=== PATIENT | female | born 1930 | race Caucasian/White ===

== ENCOUNTER → 2016-12-19 | Outpatient (CLI) | payer MEDICARE ==
--- NOTE | 2016-12-21 11:19 | CARD ---
APPROVED REPORT EXAM: Two-dimensional and M-mode echocardiogram with Doppler and color Doppler. Other Information Quality : GoodHR: 81bpm INDICATION Mitral regurgitation RISK FACTORS Hypertension 2D DIMENSIONS Left Atrium(2D)3.7 (1.6-4.0cm)IVSd0.9 (0.7-1.1cm) Aortic Root(2D)3.1 (2.0-3.7cm)LVDd4.2 (3.9-5.9cm) LVOT Diameter2.1 (1.8-2.4cm)PWd0.9 (0.7-1.1cm) LVDs2.8 (2.5-4.0cm)FS (%) 33.8 % SV49.5 mlLVEF(%)63.1 (>50%) Aortic Valve AoV Peak Sathish.188.1cm/sAoV VTI35.2cm AO Peak GR.14.2mmHgLVOT Peak Sathish.104.5cm/s AO Mean GR.7mmHgAVA (VMAX)1.97cm2 Mitral Valve MV E Vmlgioyf740.1cm/sMV DECEL GWIO601tt MV A Enfmldam17.5cm/sE/A Ratio1.6 MV A Wlldtiyj852xx Pulmonary Valve PV Peak Kfeyzsuk53.3cm/s Tricuspid Valve TR P. Xqjfpftk753ih/sTR Peak Gr.37mmHg Pulmonary Vein S1 Anvtpdem54.5cm/sD2 Jtewamfe546.6cm/s PVa druqjroy17qxkk LEFT VENTRICLE The left ventricle is normal size. There is normal left ventricular wall thickness. The left ventricu lar systolic function is normal. The Ejection Fraction is 60-65%. There is normal LV segmental wall m otion. Transmitral Doppler flow pattern is Grade IV-fixed restrictive diastolic dysfunction. Mitral v alve deceleration time is 143. RIGHT VENTRICLE The right ventricle is normal size. There is normal right ventricular wall thickness. The right ventr icular systolic function is normal. ATRIA The left atrium is severely dilated. The right atrium is mildly dilated. The interatrial septum is in tact with no evidence for an atrial septal defect or patent foramen ovale as noted on 2-D or Doppler imaging. AORTIC VALVE The aortic valve is mildly sclerotic. The aortic valve is trileaflet. Doppler and Color Flow revealed mild aortic regurgitation. There is no significant aortic valvular stenosis. MITRAL VALVE Mitral annular calcification is moderate. The mitral valve leaflets are thickened. There is mild mitr al valve prolapse of the posterior leaflet present. There is a flail posterior mitral valve leaflet s een well projected into the left atrium in multiple views. There is no mitral valve stenosis. Doppler and Color Flow revealed severe mitral regurgitation. TRICUSPID VALVE Doppler and Color Flow revealed moderate tricuspid regurgitation. The pulmonary artery systolic press ure is estimated at 42 mmHg. There is mild-moderate pulmonary hypertension. PULMONIC VALVE Doppler and Color Flow revealed trace pulmonic valvular regurgitation. There is no pulmonic valvular stenosis. GREAT VESSELS The aortic root is normal in size. The ascending aorta is normal in size. The pulmonary artery is nor mal. The IVC is normal in size and collapses >50% with inspiration. PERICARDIAL EFFUSION There is no evidence of significant pericardial effusion. Critical Notification Critical Value: No <Conclusion> The left ventricular systolic function is normal. The Ejection Fraction is 60-65%. There is normal LV segmental wall motion. The left atrium is severely dilated. Mld aortic regurgitation. Severe mitral regurgitation. Moderate tricuspid regurgitation. The pulmonary artery systolic pressure is estimated at 42 mmHg. There is mild-moderate pulmonary hypertension. There is no evidence of significant pericardial effusion.
== END | disposition home or self-care (01) ==
LOC: ECHO 13:54
PROVIDERS: ATTEND Internal Medicine Cardiovascular Disease
DX: I34.0 Nonrheumatic mitral (valve) insufficiency (principal); I34.1 Nonrheumatic mitral (valve) prolapse; I27.2 Other secondary pulmonary hypertension; I07.1 Rheumatic tricuspid insufficiency; I35.1 Nonrheumatic aortic (valve) insufficiency
CPT/HCPCS: 93306

== ENCOUNTER → 2018-07-04 | Outpatient (CLI) | payer BC, MEDICARE ==
[~2018-07-04] MED LIST: REGADENOSON 0.4 MG/5 ML DISP.SYRIN. IV ONE
--- NOTE | 2018-07-04 12:16 | CARD ---
MR#: [id number] Date of Study: 07/04/2018 Ordering Physician: DOUG ANDERSON, Referring Physician: DOUG ANDERSON Tech: Martha Lopez RDCS APPROVED REPORT EXAM: Two-dimensional and M-mode echocardiogram with Doppler and color Doppler. Other Information Quality : GoodHR: 65bpm Rhythm : NSR INDICATION Mitral Valve Disease 2D DIMENSIONS Left Atrium(2D)5.2 (1.6-4.0cm)IVSd1.1 (0.7-1.1cm) Aortic Root(2D)3.3 (2.0-3.7cm)LVDd5.3 (3.9-5.9cm) LVOT Diameter1.8 (1.8-2.4cm)PWd0.7 (0.7-1.1cm) LVDs2.4 (2.5-4.0cm)FS (%) 53.6 % SV112.3 ml M-Mode DIMENSIONS Left Atrium(MM)5.38 (2.5-4.0cm)Aortic Root3.26 (2.2-3.7cm) Aortic Valve AoV Peak Sathish.169.3cm/sAoV VTI34.4cm AO Peak GR.11.5mmHgLVOT Peak Sathish.83.6cm/s AO Mean GR.5mmHgAVA (VMAX)1.21cm2 RIVAS (VTI)1.88fl0DF P 1/2 Afws566vr Mitral Valve MV E Hhkqkxve726.4cm/sMV E Peak Gr.116mmHg MV DECEL [id number] A Rcfwuywl48.9cm/s MV E Mean Gr.2mmHgE/A Ratio2.8 MV A Jsjipbvt101qz Pulmonary Valve PV Peak Hvfsdygy766.2cm/s Tricuspid Valve TR P. Aapituce374sc/sTR Peak Gr.62mmHg LEFT VENTRICLE The Left Ventricle is borderline dilated. There is normal left ventricular wall thickness. The left v entricular systolic function is normal and the ejection fraction is within normal range. LV ejection fraction is 55-60%. There is normal LV segmental wall motion. Transmitral Doppler flow pattern is abn ormal. Transmitral Doppler flow pattern is Grade IV-fixed restrictive diastolic dysfunction. RIGHT VENTRICLE The right ventricle is normal size. There is normal right ventricular wall thickness. The right ventr icular systolic function is normal. ATRIA The left atrium is moderately dilated. The right atrium is mildly dilated. Interatrial septum is inta ct without evidence of ASD or PFO, noted on 2-D or Doppler imaging. AORTIC VALVE The aortic valve is moderately thickened. The aortic valve is trileaflet. Doppler and Color Flow reve aled trace to mild aortic regurgitation. There is mild valvular aortic stenosis. MITRAL VALVE Mitral annular calcification is moderate. There is a prolapsed posterior mitral valve leaflet with po ssible flail posterior leaflet. There is no mitral valve stenosis. The mitral regurgitant jet is ante riorly directed. Doppler and Color-flow revealed severe mitral regurgitation. TRICUSPID VALVE The tricuspid valve leaflets are thickened , but open well. Doppler and Color Flow revealed moderate to severe tricuspid regurgitation. The PA pressure was estimated at 64 mmHg. There is no tricuspid va lve prolapse or vegetation. There is no tricuspid valve stenosis. PULMONIC VALVE The pulmonic valve is not well visualized. Doppler and Color Flow revealed no pulmonic valvular regur gitation. There is no pulmonic valvular stenosis. GREAT VESSELS The aortic root is normal in size. PERICARDIAL EFFUSION There is no evidence of significant pericardial effusion. Critical Notification Critical Value: No <Conclusion> The Left Ventricle is borderline dilated. The left ventricular systolic function is normal and the ejection fraction is within normal range. LV ejection fraction is 55-60%. The left atrium is moderately dilated. The right atrium is mildly dilated. Interatrial septum is intact without evidence of ASD or PFO, noted on 2-D or Doppler imaging. There is mild valvular aortic stenosis. Doppler and Color Flow revealed trace to mild aortic regurgitation. The mitral regurgitant jet is anteriorly directed. Doppler and Color-flow revealed severe mitral regurgitation. Doppler and Color Flow revealed moderate to severe tricuspid regurgitation. The PA pressure was estimated at 64 mmHg. Signed by : Martin Truong MD Electronically Approved : 07/04/2018 12:15:14
--- NOTE | 2018-07-04 14:39 | RAD ---
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 Consent: The procedure was explained to the patient in lay terms. Informed consent was witnessed. Jesús eout was entered into [employer]. History and Stress Test performed by LEOLA Marie Pharm. Details Pharmacologic stress testing was performed using 0.4mg per 5ml of regadenoson given intravenously ove r 7-10 seconds. Stress Symptoms No chest pain or symptoms. POST EXERCISE Reason for Termination: Infusion complete Max HR: 90 bpm Max Blood Pressure: 153/66mmHg Chest Pain: No. Arrhythmia: No. ST Change: No. INTERPRETATION Stress EKG Conclusion: The resting EKG shows a sinus rhythm and nonspecific ST-T wave changes. The stress EKG shows no significant changes from baseline. No EKG evidence of stress induced ischemia. Imaging Protocol IMAGE PROTOCOL: Rest Tc-99m/stress Tc-99m 1 day Rest: Stress: Viability: Radiopharm.Tc99m EjbcabquqXz86x Sestamibi Dose12.6mCi 33mCi Duration 13min. 13min. Img Date 07/04/2018 07/04/2018 Inj-Img Oxlu13nvf. 60min. Rest Admin Site:IV - Left AntecubitalAdministrator:LEOLA Marie Stress Admin Site: IV - Left AntecubitalAdministrator: LEOLA Marie STRESS DATA End Diast. Vol.138.0mlLVEDV index BSA98.0ml End Syst. Vol.41.0mlLVESV index BSA29.0ml Myocardial Wxwi362.0gEject. Fvbustum26.0% Stress Scores Regional WT0.00Summed WT4.00 Regional WM0.00Summed WM0.00 LV Perfusion The stress scans show no significant defects. The rest scans show no significant defects. Nuclear imaging shows no reversible ischemia or infarct. Wall Motion LV systolic function is normal with an EF of 70%. LV Perf. Quant 17 Seg. SSS0.00 17 Seg. SRS0.00 17 Seg. SDS0.00 Stress Defect Extent (% LAD)0.00Rest Defect Extent (% LAD)0.00Rev. Defect Extent (% LAD)0.00 Stress Defect Extent (% LCX) 0.00Rest Defect Extent (% LCX)0.00Rev. Defect Extent (% LCX)0.00 Stress Defect Extent (% RCA)0.00Rest Defect Extent (% RCA)0.00Rev. Defect Extent (% RCA)0.00 Stress Defect Extent (% VALENTINE)0.00Rest Defect Extent (% VALENTINE)0.00Rev. Defect Extent (% VALENTINE)0.00 Conclusion 1. No EKG evidence of stress induced ischemia. 2. Nuclear images show no reversible ischemia or infarct. 3. Normal LV systolic function with an ejection fraction of 70%. 4. Low risk Lexiscan nuclear stress test. Signed by : Martin Truong MD Electronically Approved : 07/04/2018 14:38:35
== END | disposition home or self-care (01) ==
LOC: NM 08:23
PROVIDERS: ATTEND Internal Medicine Cardiovascular Disease
DX: I08.1 Rheumatic disorders of both mitral and tricuspid valves (principal); I25.10 Atherosclerotic heart disease of native coronary artery without angina pectoris
CPT/HCPCS: 78452; 93017; 93306; 96374; 96375; 96376; A9500; J2785

== ENCOUNTER 2018-07-21 06:36 | Observation (INO) | payer BC, MEDICARE ==
[2018-07-21] VITALS (7 sets, daily range): BP systolic 119–145; BP diastolic 50–82
[~2018-07-21] VITALS: Ht 157.5 cm; Wt 41.7 kg
[2018-07-21] MEDS ORDERED: ceFAZolin SODIUM 1 GM in IV DEXTROSE 5% 50 ML IV ONE ×2 (07:00→14:00)
[2018-07-21] MEDS ORDERED: BACITRACIN 50,000 UNIT in IV NORMAL SALINE 250ML 250 ML IRR ONE (07:00)
[2018-07-21] MEDS ORDERED: GABA-585 PO (07:04)
[2018-07-21] MEDS ORDERED: CHOL10003 PO (07:04)
[2018-07-21] MEDS ORDERED: EZET10TA18 PO (07:04)
[2018-07-21] MEDS ORDERED: ASPI-630 PO (07:04)
[2018-07-21] MEDS ORDERED: CALC1TAB75 PO (07:04)
[2018-07-21] MEDS ORDERED: LISI-130 PO (07:04)
[2018-07-21] MEDS ORDERED: MULT1TAB52 PO (07:04)
[2018-07-21 07:20] LABS: HEMATOCRIT 41.1 % (36.0-47.0); HEMOGLOBIN 13.7 g/dL (12.0-15.5); RED BLOOD COUNT 4.25 x10^6/uL (3.50-5.40); RED CELL DISTRIBUTION WIDTH 14.4 % (11.5-14.5); WHITE BLOOD COUNT 4.2 x10^3/uL (4.0-11.0)
[2018-07-21 07:34] LABS: PROTHROMBIN TIME PATIENT 12.9 SEC (11.7-14.0)
[2018-07-21 07:36] LABS: CREATININE 1.5 mg/dL (0.6-1.0); GFR 32.9; POTASSIUM 3.5 mmol/L (3.5-5.1)
[2018-07-21] MEDS ORDERED: MIDAZOLAM HCL/PF 2 MG/2 ML VIAL. ONE (07:45)
[2018-07-21] MEDS ORDERED: fentaNYL PF VIAL 100 MCG/2 ML VIAL ONE (07:45)
[2018-07-21] MEDS ORDERED: LIDOCAINE 2%/EPI 1:100,000 20 ML VIAL. ONE (07:46)
[2018-07-21] MEDS ORDERED: LIDOCAINE 2%/EPI 1:100,000 20 ML VIAL. IJ ONE (08:15)
[2018-07-21] MEDS ORDERED: fentaNYL PF VIAL 100 MCG/2 ML VIAL IV ONE (08:15)
[2018-07-21] MEDS ORDERED: MIDAZOLAM HCL/PF 2 MG/2 ML VIAL. IV ONE (08:15)
[2018-07-21] MEDS ORDERED: IOHEXOL 300 MG/ML 100ML VIAL. ONE (08:27)
--- NOTE | 2018-07-21 09:37 | PDOC ---
MODERATE SEDATION ASSESSMENT RISKS/ALTERNATIVES Risks/Alternatives Risks and alternatives of this type of sedation and procedure discussed with: RISK/ALTERNATIVES: Patient H & P ON CHART H & P H & P on chart and reviewed for co-morbid conditions and appropriate labs. H&P ON CHART: Yes STATUS PREG STATUS ASSESSED: N/A MEDS/ALLERGIES REVIEWED Meds/Allergies Reviewed Medications and Allergies including time and route of recently administered narcotics and sedatives. MEDS/ALLERGIES REVIEWED: Yes ASA RATING ASA RATING: III AIRWAY ASSESSMENT Airway Assessment Airway patency, oral function limitations, presence of caps, crowns, dentures, partials, and ability to extend neck assessed. AIRWAY ASSESSMENT: Yes MALLAMPATI SCORE MALLAMPATI SCORE: II PRE-SEDATION ASSESSMENT PRE-SEDATION ASSESSMENT: Yes DOUG ANDERSON MD Jul 21, 2018 09:37
--- NOTE | 2018-07-21 09:43 | CARD ---
MR#: [id number] Date of Study: 07/21/2018 Ordering Physician: DOUG MCKENZIE, Referring Physician: DOUG MCKENZIE, Tech: APPROVED REPORT PROCEDURES Successful implantation of Biotronik dual-chamber permanent pacemaker Moderate sedation: 50 min INDICATIONS Sick sinus syndrome, tachycardia-bradycardia syndrome and significant pauses PROCEDURE After explaining the risks, benefits, and alternative options, informed consent was obtained from the patient. The patient was brought to the cardiac catheterization lab and the left chest and shoulder were prepp ed and draped in a sterile manner. 30 mL of 2% lidocaine was infiltrated into the skin and subcutaneous tissues for local anesthesia. An incision was made over the left infraclavicular fossa and using blunt dissection and cautery a pocke t was created. Venous access was obtained in the left subclavian artery after obtaining venogram and 8 and 6 Cymro sheaths inserted. A Biotronik bipolar active fixation right ventricular lead model Solia, serial #[id number] was position ed in the right ventricle apex under fluoroscopy guidance. Following this, a Biotronik bipolar active fixation right atrial lead model Solia, serial #[id number] was positioned in the right atrial appendag e under fluoroscopy guidance. The leads were secured into place and attached to a Biotronik dual-jignesh nate permanent pacemaker generator model Eluna 8 DR-T ProMRI, serial #[id number]. This was placed in the pocket that was subsequently closed in 3 layers. Hemostasis was secured. The right ventricular lead showed a sensing amplitude of 9.5 mV, impedance of 720 ohms and a threshol d of 1.4 V. The right atrial lead showed a sensing amplitude of 2.1 mV, impedance of 457 ohms and a t hreshold of 1.8 V. Patient tolerated the procedure well. There were no immediate complications. CONCLUSION Successful implantation of Biotronik dual-chamber permanent pacemaker for sick sinus syndrome and sig nificant pauses Signed by : Doug Mckenzie, Electronically Approved : 07/21/2018 09:43:37
[2018-07-21] MEDS ORDERED: NO ANTICOAGULANT THERAPY. MC PRN (09:45)
--- NOTE | 2018-07-21 10:22 | RAD ---
Portable chest, 07/21/2018: HISTORY: Post pacemaker insertion No previous chest radiographs are available at this time for comparison purposes. The patient is rotated to the left. There has been a previous median sternotomy. A left-sided transvenous pacing device is in place with one lead extending into the right ventricle while the tip of the other lead is projected over the superior aspect of the right atrium. The heart is enlarged. Prominent pulmonary markings bilaterally are likely due to scarring. No pulmonary consolidation is seen. There is no evidence of pleural fluid or pneumothorax. The bony structures are demineralized. There are also several old healed rib fractures on the right. There is a mild thoracolumbar scoliosis with associated multilevel degenerative change. IMPRESSION: 1. Cardiomegaly and aortic atherosclerosis. 2. Mildly prominent pulmonary markings suggesting fibrosis. A component of low-grade interstitial edema cannot be excluded. Electronically signed by: Shashank Magallanes MD (07/21/2018 10:19 AM) [facility]
[2018-07-21] MEDS: ACETAMINOPHEN 325 MG TABLET. PO PRN ×3 (12:59→22:08)
[2018-07-21] MEDS ORDERED: HYDROcodone/APAP 5/325MG 1 TAB TABLET PO PRN ×2 (13:45)
[2018-07-21] MEDS ORDERED: EZETIMIBE 10 MG TABLET. PO SCH (18:00)
[2018-07-21] MEDS ORDERED: CALCIUM CARB/VIT D3 500/200 TABLET. PO SCH (18:00)
[2018-07-21] MEDS ORDERED: CHOLECALCIFEROL (VITAMIN D3) 1,000 UNIT TABLET PO SCH (18:00)
[2018-07-21] MEDS ORDERED: GABAPENTIN 100 MG CAPSULE. PO SCH (21:00)
[2018-07-22 03:37] VITALS: BP 140/75
[2018-07-22 07:00] VITALS: BP 134/81
[2018-07-22] MEDS ORDERED: ASPIRIN CHEWABLE 81 MG TABLET. PO SCH (08:00)
[2018-07-22] MEDS ORDERED: LISINOPRIL 20 MG TABLET PO SCH (09:00)
[2018-07-22] MEDS ORDERED: MULTIVITAMIN with MINERAL TABLET. PO SCH (09:00)
--- NOTE | 2018-07-22 09:48 | PDOC3 ---
ELROY VEGA TOPOGRAPHICAL DRAFTER 07/22/18 0948: Discharge Summary Visit Information Date of Admission: Jul 21, 2018 Date of Discharge: Jul 22, 2018 Admitting Diagnosis: symptomatic SSS Final Diagnosis post PPM, PAFIB Brief Hospital Course Allergies Allergies Coded Allergies Type Severity Reaction Last Updated Verified Sulfa (Sulfonamide Antibiotics) Allergy Mild HIVES 07/04/18 Yes Vital Signs Vital Signs Date Time Temp Pulse Resp B/P (MAP) Pulse Ox O2 Delivery O2 Flow Rate FiO2 07/22/18 08:19 75 140/75 07/22/18 08:00 Room Air 07/22/18 07:00 98.0 20 93 98.0 07/21/18 09:30 2.0 Lab Results Laboratory Tests Test 07/21/18 07:00 White Blood Count 4.2 x10^3/uL (4.0-11.0) Red Blood Count 4.25 x10^6/uL (3.50-5.40) Hemoglobin 13.7 g/dL (12.0-15.5) Hematocrit 41.1 % (36.0-47.0) Mean Corpuscular Volume 97 fL (79-100) Mean Corpuscular Hemoglobin 32 pg (25-35) Mean Corpuscular Hemoglobin Concent 33 g/dL (31-37) Red Cell Distribution Width 14.4 % (11.5-14.5) Platelet Count 123 x10^3/uL (140-400) Prothrombin Time 12.9 SEC (11.7-14.0) Prothromb Time International Ratio 1.0 (0.8-1.1) Activated Partial Thromboplast Time 30 SEC (24-38) Sodium Level 143 mmol/L (136-145) Potassium Level 3.5 mmol/L (3.5-5.1) Chloride Level 103 mmol/L (98-107) Carbon Dioxide Level 31 mmol/L (21-32) Anion Gap 9 (6-14) Blood Urea Nitrogen 27 mg/dL (7-20) Creatinine 1.5 mg/dL (0.6-1.0) Estimated GFR (Cockcroft-Gault) 32.9 Glucose Level 103 mg/dL (70-99) Calcium Level 10.0 mg/dL (8.5-10.1) Brief Hospital Course Ms. Munoz is an 88 yo female admitted for planned pacemaker placement. She has been noted with paroxysmal AFIB as an outpt but was also noted with tachybrady syndrome with significant pauses prompting PPM. Successful biotronik dual chamber PPM placed with no complications. Repeat interrogation revealed normal functioning device. Overnight her surgical pain is controlled. Left chest surgical incision is intact with minute serosanguineous drain otherwise well approximated with steristrips, mild bruising, no erythema or swelling. Neurovascular status to LUE intact with sling in place. Will have OT/ PT evaluate and make suggestion for optimize mobility given her age and LUE restriction. She is AOx3 with intermittent pacing. She is to start low dose eliquis for stroke prevention otherwise she will continue her usual home meds/ secondary prevention measures.In regards to her CAD it is stable, with her MR she remains asymptomatic and this is being treated medically. Follow up in office in 2 weeks for wound check. Discharge Information Condition at Discharge: Stable Follow Up: Weeks (2) Disposition/Orders: D/C to Home Scheduled Aspirin (Aspirin) 81 Mg Tab.chew, 1 TAB PO DAILY, #90 Ref 3 (Reported) Entered as Reported by: GEORGE CALVERT on 07/21/18703 Last Action: Continued on 07/21/181334 by Ceci Wilks Calcium Carbonate/Vitamin D3 (Calcium 600 + Vit D 200 Tablet) 1 Each Tablet, 1 EACH PO QEVNG, (Reported) Entered as Reported by: GEORGE CALVERT on 07/21/18703 Last Action: Converted on 07/21/181334 by Ceci Wilks Cholecalciferol (Vitamin D3) (Vitamin D3) 1,000 Unit Tablet, 1 TAB PO QEVNG, # 90 Ref 3 (Reported) Entered as Reported by: GEORGE CALVERT on 07/21/18703 Last Action: Continued on 07/21/181334 by Ceci Wilks Ezetimibe (Zetia) 10 Mg Tablet, 10 MG PO QEVNG, (Reported) Entered as Reported by: GEORGE CALVERT on 07/21/18703 Last Action: Continued on 07/21/181334 by Ceci Wilks Gabapentin (Gabapentin) 100 Mg Capsule, 200 MG PO HS, (Reported) Entered as Reported by: GEORGE CALVERT on 07/21/18703 Last Action: Continued on 07/21/181334 by Ceci Wilks Lisinopril (Lisinopril) 40 Mg Tablet, 40 MG PO DAILY for FOR HYPERTENSION, #30 Ref 0 (Reported) Entered as Reported by: GEORGE CALVERT on 07/21/18703 Last Action: Continued on 07/21/181334 by Ceci Wilks Multivitamin (Multivitamins) 1 Each Tablet, 1 TAB PO DAILY, #30 Ref 2 (Reported) Entered as Reported by: GEORGE CALVERT on 07/21/18703 Last Action: Converted on 07/21/181334 by Ceci Wilks Patient Instructions Patient Instructions Must know & what to expect after device implant: 1. Your surgical dressing should be removed prior to discharge from the hospital, but allow the steri- strips to fall off naturally. 2. Activity restrictions: DO NOT raise arm above shoulder level, lift anything heavier than a gallon of milk, and no push or pull motions such as vacuuming/lawn mowing, no swinging motions (golf), etc for 4 weeks. 3. It is OK to use a cell phone or other electronic devices just be sure you do not store it in a breast pocket on the side where the device was placed. 4. Device will be interrogated prior to your discharge from the hospital and then every 3 months for defibrillators and every 6 months for pacemakers. You may be asked to have your device checked remotely from home as well, but this will depend on your particular physicians preference. 5. You may remove the arm immobilizer the day after device placement. Wear the arm immobilizer/splint at night (during sleep times) for 2 week to prevent unintended arm movement that can cause lead dislodgement. 6. Do not drive for one week as the task of driving may lead to unintended arm motion that may cause lead dislodgement. The seatbelt will also rub against the incision site & cause irritation. 7. It is our recommendation that you utilize Tylenol at home for pain control. You need to call our office if you are having uncontrollable pain at the incision site. 8. Keep your incision clean and dry. It is OK to shower. DO NOT submerge in bath, pool, or hot tub, until cleared by your doctor, as this could lead to increase risk of infection.. It is OK to use regular soap just do not scrub the incision site. Water spray from shower should not directly hit the incision. Be sure to blot dry not rub. 9. Inspect your incision daily. If you notice any increased redness, swelling , or drainage, or if you start running a fever, call the office immediately. The number is [phone]. 10. For women, if you need to protect against irritation from the bra straps, you can place a piece of gauze over the incision site for cushion. Please be sure to tape it loosely to allow air to the site & remove the gauze when you remove the bra. 11. Be sure to carry your device identification information card in your wallet/purse at all times. 12. It is OK to go through security at the airport with your device, but be sure to let the TSA know prior to proceeding as the security settings change depending on varying factors. Please do whatever is requested by security at that time. 13. Some of the newer devices may be MRI compatible but, currently, the use of these devices is not widespread, so you likely will not be able to have an MRI. Please clarify this with your physician. If at any time, you feel lightheaded or dizzy/faint, stop what you are doing & lie down immediately. If you are driving, get to the side of the road quickly, turn your car off & call 911 on your cell phone. DO NOT continue to drive as this may cause an accident that seriously injures yourself &/or others. Call the office at [phone] for any questions or concerns. DOUG ANDERSON MD 07/22/18 1534: Discharge Summary Brief Hospital Course Brief Hospital Course Patient seen and examined. Agree with CORPORATE CONSULTANT's assessment and plan. Patient underwent successful permanent pacemaker implantation for sick sinus syndrome with significant pauses. Chest x-ray without any pneumothorax and incision looked good. Device interrogation showed normal function. We will prescribe eliquis to be started tomorrow for stroke prophylaxis secondary to her recent diagnosis of paroxysmal atrial fibrillation. ELROY VEGA APRN Jul 22, 2018 09:48 DOUG ANDERSON MD Jul 22, 2018 15:34
--- NOTE | 2018-07-22 09:56 | RAD ---
AP and Lateral Views of the Chest 07/22/2018 9:30 AM Indication: POST OP PACEMAKER DAY 1 Comparison: Chest radiograph, yesterday Findings: Dual-lead pacemaking device from a left subclavian approach is unchanged in configuration. No pneumothorax is identified. The lungs are hyperinflated with diffuse interstitial coarsening. The appearance is unchanged. Multiple chronic right-sided rib deformities are stable. Heart size is top normal. No acute osseous changes are seen. IMPRESSION: 1.Stable radiographic appearance of the chest without pneumothorax or other complication following pacemaker placement. 2. Similar findings of chronic lung disease Electronically signed by: Best Jeter MD (07/22/2018 9:53 AM) [facility]
[2018-07-22 11:00] VITALS: BP 131/67
== END 2018-07-22 14:38 | disposition home or self-care (01) ==
LOC: CCL 06:36 → 2 NORTH 07:00
PROVIDERS: ADMIT Internal Medicine Cardiovascular Disease; ATTEND Internal Medicine Cardiovascular Disease
DX: I49.5 Sick sinus syndrome (principal); I25.10 Atherosclerotic heart disease of native coronary artery without angina pectoris; I48.0 Paroxysmal atrial fibrillation
CPT/HCPCS: 33208; 36415; 71045; 71046; 80048; 85027; 85610; 85730; 96365; 96366; 96375; 97161; 97166; C1785; C1898; G0378; G0379; J0690; J2250; J3010; J3490; J7050; 99152; 99153; J7030

== ENCOUNTER → 2018-09-11 | Outpatient (CLI) | payer BC, MEDICARE ==
[~2018-09-11] MED LIST changes: +ASPI-630 PO; +CALC1TAB75 PO; +CHOL10003 PO; +EZET10TA18 PO; +GABA-585 PO; +LISI-130 PO; +MULT1TAB52 PO; -REGADENOSON 0.4 MG/5 ML DISP.SYRIN. IV ONE
[2018-09-11 11:36] LABS: CALCIUM 9.6 mg/dL (8.5-10.1); CREATININE 1.8 mg/dL (0.6-1.0); GFR 26.7; POTASSIUM 4.4 mmol/L (3.5-5.1)
== END | disposition home or self-care (01) ==
LOC: LAB 10:42
PROVIDERS: ATTEND Internal Medicine Cardiovascular Disease
DX: I50.33 Acute on chronic diastolic (congestive) heart failure (principal)
CPT/HCPCS: 36415; 80048

== ENCOUNTER → 2018-09-25 | Outpatient (CLI) | payer BC, MEDICARE ==
--- NOTE | 2018-09-26 12:34 | RAD ---
MR#: [id number] Date of Study: 09/25/2018 Ordering Physician: DOUG ANDERSON, Referring Physician: DOUG ANDERSON, Tech: Allie Carvajal RDMS, RVT, RTR APPROVED REPORT Patient Location : OUT-PATIENT Indications Lower Extremity Edema : Bilateral Findings Grayscale images of the bilateral lower 70 greater saphenous and lesser saphenous veins do not reveal any obvious evidence of thrombus. The right great saphenous vein measures 4.8 mm in the left great saphenous vein measures 3.6 mm. Ther e is no evidence of reflux in the bilateral greater and lesser saphenous veins. Critical Notification Critical Value: No <Conclusion> Negative for reflux in the bilateral greater and lesser saphenous veins Signed by : Ramiro Aguirre, Electronically Approved : 09/26/2018 12:32:35
== END | disposition home or self-care (01) ==
LOC: US 12:54
PROVIDERS: ATTEND Internal Medicine Cardiovascular Disease
DX: R60.0 Localized edema (principal); I11.0 Hypertensive heart disease with heart failure; I50.33 Acute on chronic diastolic (congestive) heart failure; E78.5 Hyperlipidemia, unspecified; M81.0 Age-related osteoporosis without current pathological fracture
CPT/HCPCS: 93970

== ENCOUNTER → 2019-02-05 | Outpatient (CLI) | payer BC, MEDICARE ==
--- NOTE | 2019-02-05 14:20 | KCIC ---
Examination: CT HEAD WO CONTRAST History: Unsteady gait, weakness Comparison/Correlation: None Findings: Axial images of the head were obtained without contrast. Atrophy is present. No intracranial hemorrhage, midline shift, or mass effect. Visualized paranasal sinuses are unremarkable. Globes and optic nerves are unremarkable. Impression: No suspicious process. PQRS Compliance Statement: One or more of the following individualized dose reduction techniques were utilized for this examination: 1. Automated exposure control 2. Adjustment of the mA and/or kV according to patient size 3. Use of iterative reconstruction technique Electronically signed by: Serafin Parikh MD (02/05/2019 2:17 PM) [facility]
== END | disposition home or self-care (01) ==
LOC: KCIC CT 12:08
PROVIDERS: ATTEND Psychiatry & Neurology Neurology with Special Qualifications in Child Neurology
DX: G31.89 Other specified degenerative diseases of nervous system (principal); R26.9 Unspecified abnormalities of gait and mobility
CPT/HCPCS: 70450

== ENCOUNTER 2019-05-25 15:23 | Inpatient (IN) | payer BC, MEDICARE ==
[~2019-05-25] VITALS: Ht 154.9 cm; Wt 39.5 kg
[~2019-05-25 15:23] MED LIST changes: +AMIO200T4 PO; +BISA10SU4 PR; +CYCL10TA2 PO; -EZET10TA18 PO; +EZET10TA20 PO; +HYDR-2761 PO; +LISI10TA2 PO; +Pantoprazole PO; +WARF2.5T71 PO
[2019-05-25] MEDS ORDERED: ACETAMINOPHEN 500 MG TABLET PO ONE (16:00)
[2019-05-25] MEDS ORDERED: fentaNYL PF VIAL 100 MCG/2 ML VIAL IV ONE ×2 (16:15→19:45)
[2019-05-25 16:21] LABS: BASO % 1 % (0-3); EOS % 1 % (0-3); HEMATOCRIT 27.8 % (36.0-47.0); HEMOGLOBIN 8.9 g/dL (12.0-15.5); LYMPH # 0.4 x10^3/uL (1.0-4.8); LYMPH % 10 % (24-48); MEAN CORPUSCULAR HEMOGLOBIN 28 pg (25-35); MEAN CORPUSCULAR HGB CONC 32 g/dL (31-37); MEAN CORPUSCULAR VOLUME 87 fL (79-100); MONO # 0.4 x10^3/uL (0.0-1.1); MONO % 9 % (0-9); NEUT # 3.4 x10^3/uL (1.8-7.7); NEUT % 79 % (31-73); PLATELET COUNT 187 x10^3/uL (140-400); RED BLOOD COUNT 3.18 x10^6/uL (3.50-5.40); RED CELL DISTRIBUTION WIDTH 19.1 % (11.5-14.5); WHITE BLOOD COUNT 4.3 x10^3/uL (4.0-11.0)
[2019-05-25 16:31] LABS: PROTHROMBIN TIME PATIENT 53.2 SEC (11.7-14.0)
[2019-05-25 16:34] LABS: CALCIUM 8.5 mg/dL (8.5-10.1); CREATININE 1.7 mg/dL (0.6-1.0); GFR 28.4; POTASSIUM 4.3 mmol/L (3.5-5.1)
[2019-05-25 16:37] LABS: BILIRUBIN,URINE NEGATIVE (NEG); CLARITY,URINE CLEAR; COLOR,URINE YELLOW; NITRITE,URINE NEGATIVE (NEG); PH,URINE 6.5; PROTEIN,URINE 30 mg/dL (NEG-TRACE); UROBILINOGEN,URINE 0.2 mg/dL (0.2 mg/dL)
[2019-05-25 16:38] LABS: ALBUMIN 3.3 g/dL (3.4-5.0); TOTAL BILIRUBIN 0.8 mg/dL (0.2-1.0); TOTAL PROTEIN 6.5 g/dL (6.4-8.2)
[2019-05-25 16:45] LABS: BACTERIA,URINE 0 /HPF (0-FEW); RBC,URINE TNTC /HPF (0-2); WBC,URINE 0 /HPF (0-4)
--- NOTE | 2019-05-25 17:43 | RAD ---
Exam: CT thoracic and lumbar spine without contrast INDICATION: Increasing pain post fall TECHNIQUE: Sequential axial images through the thoracic and lumbar spine obtained without IV contrast. Sagittal and coronal reformatted images were reconstructed from the axial data and reviewed. Comparisons: Radiographs 05/19/2019, CT 04/03/2019 FINDINGS: Thoracic spine: Compression deformity of the T12 vertebral body with greater than 50 percent height loss and retropulsion into the spinal canal measuring approximately 6 mm. Dextroconvex curvature of the lumbar spine is noted. No other fracture through the thoracic spine is identified. There is mild to moderate spinal canal stenosis at T12 secondary to retropulsion. Otherwise, no significant neural foraminal or spinal canal stenosis within the thoracic spine. Small bilateral pleural effusions with adjacent airspace disease, likely atelectasis. Heart is enlarged with mitral annular calcifications and cardiac pacer leads noted. Lumbar spine: Mild levoconvex curvature of the lumbar spine. Vertebral body heights are well-maintained. Grade 1 retrolisthesis of L1 on L2. No fracture through the lumbar spine there is a subacute appearing fracture through the left sacral wing likely involving the left sacroiliac joint. 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 IMPRESSION: 1. Compression deformity of the T12 vertebral body with greater than 50 percent height loss and retropulsion into the spinal canal measuring approximately 6 mm. This fracture is new when compared to the CT on 04/03/2019. 2. Subacute appearing vertically oriented fracture through the left sacral rock with likely involvement of the sacroiliac joint. Exposure: One or more of the following in the visualized dose reduction techniques were utilized for this examination: 1. Automated exposure control 2. Adjustment of the MA and/or KV according to patient size 3. Use of iterative of reconstructive technique Electronically signed by: Bonilla Lovelace MD (05/25/2019 5:40 PM) [facility]
--- NOTE | 2019-05-25 17:48 | PHYS DOC ---
Past Medical History Past Medical History: High Cholesterol, Hypertension Past Surgical History: Pacemaker Additional Past Surgical Histo: VALVE CLIP Alcohol Use: None Drug Use: None Adult General Chief Complaint Chief Complaint: ABNORMAL LABS [facility] Patient is a 89 year old female who presents with an elevated INR. The patient was sent here by her primary care office. Her reading at her primary care was an INR of 8. She is also complaining of severe back pain. The patient did recently have a hip replacement done and was at [facility]. Her son states that she was doing very well at [facility] but since she was discharged to home she has not been getting the same amount of exercise. She also has no appetite. She did have a fall recently but her son states there was no injury. She denies bleeding gums or any bleeding happening that is abnormal. Review of Systems Review of Systems Constitutional: Denies fever or chills [] Respiratory: Denies cough or shortness of breath [] Cardiovascular: No additional information not addressed in HPI [] GI: Denies abdominal pain, nausea, vomiting, bloody stools or diarrhea [] : Denies dysuria or hematuria [] Musculoskeletal: See history of present illness Integument: Denies rash or skin lesions [] Neurologic: Denies headache, focal weakness or sensory changes [] Endocrine: Denies polyuria or polydipsia [] All other systems were reviewed and found to be within normal limits, except as documented in this note. Current Medications Current Medications Current Medications Medications (Trade) Dose Ordered Sig/[facility] Start Time Stop Time Status Last Admin Dose Admin Acetaminophen (Tylenol) 1,000 mg 1X ONCE 05/25/19 16:00 05/25/19 16:01 DC 05/25/19 16:23 1,000 MG Fentanyl Citrate (Fentanyl 2ml Vial) 25 mcg 1X ONCE 05/25/19 16:15 05/25/19 16:16 DC 05/25/19 16:23 25 MCG Allergies Allergies Allergies Coded Allergies Type Severity Reaction Last Updated Verified Sulfa (Sulfonamide Antibiotics) Allergy Intermediate HIVES 04/01/19 Yes Physical Exam Physical Exam Constitutional: Well developed, well nourished, no acute distress, non-toxic appearance. [] Cardiovascular:Heart rate regular rhythm, no murmur [] Lungs & Thorax: Bilateral breath sounds clear to auscultation [] Abdomen: Bowel sounds normal, soft, no tenderness, no masses, no pulsatile masses. [] Skin: Warm, dry, no erythema, no rash. [] Back: tenderness to low back, no CVA tenderness. [] Extremities: No tenderness, no cyanosis, no clubbing, ROM intact, no edema. [] Neurologic: Alert and oriented X 3, normal motor function, normal sensory function, no focal deficits noted. [] Psychologic: Affect normal, judgement normal, mood normal. [] Current Patient Data Vital Signs Vital Signs Date Time Temp Pulse Resp B/P (MAP) Pulse Ox O2 Delivery O2 Flow Rate FiO2 05/25/19 15:45 98.2 70 18 162/69 (100) 96 Room Air 98.2 Lab Values Laboratory Tests Test 05/25/19 16:10 05/25/19 16:30 White Blood Count 4.3 x10^3/uL (4.0-11.0) Red Blood Count 3.18 x10^6/uL (3.50-5.40) L Hemoglobin 8.9 g/dL (12.0-15.5) L Hematocrit 27.8 % (36.0-47.0) L Mean Corpuscular Volume 87 fL (79-100) Mean Corpuscular Hemoglobin 28 pg (25-35) Mean Corpuscular Hemoglobin Concent 32 g/dL (31-37) Red Cell Distribution Width 19.1 % (11.5-14.5) H Platelet Count 187 x10^3/uL (140-400) Neutrophils (%) (Auto) 79 % (31-73) H Lymphocytes (%) (Auto) 10 % (24-48) L Monocytes (%) (Auto) 9 % (0-9) Eosinophils (%) (Auto) 1 % (0-3) Basophils (%) (Auto) 1 % (0-3) Neutrophils # (Auto) 3.4 x10^3/uL (1.8-7.7) Lymphocytes # (Auto) 0.4 x10^3/uL (1.0-4.8) L Monocytes # (Auto) 0.4 x10^3/uL (0.0-1.1) Eosinophils # (Auto) 0.0 x10^3/uL (0.0-0.7) Basophils # (Auto) 0.0 x10^3/uL (0.0-0.2) Prothrombin Time 53.2 SEC (11.7-14.0) H Prothrombin Time INR 5.9 (0.8-1.1) *H Activated Partial Thromboplast Time 55 SEC (24-38) H Sodium Level 143 mmol/L (136-145) Potassium Level 4.3 mmol/L (3.5-5.1) Chloride Level 106 mmol/L (98-107) Carbon Dioxide Level 28 mmol/L (21-32) Anion Gap 9 (6-14) Blood Urea Nitrogen 28 mg/dL (7-20) H Creatinine 1.7 mg/dL (0.6-1.0) H Estimated GFR (Cockcroft-Gault) 28.4 BUN/Creatinine Ratio 16 (6-20) Glucose Level 99 mg/dL (70-99) Calcium Level 8.5 mg/dL (8.5-10.1) Total Bilirubin 0.8 mg/dL (0.2-1.0) Aspartate Amino Transferase (AST) 45 U/L (15-37) H Alanine Aminotransferase (ALT) 32 U/L (14-59) Alkaline Phosphatase 205 U/L (46-116) H Total Protein 6.5 g/dL (6.4-8.2) Albumin 3.3 g/dL (3.4-5.0) L Albumin/Globulin Ratio 1.0 (1.0-1.7) Urine Collection Type U cath Urine Color Yellow Urine Clarity Clear Urine pH 6.5 Urine Specific [place] 1.020 Urine Protein 30 mg/dL (NEG-TRACE) Urine Glucose (UA) Negative mg/dL (NEG) Urine Ketones (Stick) Negative mg/dL (NEG) Urine Blood Large (NEG) Urine Nitrite Negative (NEG) Urine Bilirubin Negative (NEG) Urine Urobilinogen Dipstick 0.2 mg/dL (0.2 mg/dL) Urine Leukocyte Esterase Negative (NEG) Urine RBC Tntc /HPF (0-2) Urine WBC 0 /HPF (0-4) Urine Bacteria 0 /HPF (0-FEW) Laboratory Tests 05/25/19 16:10 Laboratory Tests 05/25/19 16:10 EKG EKG [] Radiology/Procedures Radiology/Procedures [][facility] [address] [place] [address] IMAGING REPORT Signed PATIENT: ADDISON GARCIA ACCOUNT: [id number] : 1930 LOCATION: ER AGE: 89 SEX: F EXAM STATUS: REG ER ORD. PHYSICIAN: SYDNEY MONSIVAIS APRN REASON: increasing pain post fall PROCEDURE: CT LUMBAR SPINE WO CONTRAST Exam: CT thoracic and lumbar spine without contrast INDICATION: Increasing pain post fall TECHNIQUE: Sequential axial images through the thoracic and lumbar spine obtained without IV contrast. Sagittal and coronal reformatted images were reconstructed from the axial data and reviewed. Comparisons: Radiographs 05/19/2019, CT 04/03/2019 FINDINGS: Thoracic spine: Compression deformity of the T12 vertebral body with greater than 50 percent height loss and retropulsion into the spinal canal measuring approximately 6 mm. Dextroconvex curvature of the lumbar spine is noted. No other fracture through the thoracic spine is identified. There is mild to moderate spinal canal stenosis at T12 secondary to retropulsion. Otherwise, no significant neural foraminal or spinal canal stenosis within the thoracic spine. Small bilateral pleural effusions with adjacent airspace disease, likely atelectasis. Heart is enlarged with mitral annular calcifications and cardiac pacer leads noted. Lumbar spine: Mild levoconvex curvature of the lumbar spine. Vertebral body heights are well-maintained. Grade 1 retrolisthesis of L1 on L2. No fracture through the lumbar spine there is a subacute appearing fracture through the left sacral wing likely involving the left sacroiliac joint. 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 IMPRESSION: 1. Compression deformity of the T12 vertebral body with greater than 50 percent height loss and retropulsion into the spinal canal measuring approximately 6 mm. This fracture is new when compared to the CT on 04/03/2019. 2. Subacute appearing vertically oriented fracture through the left sacral rock with likely involvement of the sacroiliac joint. Exposure: One or more of the following in the visualized dose reduction techniques were utilized for this examination: 1. Automated exposure control 2. Adjustment of the MA and/or KV according to patient size 3. Use of iterative of reconstructive technique Electronically signed by: Bonilla Hugo MD (05/25/2019 5:40 PM) [facility] DICTATED and SIGNED BY: BONILLA HUGO MD DATE: 05/25/191739 Course & Med Decision Making Course & Med Decision Making Pertinent Labs and Imaging studies reviewed. (See chart for details) []The patient is being admitted to Dr. Damon's service. She does have a T12 compression fracture as well as a fracture that appears to be involving her sacroiliac joint. Her INR now is 5.9. She was given fentanyl in the emergency department for her pain. Dragon Disclaimer Dragon Disclaimer This electronic medical record was generated, in whole or in part, using a voice recognition dictation system. Departure Departure Impression: Primary Impression: Elevated INR Additional Impressions: T12 compression fracture Sacral fracture Disposition: ADMITTED INPATIENT Admitting Physician: WARREN Condition: GOOD Referrals: SOURAV CASTREJON MD (PCP) Problem Qualifiers SYDNEY MONSIVAIS APRN May 25, 2019 17:48
[2019-05-25] MEDS ORDERED: BISACODYL 10 MG SUPP.RECT. PR PRN (19:30)
[2019-05-25] MEDS ORDERED: PHYTONADIONE 10 MG/ML ORAL SOLUTION. PO ONE (20:15)
--- NOTE | 2019-05-25 20:18 | PDOC1 ---
History and Physical Date of Admission Date of Admission DATE: 05/25/19 TIME: 20:11 Identification/Chief Complaint Chief Complaint back pain, weakness Source Source: Chart review, Patient History of Present Illness History of Present Illness Ms. Munoz was sent her by her primary care for admit, was in Dr. Cruz office, and had INR that was too high to be detected. recent hip fracture, operated on by Dr. Ramírez, then was at [facility] for 30 days, sent home 10 days ago, and has not done well at home, barely eating 3 bites at meals, worsening weakness and lethargy. She complains of back pain, and CT was done by the ER, and new T12 compression fx was found. her son gave me a detailed summary of events of the past 6 weeks, when she looked well and then when she declined after leaving [facility] and wanted to know why, asked me many primary care questions about vitamin K, osteoporosis treatment, chronic anemia, renal disease, then after I discussed those for about 20 + minutes, he complained that "no one will answer any of my questions" Past Medical History Cardiovascular: HTN, Other GI: No pertinent hx Heme/Onc: No pertinent hx Psych: No pertinent hx Rheumatologic: Other Infectious disease: No pertinent hx Past Surgical History Past Surgical History: Other Family History Family History: No Significant Social History Smoke: No ALCOHOL: none Drugs: None Current Medications Current Medications Current Medications Acetaminophen (Tylenol) 1,000 mg 1X ONCE PO Last administered on 05/25/19at 16:23; Start 05/25/19 at 16:00; Stop 05/25/19 at 16:01; Status DC Fentanyl Citrate (Fentanyl 2ml Vial) 25 mcg 1X ONCE IV Last administered on 05/25/19at 16:23; Start 05/25/19 at 16:15; Stop 05/25/19 at 16:16; Status DC Amiodarone HCl (Cordarone) 200 mg DAILY PO ; Start 05/26/19 at 09:00 Aspirin (Children'S Aspirin) 81 mg DAILY PO ; Start 05/26/19 at 09:00 Bisacodyl (Dulcolax Supp) 10 mg PRN DAILY PRN [place] CONSTIPATION; Start 05/25/19 at 19:30 Cyclobenzaprine HCl (Flexeril) 5 mg PRN Q12HR PRN PO MUSCLE SPASMS; Start 05/25/19 at 19:30 EZETIMIBE (Zetia) 10 mg QEVNG PO ; Start 05/26/19 at 18:00 Gabapentin (Neurontin) 100 mg HS PO ; Start 05/25/19 at 21:00 Acetaminophen/ Hydrocodone Bitart (Lortab 5/325) 1 tab PRN Q4HRS PRN PO MODERATE PAIN; Start 05/25/19 at 19:30 Lisinopril (Prinivil) 10 mg DAILY PO ; Start 05/26/19 at 09:00 Pantoprazole Sodium (Protonix) 40 mg DAILYAC PO ; Start 05/26/19 at 07:30 Fentanyl Citrate (Fentanyl 2ml Vial) 25 mcg 1X ONCE IV Last administered on 05/25/19at 19:46; Start 05/25/19 at 19:45; Stop 05/25/19 at 19:46; Status DC Phytonadione (Mephyton Oral Soln) 5 mg 1X ONCE PO ; Start 05/25/19 at 20:15; Stop 05/25/19 at 20:16 Active Scripts Active [Pantoprazole] 40 MG Tablet.dr 40 Mg PO DAILYAC 30 Days Bisacodyl 10 Mg Supp.rect 10 Mg [place] PRN DAILY PRN 14 Days Hydrocodone-Apap 5-325 (Hydrocodone Bit/Acetaminophen) 1 Tab Tablet 1 Tab PO PRN Q4HRS PRN 14 Days Cyclobenzaprine Hcl 10 Mg Tablet 5 Mg PO PRN Q12HR PRN 7 Days Reported Warfarin Sodium 2.5 Mg Tablet 2.5 Mg PO CONT PRN Amiodarone Hcl 200 Mg Tablet 1 Tab PO DAILY Aspirin 81 Mg Tab.chew 1 Tab PO DAILY Lisinopril 10 Mg Tablet 1 Tab PO DAILY Zetia (Ezetimibe) 10 Mg Tablet 10 Mg PO QEVNG Multivitamins (Multivitamin) 1 Each Tablet 1 Tab PO DAILY Calcium 600 + Vit D 200 Tablet (Calcium Carbonate/Vitamin D3) 1 Each Tablet 1 Each PO QEVNG Gabapentin (Gabapentin) 100 Mg Capsule 100 Mg PO HS Allergies Allergies: Coded Allergies: Sulfa (Sulfonamide Antibiotics) (Verified Allergy, Intermediate, HIVES, 04/01/19) ROS Review of System weight loss General: YES: Chills, Fatigue, Malaise, Appetite; No: Night Sweats, Other PSYCHOLOGICAL ROS: No: Anxiety, Behavioral Disorder, Concentration difficultie, Decreased libido, Depression, Disorientation, Hallucinations, Hostility, Irritablity, Memory difficulties, Mood Swings, Obsessive thoughts, Other Eyes: No Blurry vision, No Decreased vision, No Double vision, No Dry eyes, No Excessive tearing, No Eye Pain, No Itchy Eyes, No Loss of vision, No Photophobia, No Scotomata, No Uses contacts, No Uses glasses, No Other HEENT: No: Heacaches, Visual Changes, Hearing change, Nasal congestion, Nasal discharge, Oral lesions, Sinus pain, Sore Throat, Epistaxis, Sneezing, Snoring, Tinnitus, Vertigo, Vocal changes, Other Respiratory: No: Cough, Hemoptysis, Orthopnea, Pleuritic Pain, Shortness of breath, SOB with excertion, Sputum Changes, Stridor, Tachypnea, Wheezing, Other Cardiovascular: No Chest Pain, No Palpitations, No Orthopnea, No Paroxysmal Noc . Dyspnea, No Edema, No Lt Headedness, No Other Gastrointestinal: Yes Nausea; No Vomiting, No Abdominal Pain, No Diarrhea, No Constipation, No Melena, No Hematochezia, No Other Genitourinary: No Dysuria, No Frequency, No Incontinence, No Hematuria, No Retention, No Discharge, No Urgency, No Pain, No Flank Pain, No Other, No , No , No , No , No , No , No Musculoskeletal: Yes Gait Disturbance, Yes Joint Pain, Yes Joint Swelling, Yes Pain In: (back) Neurological: Yes Gait Disturbance; No Behavorial Changes, No Bowel/Bladder ControlChng, No Confusion, No Dizziness, No Headaches, No Impaired Coord/balance, No Memory Loss, No Numbness/Tingling, No Seizures, No Speech Problems, No Tremors, No Visual Changes, No Weakness, No Other Skin: Yes Dry Skin Physical Exam General: Alert, Cooperative, No acute distress, moderate distress HEENT: Atraumatic, PERRLA Abdomen: Normal bowel sounds, Soft Extremities: No cyanosis, No edema, Other (frail, weak) Skin: No breakdown, No significant lesion Neuro: Normal speech, Normal tone, Sensation intact Vitals Vitals Vital Signs Date Time Temp Pulse Resp B/P (MAP) Pulse Ox O2 Delivery O2 Flow Rate FiO2 05/25/19 15:45 98.2 70 18 162/69 (100) 96 Room Air 98.2 Labs Labs Laboratory Tests Test 05/25/19 16:10 05/25/19 16:30 White Blood Count 4.3 x10^3/uL (4.0-11.0) Red Blood Count 3.18 x10^6/uL (3.50-5.40) Hemoglobin 8.9 g/dL (12.0-15.5) Hematocrit 27.8 % (36.0-47.0) Mean Corpuscular Volume 87 fL (79-100) Mean Corpuscular Hemoglobin 28 pg (25-35) Mean Corpuscular Hemoglobin Concent 32 g/dL (31-37) Red Cell Distribution Width 19.1 % (11.5-14.5) Platelet Count 187 x10^3/uL (140-400) Neutrophils (%) (Auto) 79 % (31-73) Lymphocytes (%) (Auto) 10 % (24-48) Monocytes (%) (Auto) 9 % (0-9) Eosinophils (%) (Auto) 1 % (0-3) Basophils (%) (Auto) 1 % (0-3) Neutrophils # (Auto) 3.4 x10^3/uL (1.8-7.7) Lymphocytes # (Auto) 0.4 x10^3/uL (1.0-4.8) Monocytes # (Auto) 0.4 x10^3/uL (0.0-1.1) Eosinophils # (Auto) 0.0 x10^3/uL (0.0-0.7) Basophils # (Auto) 0.0 x10^3/uL (0.0-0.2) Prothrombin Time 53.2 SEC (11.7-14.0) Prothromb Time International Ratio 5.9 (0.8-1.1) Activated Partial Thromboplast Time 55 SEC (24-38) Sodium Level 143 mmol/L (136-145) Potassium Level 4.3 mmol/L (3.5-5.1) Chloride Level 106 mmol/L (98-107) Carbon Dioxide Level 28 mmol/L (21-32) Anion Gap 9 (6-14) Blood Urea Nitrogen 28 mg/dL (7-20) Creatinine 1.7 mg/dL (0.6-1.0) Estimated GFR (Cockcroft-Gault) 28.4 BUN/Creatinine Ratio 16 (6-20) Glucose Level 99 mg/dL (70-99) Calcium Level 8.5 mg/dL (8.5-10.1) Total Bilirubin 0.8 mg/dL (0.2-1.0) Aspartate Amino Transf (AST/SGOT) 45 U/L (15-37) Alanine Aminotransferase (ALT/SGPT) 32 U/L (14-59) Alkaline Phosphatase 205 U/L (46-116) Total Protein 6.5 g/dL (6.4-8.2) Albumin 3.3 g/dL (3.4-5.0) Albumin/Globulin Ratio 1.0 (1.0-1.7) Urine Collection Type U cath Urine Color Yellow Urine Clarity Clear Urine pH 6.5 Urine Specific [place] 1.020 Urine Protein 30 mg/dL (NEG-TRACE) Urine Glucose (UA) Negative mg/dL (NEG) Urine Ketones (Stick) Negative mg/dL (NEG) Urine Blood Large (NEG) Urine Nitrite Negative (NEG) Urine Bilirubin Negative (NEG) Urine Urobilinogen Dipstick 0.2 mg/dL (0.2 mg/dL) Urine Leukocyte Esterase Negative (NEG) Urine RBC Tntc /HPF (0-2) Urine WBC 0 /HPF (0-4) Urine Bacteria 0 /HPF (0-FEW) Laboratory Tests Test 05/25/19 16:10 05/25/19 16:30 White Blood Count 4.3 x10^3/uL (4.0-11.0) Red Blood Count 3.18 x10^6/uL (3.50-5.40) Hemoglobin 8.9 g/dL (12.0-15.5) Hematocrit 27.8 % (36.0-47.0) Mean Corpuscular Volume 87 fL (79-100) Mean Corpuscular Hemoglobin 28 pg (25-35) Mean Corpuscular Hemoglobin Concent 32 g/dL (31-37) Red Cell Distribution Width 19.1 % (11.5-14.5) Platelet Count 187 x10^3/uL (140-400) Neutrophils (%) (Auto) 79 % (31-73) Lymphocytes (%) (Auto) 10 % (24-48) Monocytes (%) (Auto) 9 % (0-9) Eosinophils (%) (Auto) 1 % (0-3) Basophils (%) (Auto) 1 % (0-3) Neutrophils # (Auto) 3.4 x10^3/uL (1.8-7.7) Lymphocytes # (Auto) 0.4 x10^3/uL (1.0-4.8) Monocytes # (Auto) 0.4 x10^3/uL (0.0-1.1) Eosinophils # (Auto) 0.0 x10^3/uL (0.0-0.7) Basophils # (Auto) 0.0 x10^3/uL (0.0-0.2) Prothrombin Time 53.2 SEC (11.7-14.0) Prothromb Time International Ratio 5.9 (0.8-1.1) Activated Partial Thromboplast Time 55 SEC (24-38) Sodium Level 143 mmol/L (136-145) Potassium Level 4.3 mmol/L (3.5-5.1) Chloride Level 106 mmol/L (98-107) Carbon Dioxide Level 28 mmol/L (21-32) Anion Gap 9 (6-14) Blood Urea Nitrogen 28 mg/dL (7-20) Creatinine 1.7 mg/dL (0.6-1.0) Estimated GFR (Cockcroft-Gault) 28.4 BUN/Creatinine Ratio 16 (6-20) Glucose Level 99 mg/dL (70-99) Calcium Level 8.5 mg/dL (8.5-10.1) Total Bilirubin 0.8 mg/dL (0.2-1.0) Aspartate Amino Transf (AST/SGOT) 45 U/L (15-37) Alanine Aminotransferase (ALT/SGPT) 32 U/L (14-59) Alkaline Phosphatase 205 U/L (46-116) Total Protein 6.5 g/dL (6.4-8.2) Albumin 3.3 g/dL (3.4-5.0) Albumin/Globulin Ratio 1.0 (1.0-1.7) Urine Collection Type U cath Urine Color Yellow Urine Clarity Clear Urine pH 6.5 Urine Specific [place] 1.020 Urine Protein 30 mg/dL (NEG-TRACE) Urine Glucose (UA) Negative mg/dL (NEG) Urine Ketones (Stick) Negative mg/dL (NEG) Urine Blood Large (NEG) Urine Nitrite Negative (NEG) Urine Bilirubin Negative (NEG) Urine Urobilinogen Dipstick 0.2 mg/dL (0.2 mg/dL) Urine Leukocyte Esterase Negative (NEG) Urine RBC Tntc /HPF (0-2) Urine WBC 0 /HPF (0-4) Urine Bacteria 0 /HPF (0-FEW) VTE Prophylaxis Ordered VTE Prophylaxis Devices: Yes VTE Pharmacological Prophylaxi: Yes Assessment/Plan Assessment/Plan supratherapeutic INR, will give PO vit K, as she has T12 compression fracture and may benefit from vertebroplasty weakness and debility, Pt and OT, consult physiatry, recent mitral valve repair, she requested Dr. Mckenzie be consulted Teresa Ramírez, recent surg for fractured hip CKD4 anemia of CKD NANDO APONTE MD May 25, 2019 20:18
[2019-05-25] MEDS: GABAPENTIN 100 MG CAPSULE. PO SCH (21:00)
[2019-05-25 21:37] LABS: FECAL OB PT POSITIVE (NEG)
[2019-05-25 21:40] VITALS: BP 153/55
[2019-05-25] MEDS ORDERED: TIZA2CAP PO (23:19)
[2019-05-25 23:25] VITALS: BP 137/77
[2019-05-25] MEDS ORDERED: tiZANidine 4 MG TABLET. PO ONE (23:55)
[2019-05-26 03:26] VITALS: BP 117/47
[2019-05-26 07:00] VITALS: BP 133/59
[2019-05-26 08:17] LABS: BASO % 1 % (0-3); EOS # 0.1 x10^3/uL (0.0-0.7); EOS % 3 % (0-3); HEMATOCRIT 24.9 % (36.0-47.0); HEMOGLOBIN 7.8 g/dL (12.0-15.5); LYMPH # 0.5 x10^3/uL (1.0-4.8); LYMPH % 14 % (24-48); MEAN CORPUSCULAR HEMOGLOBIN 28 pg (25-35); MEAN CORPUSCULAR HGB CONC 31 g/dL (31-37); MEAN CORPUSCULAR VOLUME 87 fL (79-100); MONO # 0.3 x10^3/uL (0.0-1.1); MONO % 8 % (0-9); NEUT # 2.5 x10^3/uL (1.8-7.7); NEUT % 74 % (31-73); PLATELET COUNT 174 x10^3/uL (140-400); RED BLOOD COUNT 2.85 x10^6/uL (3.50-5.40); RED CELL DISTRIBUTION WIDTH 19.3 % (11.5-14.5); WHITE BLOOD COUNT 3.5 x10^3/uL (4.0-11.0)
[2019-05-26 08:22] LABS: PROTHROMBIN TIME PATIENT 43.3 SEC (11.7-14.0)
[2019-05-26 08:38] LABS: ALBUMIN 2.9 g/dL (3.4-5.0); CREATININE 1.3 mg/dL (0.6-1.0); GFR 38.7; TOTAL BILIRUBIN 0.8 mg/dL (0.2-1.0); TOTAL PROTEIN 5.9 g/dL (6.4-8.2)
[2019-05-26] MEDS: CHOLECALCIFEROL (VITAMIN D3) 5,000 UNIT CAPSULE PO SCH (08:43)
[2019-05-26] MEDS: ASPIRIN CHEWABLE 81 MG TABLET. PO SCH (08:43)
[2019-05-26] MEDS: AMIODARONE HCL 200 MG TABLET. PO SCH (08:43)
[2019-05-26] MEDS: LISINOPRIL 10 MG TABLET PO SCH (08:44)
[2019-05-26] MEDS: PANTOPRAZOLE 40 MG TABLET.DR. PO SCH (08:44)
[2019-05-26] MEDS: HYDROcodone/APAP 5/325MG 1 TAB TABLET PO PRN ×2 (08:45→20:55)
--- NOTE | 2019-05-26 09:26 | PDOC2 ---
ELROY VEGA LINING CUTTER 05/26/19 0926: CARDIAC CONSULT DATE OF CONSULT Date of Consult DATE: 05/26/19 TIME: 08:55 REASON FOR CONSULT Reason for Consult: Mitral valve repair REFERRING PHYSICIAN Referring Physician: Nelson SOURCE Source: Chart review, Patient HISTORY OF PRESENT ILLNESS HISTORY OF PRESENT ILLNESS This is a pleasant 89 yo female admitted for complains of back pain. She fell sometimes this month not associated with dizziness or passing out and it did not hurt at first but after a few days she has been having midback pain that moves to her lower back intermittently. Her INR was also noted high at 8 and currently at 4.5. No obvious bleed. No cardiac symptoms. She has been complaint with her medications. PAST MEDICAL HISTORY Cardiovascular: AFIB, CAD, HTN, Hyperlipidemia, Valve insufficiency, Other (SSS) CENTRAL NERVOUS SYSTEM: Periperal neuropathy Musculoskeletal: Osteoarthritis Endocrine: Osteoporosis PAST SURGICAL HISTORY Past Surgical History: Pacemaker (Biotronik), Arthroscopy (left ORIF 04/02/2019), CABG (x5), Other (Mitral clip 10/2018) FAMILY HISTORY Family History: Heart Disease (father) SOCIAL HISTORY Smoke: No ALCOHOL: none Drugs: None Lives: with Family CURRENT MEDICATIONS CURRENT MEDICATIONS Current Medications Medications (Trade) Dose Ordered Sig/Jacob Route PRN Reason Start Time Stop Time Status Last Admin Dose Admin Acetaminophen (Tylenol) 1,000 mg 1X ONCE PO 05/25/19 16:00 05/25/19 16:01 DC 05/25/19 16:23 Fentanyl Citrate (Fentanyl 2ml Vial) 25 mcg 1X ONCE IV 05/25/19 16:15 05/25/19 16:16 DC 05/25/19 16:23 Amiodarone HCl (Cordarone) 200 mg DAILY PO 05/26/19 09:00 05/26/19 08:45 Aspirin (Children'S Aspirin) 81 mg DAILY PO 05/26/19 09:00 05/26/19 08:45 Acetaminophen/ Hydrocodone Bitart (Lortab 5/325) 1 tab PRN Q4HRS PRN PO MODERATE PAIN 05/25/19 19:30 05/26/19 08:45 Lisinopril (Prinivil) 10 mg DAILY PO 05/26/19 09:00 05/26/19 08:45 Pantoprazole Sodium (Protonix) 40 mg DAILYAC PO 05/26/19 07:30 8/13/19 08:45 Fentanyl Citrate (Fentanyl 2ml Vial) 25 mcg 1X ONCE IV 05/25/19 19:45 05/25/19 19:46 DC 05/25/19 19:46 Phytonadione (Mephyton Oral Soln) 5 mg 1X ONCE PO 05/25/19 20:15 05/25/19 20:16 DC 05/25/19 21:04 Vitamin D (Vitamin D3) 5,000 unit DAILY PO 05/26/19 09:00 05/26/19 08:45 Tizanidine HCl (Zanaflex) 2 mg 1X ONCE PO 05/25/19 23:55 05/25/19 23:57 DC 05/26/19 02:29 ALLERGIES ALLERGIES: Coded Allergies: Sulfa (Sulfonamide Antibiotics) (Verified Allergy, Intermediate, HIVES, 04/01/19) ROS Review of System 14 point ROS evaluated with pertinent positives noted per HPI PHYSICAL EXAM General: Alert, Oriented X3, Cooperative, No acute distress HEENT: Atraumatic, Mucous membr. moist/pink Lungs: Clear to auscultation, Normal air movement Heart: Regular rate (SR with occasional V and atrial pacing), Other (5/6 ho losystolic apical murmur) Abdomen: Soft, No tenderness Extremities: No cyanosis, Other (trace LE edema) Skin: No breakdown, No significant lesion Neuro: Normal speech, Sensation intact Psych/Mental Status: Mental status NL, Mood NL MUSCULOSKELETAL: Osteoarthritic changes both hands VITALS/I&O VITALS/I&O: Vital Signs Date Time Temp Pulse Resp B/P (MAP) Pulse Ox O2 Delivery O2 Flow Rate FiO2 05/26/19 08:45 Room Air 05/26/19 08:45 69 133/59 05/26/19 07:00 97.9 16 96 97.9 I & O 05/25/19 05/25/19 05/26/19 14:59 22:59 06:59 Output Total 300 ml Balance -300 ml LABS Lab: Laboratory Tests Test 05/25/19 16:10 05/25/19 16:30 05/25/19 21:10 05/26/19 07:30 White Blood Count 4.3 x10^3/uL (4.0-11.0) 3.5 x10^3/uL (4.0-11.0) L Red Blood Count 3.18 x10^6/uL (3.50-5.40) L 2.85 x10^6/uL (3.50-5.40) L Hemoglobin 8.9 g/dL (12.0-15.5) L 7.8 g/dL (12.0-15.5) L Hematocrit 27.8 % (36.0-47.0) L 24.9 % (36.0-47.0) L Mean Corpuscular Volume 87 fL (79-100) 87 fL (79-100) Mean Corpuscular Hemoglobin 28 pg (25-35) 28 pg (25-35) Mean Corpuscular Hemoglobin Concent 32 g/dL (31-37) 31 g/dL (31-37) Red Cell Distribution Width 19.1 % (11.5-14.5) H 19.3 % (11.5-14.5) H Platelet Count 187 x10^3/uL (140-400) 174 x10^3/uL (140-400) Neutrophils (%) (Auto) 79 % (31-73) H 74 % (31-73) H Lymphocytes (%) (Auto) 10 % (24-48) L 14 % (24-48) L Monocytes (%) (Auto) 9 % (0-9) 8 % (0-9) Eosinophils (%) (Auto) 1 % (0-3) 3 % (0-3) Basophils (%) (Auto) 1 % (0-3) 1 % (0-3) Neutrophils # (Auto) 3.4 x10^3/uL (1.8-7.7) 2.5 x10^3/uL (1.8-7.7) Lymphocytes # (Auto) 0.4 x10^3/uL (1.0-4.8) L 0.5 x10^3/uL (1.0-4.8) L Monocytes # (Auto) 0.4 x10^3/uL (0.0-1.1) 0.3 x10^3/uL (0.0-1.1) Eosinophils # (Auto) 0.0 x10^3/uL (0.0-0.7) 0.1 x10^3/uL (0.0-0.7) Basophils # (Auto) 0.0 x10^3/uL (0.0-0.2) 0.0 x10^3/uL (0.0-0.2) Prothrombin Time 53.2 SEC (11.7-14.0) H Prothrombin Time INR 5.9 (0.8-1.1) *H Activated Partial Thromboplast Time 55 SEC (24-38) H Sodium Level 143 mmol/L (136-145) Potassium Level 4.3 mmol/L (3.5-5.1) Chloride Level 106 mmol/L (98-107) Carbon Dioxide Level 28 mmol/L (21-32) Anion Gap 9 (6-14) Blood Urea Nitrogen 28 mg/dL (7-20) H Creatinine 1.7 mg/dL (0.6-1.0) H Estimated GFR (Cockcroft-Gault) 28.4 BUN/Creatinine Ratio 16 (6-20) Glucose Level 99 mg/dL (70-99) Calcium Level 8.5 mg/dL (8.5-10.1) Total Bilirubin 0.8 mg/dL (0.2-1.0) Aspartate Amino Transferase (AST) 45 U/L (15-37) H Alanine Aminotransferase (ALT) 32 U/L (14-59) Alkaline Phosphatase 205 U/L (46-116) H Total Protein 6.5 g/dL (6.4-8.2) Albumin 3.3 g/dL (3.4-5.0) L Albumin/Globulin Ratio 1.0 (1.0-1.7) Urine Collection Type U cath Urine Color Yellow Urine Clarity Clear Urine pH 6.5 Urine Specific [place] 1.020 Urine Protein 30 mg/dL (NEG-TRACE) Urine Glucose (UA) Negative mg/dL (NEG) Urine Ketones (Stick) Negative mg/dL (NEG) Urine Blood Large (NEG) Urine Nitrite Negative (NEG) Urine Bilirubin Negative (NEG) Urine Urobilinogen Dipstick 0.2 mg/dL (0.2 mg/dL) Urine Leukocyte Esterase Negative (NEG) Urine RBC Tntc /HPF (0-2) Urine WBC 0 /HPF (0-4) Urine Bacteria 0 /HPF (0-FEW) Stool Occult Blood Positive (NEG) Test 05/26/19 07:38 Prothrombin Time 43.3 SEC (11.7-14.0) H Prothrombin Time INR 4.5 (0.8-1.1) *H Sodium Level 144 mmol/L (136-145) Potassium Level 4.0 mmol/L (3.5-5.1) Chloride Level 109 mmol/L (98-107) H Carbon Dioxide Level 28 mmol/L (21-32) Anion Gap 7 (6-14) Blood Urea Nitrogen 22 mg/dL (7-20) H Creatinine 1.3 mg/dL (0.6-1.0) H Estimated GFR (Cockcroft-Gault) 38.7 BUN/Creatinine Ratio 17 (6-20) Glucose Level 91 mg/dL (70-99) Calcium Level 8.0 mg/dL (8.5-10.1) L Total Bilirubin 0.8 mg/dL (0.2-1.0) Aspartate Amino Transferase (AST) 42 U/L (15-37) H Alanine Aminotransferase (ALT) 28 U/L (14-59) Alkaline Phosphatase 183 U/L (46-116) H Total Protein 5.9 g/dL (6.4-8.2) L Albumin 2.9 g/dL (3.4-5.0) L Albumin/Globulin Ratio 1.0 (1.0-1.7) Laboratory Tests 05/25/19 16:10 05/26/19 07:30 Laboratory Tests 05/25/19 16:10 05/26/19 07:38 ECHOCARDIOGRAM ECHOCARDIOGRAM <Conclusion> The Left Ventricle is borderline dilated. The left ventricular systolic function is normal and the ejection fraction is within normal range. LV ejection fraction is 55-60%. The left atrium is moderately dilated. The right atrium is mildly dilated. Interatrial septum is intact without evidence of ASD or PFO, noted on 2-D or Doppler imaging. There is mild valvular aortic stenosis. Doppler and Color Flow revealed trace to mild aortic regurgitation. The mitral regurgitant jet is anteriorly directed. Doppler and Color-flow revealed severe mitral regurgitation. Doppler and Color Flow revealed moderate to severe tricuspid regurgitation. The PA pressure was estimated at 64 mmHg. DATE: 07/04/18 1215 ASSESSMENT/PLAN ASSESSMENT/PLAN 1. Back pain with T12 fracture with subacute sacral fracture per CT 2. Mechanical fall: unclear when this month 3. Warfarin induced coagulopathy: INR initially at 5.9 and trending down. 4. Normocytic anemia: Hgb at 7.8. No obvious bleed 5. CAD: past CABG, clinically stable 6. PAFIB 7. 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 PPM: biotronik with hx of SSS. NOrmal function, 0 AFIB burden with intermittent atrial-V pacing. no significant arrhythmias. 9. HTN: controlled 10. HLP Recommendations 1. TTE with reeval [facility] 2. Consult rehab 3. Hold Warfarin. With hx of multiple falls, high risk for injury, and anemia, would consider stopping coumadin 4. Continue with ASA and amiodarone DOUG ANDERSON MD 05/27/19 0711: CARDIAC CONSULT ASSESSMENT/PLAN ASSESSMENT/PLAN Patient seen and examined 05/26/19. Agree with MARKER DELIVERY's assessment and plan. Fall appears to be mechanical. Orthopedics team following for T12 and sacral fracture s/p recent mitral valve clip procedure for mitral regurgitation with prominent holosystolic murmur at apex Repeat 2-D echocardiogram to assess LV function and evaluate MR Device check showed normal function CAD status clinically stable Continue amiodarone for rhythm maintenance. Patient is probably a poor candidate for long-term anticoagulation. Thank you for your consultation. ELROY VEGA APRN May 26, 2019 09:26 DOUG ANDERSON MD May 27, 2019 07:11
--- NOTE | 2019-05-26 09:31 | PDOC ---
PROGRESS NOTES History of Present Illness History of Present Illness VTE Prophylaxis Ordered VTE Prophylaxis Devices: Yes VTE Pharmacological Prophylaxi: Yes Assessment/Plan Assessment/Plan supratherapeutic INR, will give PO vit K, as she has T12 compression fracture and may benefit from vertebroplasty weakness and debility, Pt and OT, consult physiatry, recent mitral valve repair, she requested Dr. Mckenzie consulted Teresa Ramírez, recent surg for fractured hip CKD4 Small bilateral pleural effusions with mild underlying bilateral lower lobe atelectasis.. Bilateral pulmonary scarring. anemia of CKD heme pos stool x [address] Compression deformity of the T12 vertebral body with greater than 50 percent height loss and retropulsion into the spinal canal measuring approximately 6 mm. This fracture is new when compared to the CT on 04/03/2019. Subacute appearing vertically oriented fracture through the left sacral rock with likely involvement of the sacroiliac joint. T12 appears relatively acute. There is a high grade of compression with a nearly vertebrae plana configuration. The Left sacral fracture appears sub acute to chronic with associated sclerosis. INR supratheraputic. plan treat lesions based on severity of pain when inr normalizes. consider bone scan (patient has pacer) of the pelvis to assess possibility of occult right sacral fracture vit k 5 mg sq x 1 05/26 gi consult 38 min pt exam, chart review, > 50% of time spent with exam, chart review, pt care coordination Vitals Vitals Vital Signs Date Time Temp Pulse Resp B/P (MAP) Pulse Ox O2 Delivery O2 Flow Rate FiO2 05/26/19 08:45 Room Air 05/26/19 08:45 69 133/59 05/26/19 07:00 97.9 16 96 97.9 Physical Exam General: Alert, Oriented X3, Cooperative, No acute distress Heart: Regular rate (SR with occasional V and atrial pacing), Other (5/6 holosystolic apical murmur) Lungs: Clear Abdomen: Normal bowel sounds, Soft, No tenderness Extremities: No clubbing, No cyanosis, No edema, Other (trace LE edema) Skin: No breakdown, No significant lesion Labs LABS Exam: CT thoracic and lumbar spine without contrast INDICATION: Increasing pain post fall TECHNIQUE: Sequential axial images through the thoracic and lumbar spine obtained without IV contrast. Sagittal and coronal reformatted images were reconstructed from the axial data and reviewed. Comparisons: Radiographs 05/19/2019, CT 04/03/2019 FINDINGS: Thoracic spine: Compression deformity of the T12 vertebral body with greater than 50 percent height loss and retropulsion into the spinal canal measuring approximately 6 mm. Dextroconvex curvature of the lumbar spine is noted. No other fracture through the thoracic spine is identified. There is mild to moderate spinal canal stenosis at T12 secondary to retropulsion. Otherwise, no significant neural foraminal or spinal canal stenosis within the thoracic spine. Small bilateral pleural effusions with adjacent airspace disease, likely atelectasis. Heart is enlarged with mitral annular calcifications and cardiac pacer leads noted. Lumbar spine: Mild levoconvex curvature of the lumbar spine. Vertebral body heights are well-maintained. Grade 1 retrolisthesis of L1 on L2. No fracture through the lumbar spine there is a subacute appearing fracture through the left sacral wing likely involving the left sacroiliac joint. 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 IMPRESSION: 1. Compression deformity of the T12 vertebral body with greater than 50 percent height loss and retropulsion into the spinal canal measuring approximately 6 mm. This fracture is new when compared to the CT on 04/03/2019. 2. Subacute appearing vertically oriented fracture through the left sacral rock with likely involvement of the sacroiliac joint. Exposure: One or more of the following in the visualized dose reduction techniques were utilized for this examination: 1. Automated exposure control 2. Adjustment of the MA and/or KV according to patient size 3. Use of iterative of reconstructive technique Electronically signed by: Bonilla Hugo MD (05/25/2019 5:40 PM) [facility] DICTATED and SIGNED BY: BONILLA HUGO MD DATE: 05/25/19 1744 Laboratory Tests Test 05/25/19 16:10 05/25/19 16:30 05/25/19 21:10 05/26/19 07:30 White Blood Count 4.3 x10^3/uL (4.0-11.0) 3.5 x10^3/uL (4.0-11.0) Red Blood Count 3.18 x10^6/uL (3.50-5.40) 2.85 x10^6/uL (3.50-5.40) Hemoglobin 8.9 g/dL (12.0-15.5) 7.8 g/dL (12.0-15.5) Hematocrit 27.8 % (36.0-47.0) 24.9 % (36.0-47.0) Mean Corpuscular Volume 87 fL (79-100) 87 fL (79-100) Mean Corpuscular Hemoglobin 28 pg (25-35) 28 pg (25-35) Mean Corpuscular Hemoglobin Concent 32 g/dL (31-37) 31 g/dL (31-37) Red Cell Distribution Width 19.1 % (11.5-14.5) 19.3 % (11.5-14.5) Platelet Count 187 x10^3/uL (140-400) 174 x10^3/uL (140-400) Neutrophils (%) (Auto) 79 % (31-73) 74 % (31-73) Lymphocytes (%) (Auto) 10 % (24-48) 14 % (24-48) Monocytes (%) (Auto) 9 % (0-9) 8 % (0-9) Eosinophils (%) (Auto) 1 % (0-3) 3 % (0-3) Basophils (%) (Auto) 1 % (0-3) 1 % (0-3) Neutrophils # (Auto) 3.4 x10^3/uL (1.8-7.7) 2.5 x10^3/uL (1.8-7.7) Lymphocytes # (Auto) 0.4 x10^3/uL (1.0-4.8) 0.5 x10^3/uL (1.0-4.8) Monocytes # (Auto) 0.4 x10^3/uL (0.0-1.1) 0.3 x10^3/uL (0.0-1.1) Eosinophils # (Auto) 0.0 x10^3/uL (0.0-0.7) 0.1 x10^3/uL (0.0-0.7) Basophils # (Auto) 0.0 x10^3/uL (0.0-0.2) 0.0 x10^3/uL (0.0-0.2) Prothrombin Time 53.2 SEC (11.7-14.0) Prothromb Time International Ratio 5.9 (0.8-1.1) Activated Partial Thromboplast Time 55 SEC (24-38) Sodium Level 143 mmol/L (136-145) Potassium Level 4.3 mmol/L (3.5-5.1) Chloride Level 106 mmol/L (98-107) Carbon Dioxide Level 28 mmol/L (21-32) Anion Gap 9 (6-14) Blood Urea Nitrogen 28 mg/dL (7-20) Creatinine 1.7 mg/dL (0.6-1.0) Estimated GFR (Cockcroft-Gault) 28.4 BUN/Creatinine Ratio 16 (6-20) Glucose Level 99 mg/dL (70-99) Calcium Level 8.5 mg/dL (8.5-10.1) Total Bilirubin 0.8 mg/dL (0.2-1.0) Aspartate Amino Transf (AST/SGOT) 45 U/L (15-37) Alanine Aminotransferase (ALT/SGPT) 32 U/L (14-59) Alkaline Phosphatase 205 U/L (46-116) Total Protein 6.5 g/dL (6.4-8.2) Albumin 3.3 g/dL (3.4-5.0) Albumin/Globulin Ratio 1.0 (1.0-1.7) Urine Collection Type U cath Urine Color Yellow Urine Clarity Clear Urine pH 6.5 Urine Specific [place] 1.020 Urine Protein 30 mg/dL (NEG-TRACE) Urine Glucose (UA) Negative mg/dL (NEG) Urine Ketones (Stick) Negative mg/dL (NEG) Urine Blood Large (NEG) Urine Nitrite Negative (NEG) Urine Bilirubin Negative (NEG) Urine Urobilinogen Dipstick 0.2 mg/dL (0.2 mg/dL) Urine Leukocyte Esterase Negative (NEG) Urine RBC Tntc /HPF (0-2) Urine WBC 0 /HPF (0-4) Urine Bacteria 0 /HPF (0-FEW) Stool Occult Blood Positive (NEG) Test 05/26/19 07:38 Prothrombin Time 43.3 SEC (11.7-14.0) Prothromb Time International Ratio 4.5 (0.8-1.1) Sodium Level 144 mmol/L (136-145) Potassium Level 4.0 mmol/L (3.5-5.1) Chloride Level 109 mmol/L (98-107) Carbon Dioxide Level 28 mmol/L (21-32) Anion Gap 7 (6-14) Blood Urea Nitrogen 22 mg/dL (7-20) Creatinine 1.3 mg/dL (0.6-1.0) Estimated GFR (Cockcroft-Gault) 38.7 BUN/Creatinine Ratio 17 (6-20) Glucose Level 91 mg/dL (70-99) Calcium Level 8.0 mg/dL (8.5-10.1) Total Bilirubin 0.8 mg/dL (0.2-1.0) Aspartate Amino Transf (AST/SGOT) 42 U/L (15-37) Alanine Aminotransferase (ALT/SGPT) 28 U/L (14-59) Alkaline Phosphatase 183 U/L (46-116) Total Protein 5.9 g/dL (6.4-8.2) Albumin 2.9 g/dL (3.4-5.0) Albumin/Globulin Ratio 1.0 (1.0-1.7) Assessment and Plan Assessmemt and Plan Problems Medical Problems: (1) Elevated INR Status: Acute (2) Sacral fracture Status: Acute (3) T12 compression fracture Status: Acute Comment Review of Relevant I have reviewed the following items jaziel (where applicable) has been applied. Labs Laboratory Tests Test 05/25/19 16:10 05/25/19 16:30 05/25/19 21:10 05/26/19 07:30 White Blood Count 4.3 x10^3/uL (4.0-11.0) 3.5 x10^3/uL (4.0-11.0) Red Blood Count 3.18 x10^6/uL (3.50-5.40) 2.85 x10^6/uL (3.50-5.40) Hemoglobin 8.9 g/dL (12.0-15.5) 7.8 g/dL (12.0-15.5) Hematocrit 27.8 % (36.0-47.0) 24.9 % (36.0-47.0) Mean Corpuscular Volume 87 fL (79-100) 87 fL (79-100) Mean Corpuscular Hemoglobin 28 pg (25-35) 28 pg (25-35) Mean Corpuscular Hemoglobin Concent 32 g/dL (31-37) 31 g/dL (31-37) Red Cell Distribution Width 19.1 % (11.5-14.5) 19.3 % (11.5-14.5) Platelet Count 187 x10^3/uL (140-400) 174 x10^3/uL (140-400) Neutrophils (%) (Auto) 79 % (31-73) 74 % (31-73) Lymphocytes (%) (Auto) 10 % (24-48) 14 % (24-48) Monocytes (%) (Auto) 9 % (0-9) 8 % (0-9) Eosinophils (%) (Auto) 1 % (0-3) 3 % (0-3) Basophils (%) (Auto) 1 % (0-3) 1 % (0-3) Neutrophils # (Auto) 3.4 x10^3/uL (1.8-7.7) 2.5 x10^3/uL (1.8-7.7) Lymphocytes # (Auto) 0.4 x10^3/uL (1.0-4.8) 0.5 x10^3/uL (1.0-4.8) Monocytes # (Auto) 0.4 x10^3/uL (0.0-1.1) 0.3 x10^3/uL (0.0-1.1) Eosinophils # (Auto) 0.0 x10^3/uL (0.0-0.7) 0.1 x10^3/uL (0.0-0.7) Basophils # (Auto) 0.0 x10^3/uL (0.0-0.2) 0.0 x10^3/uL (0.0-0.2) Prothrombin Time 53.2 SEC (11.7-14.0) Prothromb Time International Ratio 5.9 (0.8-1.1) Activated Partial Thromboplast Time 55 SEC (24-38) Sodium Level 143 mmol/L (136-145) Potassium Level 4.3 mmol/L (3.5-5.1) Chloride Level 106 mmol/L (98-107) Carbon Dioxide Level 28 mmol/L (21-32) Anion Gap 9 (6-14) Blood Urea Nitrogen 28 mg/dL (7-20) Creatinine 1.7 mg/dL (0.6-1.0) Estimated GFR (Cockcroft-Gault) 28.4 BUN/Creatinine Ratio 16 (6-20) Glucose Level 99 mg/dL (70-99) Calcium Level 8.5 mg/dL (8.5-10.1) Total Bilirubin 0.8 mg/dL (0.2-1.0) Aspartate Amino Transf (AST/SGOT) 45 U/L (15-37) Alanine Aminotransferase (ALT/SGPT) 32 U/L (14-59) Alkaline Phosphatase 205 U/L (46-116) Total Protein 6.5 g/dL (6.4-8.2) Albumin 3.3 g/dL (3.4-5.0) Albumin/Globulin Ratio 1.0 (1.0-1.7) Urine Collection Type U cath Urine Color Yellow Urine Clarity Clear Urine pH 6.5 Urine Specific [place] 1.020 Urine Protein 30 mg/dL (NEG-TRACE) Urine Glucose (UA) Negative mg/dL (NEG) Urine Ketones (Stick) Negative mg/dL (NEG) Urine Blood Large (NEG) Urine Nitrite Negative (NEG) Urine Bilirubin Negative (NEG) Urine Urobilinogen Dipstick 0.2 mg/dL (0.2 mg/dL) Urine Leukocyte Esterase Negative (NEG) Urine RBC Tntc /HPF (0-2) Urine WBC 0 /HPF (0-4) Urine Bacteria 0 /HPF (0-FEW) Stool Occult Blood Positive (NEG) Test 05/26/19 07:38 Prothrombin Time 43.3 SEC (11.7-14.0) Prothromb Time International Ratio 4.5 (0.8-1.1) Sodium Level 144 mmol/L (136-145) Potassium Level 4.0 mmol/L (3.5-5.1) Chloride Level 109 mmol/L (98-107) Carbon Dioxide Level 28 mmol/L (21-32) Anion Gap 7 (6-14) Blood Urea Nitrogen 22 mg/dL (7-20) Creatinine 1.3 mg/dL (0.6-1.0) Estimated GFR (Cockcroft-Gault) 38.7 BUN/Creatinine Ratio 17 (6-20) Glucose Level 91 mg/dL (70-99) Calcium Level 8.0 mg/dL (8.5-10.1) Total Bilirubin 0.8 mg/dL (0.2-1.0) Aspartate Amino Transf (AST/SGOT) 42 U/L (15-37) Alanine Aminotransferase (ALT/SGPT) 28 U/L (14-59) Alkaline Phosphatase 183 U/L (46-116) Total Protein 5.9 g/dL (6.4-8.2) Albumin 2.9 g/dL (3.4-5.0) Albumin/Globulin Ratio 1.0 (1.0-1.7) Laboratory Tests Test 05/25/19 16:10 05/25/19 16:30 05/25/19 21:10 05/26/19 07:30 White Blood Count 4.3 x10^3/uL (4.0-11.0) 3.5 x10^3/uL (4.0-11.0) Red Blood Count 3.18 x10^6/uL (3.50-5.40) 2.85 x10^6/uL (3.50-5.40) Hemoglobin 8.9 g/dL (12.0-15.5) 7.8 g/dL (12.0-15.5) Hematocrit 27.8 % (36.0-47.0) 24.9 % (36.0-47.0) Mean Corpuscular Volume 87 fL (79-100) 87 fL (79-100) Mean Corpuscular Hemoglobin 28 pg (25-35) 28 pg (25-35) Mean Corpuscular Hemoglobin Concent 32 g/dL (31-37) 31 g/dL (31-37) Red Cell Distribution Width 19.1 % (11.5-14.5) 19.3 % (11.5-14.5) Platelet Count 187 x10^3/uL (140-400) 174 x10^3/uL (140-400) Neutrophils (%) (Auto) 79 % (31-73) 74 % (31-73) Lymphocytes (%) (Auto) 10 % (24-48) 14 % (24-48) Monocytes (%) (Auto) 9 % (0-9) 8 % (0-9) Eosinophils (%) (Auto) 1 % (0-3) 3 % (0-3) Basophils (%) (Auto) 1 % (0-3) 1 % (0-3) Neutrophils # (Auto) 3.4 x10^3/uL (1.8-7.7) 2.5 x10^3/uL (1.8-7.7) Lymphocytes # (Auto) 0.4 x10^3/uL (1.0-4.8) 0.5 x10^3/uL (1.0-4.8) Monocytes # (Auto) 0.4 x10^3/uL (0.0-1.1) 0.3 x10^3/uL (0.0-1.1) Eosinophils # (Auto) 0.0 x10^3/uL (0.0-0.7) 0.1 x10^3/uL (0.0-0.7) Basophils # (Auto) 0.0 x10^3/uL (0.0-0.2) 0.0 x10^3/uL (0.0-0.2) Prothrombin Time 53.2 SEC (11.7-14.0) Prothromb Time International Ratio 5.9 (0.8-1.1) Activated Partial Thromboplast Time 55 SEC (24-38) Sodium Level 143 mmol/L (136-145) Potassium Level 4.3 mmol/L (3.5-5.1) Chloride Level 106 mmol/L (98-107) Carbon Dioxide Level 28 mmol/L (21-32) Anion Gap 9 (6-14) Blood Urea Nitrogen 28 mg/dL (7-20) Creatinine 1.7 mg/dL (0.6-1.0) Estimated GFR (Cockcroft-Gault) 28.4 BUN/Creatinine Ratio 16 (6-20) Glucose Level 99 mg/dL (70-99) Calcium Level 8.5 mg/dL (8.5-10.1) Total Bilirubin 0.8 mg/dL (0.2-1.0) Aspartate Amino Transf (AST/SGOT) 45 U/L (15-37) Alanine Aminotransferase (ALT/SGPT) 32 U/L (14-59) Alkaline Phosphatase 205 U/L (46-116) Total Protein 6.5 g/dL (6.4-8.2) Albumin 3.3 g/dL (3.4-5.0) Albumin/Globulin Ratio 1.0 (1.0-1.7) Urine Collection Type U cath Urine Color Yellow Urine Clarity Clear Urine pH 6.5 Urine Specific [place] 1.020 Urine Protein 30 mg/dL (NEG-TRACE) Urine Glucose (UA) Negative mg/dL (NEG) Urine Ketones (Stick) Negative mg/dL (NEG) Urine Blood Large (NEG) Urine Nitrite Negative (NEG) Urine Bilirubin Negative (NEG) Urine Urobilinogen Dipstick 0.2 mg/dL (0.2 mg/dL) Urine Leukocyte Esterase Negative (NEG) Urine RBC Tntc /HPF (0-2) Urine WBC 0 /HPF (0-4) Urine Bacteria 0 /HPF (0-FEW) Stool Occult Blood Positive (NEG) Test 05/26/19 07:38 Prothrombin Time 43.3 SEC (11.7-14.0) Prothromb Time International Ratio 4.5 (0.8-1.1) Sodium Level 144 mmol/L (136-145) Potassium Level 4.0 mmol/L (3.5-5.1) Chloride Level 109 mmol/L (98-107) Carbon Dioxide Level 28 mmol/L (21-32) Anion Gap 7 (6-14) Blood Urea Nitrogen 22 mg/dL (7-20) Creatinine 1.3 mg/dL (0.6-1.0) Estimated GFR (Cockcroft-Gault) 38.7 BUN/Creatinine Ratio 17 (6-20) Glucose Level 91 mg/dL (70-99) Calcium Level 8.0 mg/dL (8.5-10.1) Total Bilirubin 0.8 mg/dL (0.2-1.0) Aspartate Amino Transf (AST/SGOT) 42 U/L (15-37) Alanine Aminotransferase (ALT/SGPT) 28 U/L (14-59) Alkaline Phosphatase 183 U/L (46-116) Total Protein 5.9 g/dL (6.4-8.2) Albumin 2.9 g/dL (3.4-5.0) Albumin/Globulin Ratio 1.0 (1.0-1.7) Medications Current Medications Acetaminophen (Tylenol) 1,000 mg 1X ONCE PO Last administered on 05/25/19at 16:23; Start 05/25/19 at 16:00; Stop 05/25/19 at 16:01; Status DC Fentanyl Citrate (Fentanyl 2ml Vial) 25 mcg 1X ONCE IV Last administered on 05/25/19 16:23; Start 05/25/19 at 16:15; Stop 05/25/19 at 16:16; Status DC Amiodarone HCl (Cordarone) 200 mg DAILY PO Last administered on 05/26/19 08:45; Start 05/26/19 at 09:00 Aspirin (Children'S Aspirin) 81 mg DAILY PO Last administered on 05/26/19 08:45; Start 05/26/19 at 09:00 Bisacodyl (Dulcolax Supp) 10 mg PRN DAILY PRN MT CONSTIPATION; Start 05/25/19 at 19:30 Cyclobenzaprine HCl (Flexeril) 5 mg PRN Q12HR PRN PO MUSCLE SPASMS; Start 05/25/19 at 19:30 EZETIMIBE (Zetia) 10 mg QEVNG PO ; Start 05/26/19 at 18:00 Gabapentin (Neurontin) 100 mg HS PO ; Start 05/25/19 at 21:00 Acetaminophen/ Hydrocodone Bitart (Lortab 5/325) 1 tab PRN Q4HRS PRN PO MODERATE PAIN Last administered on 05/26/19at 08:45; Start 05/25/19 at 19:30 Lisinopril (Prinivil) 10 mg DAILY PO Last administered on 05/26/19 08:45; Start 05/26/19 at 09:00 Pantoprazole Sodium (Protonix) 40 mg DAILYAC PO Last administered on 05/26/19 08:45; Start 05/26/19 at 07:30 Fentanyl Citrate (Fentanyl 2ml Vial) 25 mcg 1X ONCE IV Last administered on 05/25/19at 19:46; Start 05/25/19 at 19:45; Stop 05/25/19 at 19:46; Status DC Phytonadione (Mephyton Oral Soln) 5 mg 1X ONCE PO Last administered on 9at 21:04; Start 05/25/19 at 20:15; Stop 05/25/19 at 20:16; Status DC Vitamin D (Vitamin D3) 5,000 unit DAILY PO Last administered on 8/13/19at 08:45; Start 05/26/19 at 09:00 Tizanidine HCl (Zanaflex) 2 mg HS PO ; Start 05/26/19 at 21:00 Tizanidine HCl (Zanaflex) 2 mg 1X ONCE PO Last administered on 05/26/19at 02:29; Start 05/25/19 at 23:55; Stop 05/25/19 at 23:57; Status DC Active Scripts Active [Pantoprazole] 40 MG Tablet.dr 40 Mg PO DAILYAC 30 Days Bisacodyl 10 Mg Supp.rect 10 Mg MT PRN DAILY PRN 14 Days Hydrocodone-Apap 5-325 (Hydrocodone Bit/Acetaminophen) 1 Tab Tablet 1 Tab PO PRN Q4HRS PRN 14 Days Cyclobenzaprine Hcl 10 Mg Tablet 5 Mg PO PRN Q12HR PRN 7 Days Reported Tizanidine Hcl 2 Mg Capsule 2 Mg PO HS Warfarin Sodium 2.5 Mg Tablet 2.5 Mg PO CONT PRN Amiodarone Hcl 200 Mg Tablet 1 Tab PO DAILY Aspirin 81 Mg Tab.chew 1 Tab PO DAILY Lisinopril 10 Mg Tablet 1 Tab PO DAILY Zetia (Ezetimibe) 10 Mg Tablet 10 Mg PO QEVNG Multivitamins (Multivitamin) 1 Each Tablet 1 Tab PO DAILY Calcium 600 + Vit D 200 Tablet (Calcium Carbonate/Vitamin D3) 1 Each Tablet 1 Each PO QEVNG Gabapentin (Gabapentin) 100 Mg Capsule 100 Mg PO HS Vitals/I & O Vital Sign - Last 24 Hours 05/25/19 05/25/19 05/25/19 05/25/19 15:45 19:00 20:00 21:40 Temp 98.2 97.7 98.2 97.7 Pulse 70 75 72 69 Resp 18 18 18 16 B/P (MAP) 162/69 (100) 164/102 (122) 131/60 (83) 153/55 (87) Pulse Ox 96 97 96 95 O2 Delivery Room Air Room Air Room Air Room Air 05/25/19 05/25/19 05/26/19 05/26/19 22:00 23:25 02:30 03:26 Temp 98.3 97.7 98.3 97.7 Pulse 67 63 Resp 16 16 B/P (MAP) 137/77 (97) 117/47 (70) Pulse Ox 96 96 96 O2 Delivery Room Air Room Air Room Air 05/26/19 05/26/19 05/26/19 05/26/19 07:00 08:45 08:45 08:45 Temp 97.9 97.9 Pulse 69 69 69 Resp 16 B/P (MAP) 133/59 (83) 133/59 133/59 Pulse Ox 96 O2 Delivery Room Air Room Air Intake and Output 05/25/19 05/25/19 05/26/19 14:59 22:59 06:59 Output Total 300 ml Balance -300 ml Nutrition Consultation Dietary Evaluation: Recommendations by RD: Increase Calorie Intake, Protein supplementation Comments: REC regular diet with chocolate ensure tid Expected Outcomes/Goals: to meet > 75% est nutr needs Malnutrition Findings: Muscle Mass (Severe): Severe Depletion Body Fat Depletion (Non Severe: Mod to Severe Weight Status: Underweight CANDI KISER MD May 26, 2019 09:31
--- NOTE | 2019-05-26 10:10 | PDOC ---
Provider Note Provider Note IR NOTE Consulted for eval of T12 compression fracture and left sacral alar fracture. T12 appears relatively acute. There is a high grade of compression with a nearly vertebrae plana configuration. The Left sacral fracture appears sub acute to chronic with associated sclerosis. INR supratheraputic. Will follow and treat lesions based on severity of pain when this normalizes. In meantime, would consider bone scan (patient has pacer) of the pelvis to assess possibility of occult right sacral fracture which could be treated at same time. BRENDAN HEREDIA MD May 26, 2019 10:10
[2019-05-26 11:00] VITALS: BP 134/54
--- NOTE | 2019-05-26 13:16 | CONS ---
DATE OF CONSULTATION: 05/26/2019 ATTENDING PHYSICIAN: Dr. Damon. The patient was seen at the request of Dr. Damon for rehabilitation evaluation. HISTORY OF PRESENT ILLNESS: This is an 89-year-old female, retired, patient with known hypertension. The patient was admitted on 05/25/2019 after being seen by Dr. Johnson in the office, noted with INR being elevated. The patient apparently had left hip surgery done by Dr. Ramírez in early April or late March and she was at [facility] per assisted care unit and was discharged to home about 10 days ago. She apparently had a fall at home, but she is not doing well, taking care of herself. Since the fall, she is having increasing pain in her lower back. The patient had a CT scan of thoracic and lumbar spine done in the Emergency Room, which revealed a T12 vertebral body compression fracture, which is apparently new and also left sacral ala fracture. She complains of more pain over the left sacroiliac joint area. The patient was also noted with anemia, acute renal insufficiency. The patient apparently has been on anticoagulant medication for the last 1 year. She blames it on some discoloration of her feet and legs. The patient is known ALLERGIC TO SULFA. She lives with her son and had 1-2 steps to manage to enter the house from the front and from the garage without any railing, but there is railing to go to the basement. The patient admits severe pain while trying to move from side to side. She is comfortable lying supine. PHYSICAL EXAMINATION: Today revealed an elderly female. She is alert, oriented to time, place, person and circumstance and follows commands appropriately, moves all 4 extremities voluntarily where she had 4+/5 grade muscle strength and deep tendon reflexes are 1 to 2+ and symmetrical with absent ankle jerks and she had equal perception of touch and pinprick sensation bilaterally. The patient had painful and limited movements of lumbar spine and tenderness to palpation over left sacroiliac joint area. Her skin is intact other than some discoloration from chronic venous insufficiency of her feet and distal parts of her legs. The patient requires some help with rolling from side to side. ASSESSMENT: An elderly female with recent fall, status post left hip surgery, also had another fall and T12 vertebral body compression fracture and also left sacral ala fracture. She is having more pain and discomfort from sacral ala rather than T12 vertebral body compression fracture. The patient with known hypertension, recent mitral valve repair, on anticoagulation and T12 vertebral body compression fracture and left sacral ala fracture, peripheral neuropathy, acute renal insufficiency, anemia. RECOMMENDATIONS: Agree with the plans per IR to ask them to consider left sacroplasty of T12 vertebral body compression fracture. She is not symptomatic and there is some retroversion of the fracture fragments. With her mitral valve, I am not sure she can have MRI scan as she also had a pacemaker placement. Agree with the plans per physical therapy and occupational therapy to get her up as tolerated. Dr. Damon, I appreciate asking me to participate in the care of this interesting patient. I will be glad to see her for followup on as needed basis. MARIELENA RODRIGUEZ MD DR: JUAN/raphael JOB#: [id number] / [id number]
[2019-05-26] MEDS: LIDOCAINE (700MG/PATCH) PATCH. TD SCH (13:59)
--- NOTE | 2019-05-26 14:05 | CARD ---
MR#: [id number] Date of Study: 05/26/2019 Ordering Physician: ELROY VEGA, Referring Physician: NANDO APONTE Tech: Jessica Hines RDCS APPROVED REPORT EXAM: Two-dimensional and M-mode echocardiogram with Doppler and color Doppler. Other Information Quality : Good INDICATION Cardiac Disease: CAD Mitral Valve Disease History of Mitral Valve Clip 10/2018 Surgery/Intervention Pacemaker: Date: 07/2018 CABG: Date: 2010 2D DIMENSIONS Left Atrium(2D)5.2 (1.6-4.0cm)IVSd1.1 (0.7-1.1cm) Aortic Root(2D)2.9 (2.0-3.7cm)LVDd4.9 (3.9-5.9cm) LVOT Diameter2.0 (1.8-2.4cm)PWd1.1 (0.7-1.1cm) LVDs3.0 (2.5-4.0cm)FS (%) 38.8 % SV76.9 mlLVEF(%)60.0 (>50%) Aortic Valve AoV Peak Sathish.214.5cm/sAoV VTI38.8cm AO Peak GR.18.4mmHgLVOT VTI 22.47cm AO Mean GR.8mmHgAVA (VTI)1.90cm2 AI P 1/2 [id number] Mitral Valve MV E Figumtxw562.8cm/sMV E Peak Gr.23mmHg MV DECEL [id number] A Iwkupcfd287.5cm/s MV E Mean Gr.9mmHgE/A Ratio1.1 TDI Lateral E' P. V4.18cm/sMedial E' P. V5.92cm/s E/Lateral E'38.9E/Medial E'27.5 Tricuspid Valve TR P. Vczfvaqt472af/sRAP [id number] TR Peak Gr.01cxBfBFDT29aiNp Pulmonary Vein S1 Mqcdtmrh66.3cm/sS2 Aqaediif42.61cm/s D2 Vqlxicrm77.6cm/s LEFT VENTRICLE The left ventricle is normal size. There is normal left ventricular wall thickness. The left ventricu lar systolic function is normal and the ejection fraction is within normal range. The Ejection Fracti on is 55-60%. Apical motion consistent with pacemaker activation. Otherwise wnl RIGHT VENTRICLE The right ventricle is mildly to moderately dilated. The right ventricular systolic function is rossana l. There is a pacemaker lead in the right ventricle. ATRIA The left atrium is severely dilated. The right atrium size is normal. A pacemaker is seen in the righ t atrium consistent with history. The interatrial septum is intact with no evidence for an atrial sep nhung defect or patent foramen ovale as noted on 2-D or Doppler imaging. AORTIC VALVE The aortic valve is calcified and displays decreased opening but Doppler interrogation peak and mean valvues are within normal limits. Doppler and Color Flow revealed trace to mild aortic regurgitation. There is no significant aortic valvular stenosis. MITRAL VALVE There is a mitral valve clip noted. There is no evidence of mitral valve prolapse. Calculated mitral valve area is 1.2 cm2 with maximum pressure gradient of 23 mmHg and mean pressure gradient of 9 mmHg. Doppler and Color-flow revealed mild eccentric mitral regurgitation. TRICUSPID VALVE The tricuspid valve is normal in structure and function. Doppler and Color Flow revealed moderate tri cuspid regurgitation. There is moderate-severe pulmonary hypertension. The PA pressure was estimated at 66 mmHg. There is no tricuspid valve stenosis. PULMONIC VALVE The pulmonic valve is not well visualized. Doppler and Color Flow revealed no pulmonic valvular regur gitation. There is no pulmonic valvular stenosis. GREAT VESSELS The aortic root is normal in size. The ascending aorta is not well seen. The IVC is normal in size an d collapses >50% with inspiration. PERICARDIAL EFFUSION There is no evidence of significant pericardial effusion. Critical Notification Critical Value: No <Conclusion> The left ventricular systolic function is normal and the ejection fraction is within normal range. Th e Ejection Fraction is 55-60%. Apical motion consistent with pacemaker activation. Otherwise wnl The right ventricle is mildly to moderately dilated. There is a pacemaker lead in the right ventricle. There is a mitral valve clip noted. Calculated mitral valve area is 1.2 cm2 with maximum pressure gradient of 23 mmHg and mean pressure g radient of 9 mmHg. Doppler and Color Flow revealed moderate tricuspid regurgitation. There is moderate-severe pulmonary hypertension. The PA pressure was estimated at 66 mmHg. Signed by : Ramiro Aguirre, Electronically Approved : 05/26/2019 14:05:32
[2019-05-26 15:00] VITALS: BP 123/60
[2019-05-26] MEDS ORDERED: PHYTONADIONE 10 MG/ML AMPUL. SQ ONE (16:00)
--- NOTE | 2019-05-26 16:16 | NUR ---
SW following pt for dc planning. Chart reviewed and discussed with RN. Pt lives at home and has home health through [facility]. PT/OT pending. SW will await for PT/OT recommendation to assess skilled needs. Will continue to follow.
--- NOTE | 2019-05-26 17:12 | PDOC2 ---
GI CONSULT Reason For Consult: Possible GI bleed HPI: HPI: 89 y/o female admitted last night w/ Coumadin coagulopathy. Recent falls and left hip surgery, found w/ new compression fracture. GI consulted this evening due to concern for bleeding. Anemic since March (hip surgery), Hgb around baseline, no obvious bleeding including hematemesis, hematochezia, and melena. Hemoccult was positive, is iron deficient. No reflux/heartburn, dysphagia ("I eat slowly and take small bites"), n/v, abd pain, diarrhea, or constipation. Decreased appetite w/ some weight loss. Just not hungry. No previous EGD or colonoscopy. No GB, liver, pancreas, or PUD history. Not sure what pain pills she takes. Frustrated because she's been sitting here waiting (says for three days). Wants back in bed to get relief from right lower back pain. PMH: PMH: A Fib, CAD, HTN, HLD, valve insufficiency, SSS, peripheral neuropathy, OA, osteoporosis pacemaker, left hip ORIF, CABG (x5), mitral clip FH: Family History: No pertinent hx Social History: Smoke: No ALCOHOL: none Drugs: None ROS: GEN: Denies fevers, chills, sweats HEENT: Denies blurred vision, sore throat CV: Denies chest pain RESP: Denies shortness of air, cough GI: Per HPI : Denies hematuria, dysuria ENDO: +weight loss NEURO: Denies confusion, dizziness MSK: +back pain SKIN: Denies jaundice, pruritus Vitals: Vitals: Vital Signs Date Time Temp Pulse Resp B/P (MAP) Pulse Ox O2 Delivery O2 Flow Rate FiO2 05/26/19 15:00 98.0 71 16 123/60 (81) 94 Room Air 98.0 Labs: Labs: Laboratory Tests Test 05/25/19 21:10 05/26/19 07:30 05/26/19 07:38 Stool Occult Blood Positive (NEG) White Blood Count 3.5 x10^3/uL (4.0-11.0) Red Blood Count 2.85 x10^6/uL (3.50-5.40) Hemoglobin 7.8 g/dL (12.0-15.5) Hematocrit 24.9 % (36.0-47.0) Mean Corpuscular Volume 87 fL (79-100) Mean Corpuscular Hemoglobin 28 pg (25-35) Mean Corpuscular Hemoglobin Concent 31 g/dL (31-37) Red Cell Distribution Width 19.3 % (11.5-14.5) Platelet Count 174 x10^3/uL (140-400) Neutrophils (%) (Auto) 74 % (31-73) Lymphocytes (%) (Auto) 14 % (24-48) Monocytes (%) (Auto) 8 % (0-9) Eosinophils (%) (Auto) 3 % (0-3) Basophils (%) (Auto) 1 % (0-3) Neutrophils # (Auto) 2.5 x10^3/uL (1.8-7.7) Lymphocytes # (Auto) 0.5 x10^3/uL (1.0-4.8) Monocytes # (Auto) 0.3 x10^3/uL (0.0-1.1) Eosinophils # (Auto) 0.1 x10^3/uL (0.0-0.7) Basophils # (Auto) 0.0 x10^3/uL (0.0-0.2) Prothrombin Time 43.3 SEC (11.7-14.0) Prothromb Time International Ratio 4.5 (0.8-1.1) Sodium Level 144 mmol/L (136-145) Potassium Level 4.0 mmol/L (3.5-5.1) Chloride Level 109 mmol/L (98-107) Carbon Dioxide Level 28 mmol/L (21-32) Anion Gap 7 (6-14) Blood Urea Nitrogen 22 mg/dL (7-20) Creatinine 1.3 mg/dL (0.6-1.0) Estimated GFR (Cockcroft-Gault) 38.7 BUN/Creatinine Ratio 17 (6-20) Glucose Level 91 mg/dL (70-99) Calcium Level 8.0 mg/dL (8.5-10.1) Iron Level 24 ug/dL (50-170) Total Iron Binding Capacity 365 ug/dL (250-450) Iron Saturation 7 % (15-34) Total Bilirubin 0.8 mg/dL (0.2-1.0) Aspartate Amino Transf (AST/SGOT) 42 U/L (15-37) Alanine Aminotransferase (ALT/SGPT) 28 U/L (14-59) Alkaline Phosphatase 183 U/L (46-116) Total Protein 5.9 g/dL (6.4-8.2) Albumin 2.9 g/dL (3.4-5.0) Albumin/Globulin Ratio 1.0 (1.0-1.7) Vitamin B12 Level 1395 pg/mL (247-911) Allergies: Coded Allergies: Sulfa (Sulfonamide Antibiotics) (Verified Allergy, Intermediate, HIVES, 04/01/19) Medications: Current Medications Medications (Trade) Dose Ordered Sig/Jacob Route PRN Reason Start Time Stop Time Status Last Admin Dose Admin Amiodarone HCl (Cordarone) 200 mg DAILY PO 05/26/19 09:00 05/26/19 08:45 Aspirin (Children'S Aspirin) 81 mg DAILY PO 05/26/19 09:00 05/26/19 08:45 Acetaminophen/ Hydrocodone Bitart (Lortab 5/325) 1 tab PRN Q4HRS PRN PO MODERATE PAIN 05/25/19 19:30 05/26/19 08:45 Lisinopril (Prinivil) 10 mg DAILY PO 05/26/19 09:00 05/26/19 08:45 Pantoprazole Sodium (Protonix) 40 mg DAILYAC PO 05/26/19 07:30 05/26/19 08:45 Fentanyl Citrate (Fentanyl 2ml Vial) 25 mcg 1X ONCE IV 05/25/19 19:45 05/25/19 19:46 DC 05/25/19 19:46 Phytonadione (Mephyton Oral Soln) 5 mg 1X ONCE PO 05/25/19 20:15 05/25/19 20:16 DC 05/25/19 21:04 Vitamin D (Vitamin D3) 5,000 unit DAILY PO 05/26/19 09:00 05/26/19 08:45 Tizanidine HCl (Zanaflex) 2 mg 1X ONCE PO 05/25/19 23:55 05/25/19 23:57 DC 05/26/19 02:29 Lidocaine (Lidoderm) 1 patch DAILY TD 05/26/19 10:00 05/26/19 13:59 Imaging: Imaging: MRI IMPRESSION: 1. Compression deformity of the T12 vertebral body with greater than 50 percent height loss and retropulsion into the spinal canal measuring approximately 6 mm. This fracture is new when compared to the CT on 04/03/2019. 2. Subacute appearing vertically oriented fracture through the left sacral rock with likely involvement of the sacroiliac joint. PE: GEN: NAD, thin HEENT: Atraumatic, PERRL LUNGS: CTAB HEART: RRR +murm ABD: NABS, S/ND/NT EXTREMITY: No edema SKIN: No rashes, no jaundice NEURO/PSYCH: A & O �3 A/P: A/P: Coumadin coagulopathy Back pain, compression fracture, recent falls and recent hip surgery - IR following ELLA, hemoccult positive CRC screen - none Decreased appetite, weight loss -- INR still 4.5 w/o obvious bleeding, received vit K x 2 - per Dr. Ramires. Agree w/ PPI, note was also started on iron. She would consider 'scopes down the road when back issues better. DORIE HAN May 26, 2019 17:12
[2019-05-26] MEDS: EZETIMIBE 10 MG TABLET. PO SCH (18:41)
[2019-05-26 19:34] VITALS: BP 161/62
[2019-05-26] MEDS: IRON POLYSACCHARIDE COMPLEX 150 MG CAPSULE PO SCH (20:55)
[2019-05-26] MEDS: GABAPENTIN 100 MG CAPSULE. PO SCH (20:55)
[2019-05-26] MEDS: tiZANidine 4 MG TABLET. PO SCH (20:55)
[2019-05-26] MEDS: PATCH REMOVAL. MC SCH (20:58)
[2019-05-26 23:00] VITALS: BP 84/42
[2019-05-27 03:33] VITALS: BP 128/64
[2019-05-27 07:34] VITALS: BP 155/72
[2019-05-27 09:13] LABS: BASO % 1 % (0-3); EOS # 0.1 x10^3/uL (0.0-0.7); EOS % 2 % (0-3); HEMATOCRIT 28.3 % (36.0-47.0); HEMOGLOBIN 8.9 g/dL (12.0-15.5); LYMPH # 0.4 x10^3/uL (1.0-4.8); LYMPH % 9 % (24-48); MEAN CORPUSCULAR HEMOGLOBIN 27 pg (25-35); MEAN CORPUSCULAR HGB CONC 31 g/dL (31-37); MEAN CORPUSCULAR VOLUME 87 fL (79-100); MONO # 0.3 x10^3/uL (0.0-1.1); MONO % 8 % (0-9); NEUT # 3.1 x10^3/uL (1.8-7.7); NEUT % 80 % (31-73); PLATELET COUNT 153 x10^3/uL (140-400); RED BLOOD COUNT 3.24 x10^6/uL (3.50-5.40); WHITE BLOOD COUNT 3.8 x10^3/uL (4.0-11.0)
--- NOTE | 2019-05-27 09:16 | PDOC ---
PROGRESS NOTES Subjective Subjective She admits continued back pain. Objective Objective Vital Signs Date Time Temp Pulse Resp B/P (MAP) Pulse Ox O2 Delivery O2 Flow Rate FiO2 05/27/19 07:34 98.3 67 18 155/72 (99) 95 Room Air 98.3 Intake and Output 05/27/19 06:59 Intake Total 720 ml Balance 720 ml Intake Oral 720 ml # Voids 11 Physical Exam Physical Exam She is supine in bed and comfortable but continues with pain with rolling and in getting up and less pain with abdominal binder on.She still having more discomfort at left sacroiliac joint area and not much tenderness at T12 vertebra level. Assessment Assessment Problems Medical Problems: (1) Elevated INR Status: Acute (2) Sacral fracture Status: Acute (3) T12 compression fracture Status: Acute Plan Plan of Care I am not sure she needs T12 kyphoplasty.Await results of bone scan as thinks left sacral ala fracture might be old.To get her up as tolerated. Comment Review of Relevant I have reviewed the following items jaziel (where applicable) has been applied. Labs Laboratory Tests Test 05/25/19 16:10 05/25/19 16:30 05/25/19 21:10 05/26/19 07:30 White Blood Count 4.3 x10^3/uL (4.0-11.0) 3.5 x10^3/uL (4.0-11.0) Red Blood Count 3.18 x10^6/uL (3.50-5.40) 2.85 x10^6/uL (3.50-5.40) Hemoglobin 8.9 g/dL (12.0-15.5) 7.8 g/dL (12.0-15.5) Hematocrit 27.8 % (36.0-47.0) 24.9 % (36.0-47.0) Mean Corpuscular Volume 87 fL (79-100) 87 fL (79-100) Mean Corpuscular Hemoglobin 28 pg (25-35) 28 pg (25-35) Mean Corpuscular Hemoglobin Concent 32 g/dL (31-37) 31 g/dL (31-37) Red Cell Distribution Width 19.1 % (11.5-14.5) 19.3 % (11.5-14.5) Platelet Count 187 x10^3/uL (140-400) 174 x10^3/uL (140-400) Neutrophils (%) (Auto) 79 % (31-73) 74 % (31-73) Lymphocytes (%) (Auto) 10 % (24-48) 14 % (24-48) Monocytes (%) (Auto) 9 % (0-9) 8 % (0-9) Eosinophils (%) (Auto) 1 % (0-3) 3 % (0-3) Basophils (%) (Auto) 1 % (0-3) 1 % (0-3) Neutrophils # (Auto) 3.4 x10^3/uL (1.8-7.7) 2.5 x10^3/uL (1.8-7.7) Lymphocytes # (Auto) 0.4 x10^3/uL (1.0-4.8) 0.5 x10^3/uL (1.0-4.8) Monocytes # (Auto) 0.4 x10^3/uL (0.0-1.1) 0.3 x10^3/uL (0.0-1.1) Eosinophils # (Auto) 0.0 x10^3/uL (0.0-0.7) 0.1 x10^3/uL (0.0-0.7) Basophils # (Auto) 0.0 x10^3/uL (0.0-0.2) 0.0 x10^3/uL (0.0-0.2) Prothrombin Time 53.2 SEC (11.7-14.0) Prothromb Time International Ratio 5.9 (0.8-1.1) Activated Partial Thromboplast Time 55 SEC (24-38) Sodium Level 143 mmol/L (136-145) Potassium Level 4.3 mmol/L (3.5-5.1) Chloride Level 106 mmol/L (98-107) Carbon Dioxide Level 28 mmol/L (21-32) Anion Gap 9 (6-14) Blood Urea Nitrogen 28 mg/dL (7-20) Creatinine 1.7 mg/dL (0.6-1.0) Estimated GFR (Cockcroft-Gault) 28.4 BUN/Creatinine Ratio 16 (6-20) Glucose Level 99 mg/dL (70-99) Calcium Level 8.5 mg/dL (8.5-10.1) Total Bilirubin 0.8 mg/dL (0.2-1.0) Aspartate Amino Transf (AST/SGOT) 45 U/L (15-37) Alanine Aminotransferase (ALT/SGPT) 32 U/L (14-59) Alkaline Phosphatase 205 U/L (46-116) Total Protein 6.5 g/dL (6.4-8.2) Albumin 3.3 g/dL (3.4-5.0) Albumin/Globulin Ratio 1.0 (1.0-1.7) Urine Collection Type U cath Urine Color Yellow Urine Clarity Clear Urine pH 6.5 Urine Specific [place] 1.020 Urine Protein 30 mg/dL (NEG-TRACE) Urine Glucose (UA) Negative mg/dL (NEG) Urine Ketones (Stick) Negative mg/dL (NEG) Urine Blood Large (NEG) Urine Nitrite Negative (NEG) Urine Bilirubin Negative (NEG) Urine Urobilinogen Dipstick 0.2 mg/dL (0.2 mg/dL) Urine Leukocyte Esterase Negative (NEG) Urine RBC Tntc /HPF (0-2) Urine WBC 0 /HPF (0-4) Urine Bacteria 0 /HPF (0-FEW) Stool Occult Blood Positive (NEG) Test 05/26/19 07:38 Prothrombin Time 43.3 SEC (11.7-14.0) Prothromb Time International Ratio 4.5 (0.8-1.1) Sodium Level 144 mmol/L (136-145) Potassium Level 4.0 mmol/L (3.5-5.1) Chloride Level 109 mmol/L (98-107) Carbon Dioxide Level 28 mmol/L (21-32) Anion Gap 7 (6-14) Blood Urea Nitrogen 22 mg/dL (7-20) Creatinine 1.3 mg/dL (0.6-1.0) Estimated GFR (Cockcroft-Gault) 38.7 BUN/Creatinine Ratio 17 (6-20) Glucose Level 91 mg/dL (70-99) Calcium Level 8.0 mg/dL (8.5-10.1) Iron Level 24 ug/dL (50-170) Total Iron Binding Capacity 365 ug/dL (250-450) Iron Saturation 7 % (15-34) Total Bilirubin 0.8 mg/dL (0.2-1.0) Aspartate Amino Transf (AST/SGOT) 42 U/L (15-37) Alanine Aminotransferase (ALT/SGPT) 28 U/L (14-59) Alkaline Phosphatase 183 U/L (46-116) Total Protein 5.9 g/dL (6.4-8.2) Albumin 2.9 g/dL (3.4-5.0) Albumin/Globulin Ratio 1.0 (1.0-1.7) Vitamin B12 Level 1395 pg/mL (247-911) Medications Current Medications Acetaminophen (Tylenol) 1,000 mg 1X ONCE PO Last administered on 05/25/19 16:23; Start 05/25/19 at 16:00; Stop 05/25/19 at 16:01; Status DC Fentanyl Citrate (Fentanyl 2ml Vial) 25 mcg 1X ONCE IV Last administered on 05/25/19 16:23; Start 05/25/19 at 16:15; Stop 05/25/19 at 16:16; Status DC Amiodarone HCl (Cordarone) 200 mg DAILY PO Last administered on 05/26/19 08:45; Start 05/26/19 at 09:00 Aspirin (Children'S Aspirin) 81 mg DAILY PO Last administered on 05/26/19 08:45; Start 05/26/19 at 09:00 Bisacodyl (Dulcolax Supp) 10 mg PRN DAILY PRN [place] CONSTIPATION; Start 05/25/19 at 19:30 Cyclobenzaprine HCl (Flexeril) 5 mg PRN Q12HR PRN PO MUSCLE SPASMS; Start 05/25/19 at 19:30 EZETIMIBE (Zetia) 10 mg QEVNG PO Last administered on 05/26/19 18:41; Start 05/26/19 at 18:00 Gabapentin (Neurontin) 100 mg HS PO Last administered on 05/26/19 20:56; Start 05/25/19 at 21:00 Acetaminophen/ Hydrocodone Bitart (Lortab 5/325) 1 tab PRN Q4HRS PRN PO MODERATE PAIN Last administered on 05/26/19 20:56; Start 05/25/19 at 19:30 Lisinopril (Prinivil) 10 mg DAILY PO Last administered on 05/26/19 08:45; Start 05/26/19 at 09:00 Pantoprazole Sodium (Protonix) 40 mg DAILYAC PO Last administered on 05/26/19 08:45; Start 05/26/19 at 07:30 Fentanyl Citrate (Fentanyl 2ml Vial) 25 mcg 1X ONCE IV Last administered on 19:46; Start 05/25/19 at 19:45; Stop 05/25/19 at 19:46; Status DC Phytonadione (Mephyton Oral Soln) 5 mg 1X ONCE PO Last administered on 05/25/19 21:04; Start 05/25/19 at 20:15; Stop 05/25/19 at 20:16; Status DC Vitamin D (Vitamin D3) 5,000 unit DAILY PO Last administered on 05/26/19 08:45; Start 05/26/19 at 09:00 Tizanidine HCl (Zanaflex) 2 mg HS PO Last administered on 05/26/19 20:56; Start 05/26/19 at 21:00 Tizanidine HCl (Zanaflex) 2 mg 1X ONCE PO Last administered on 05/26/19 02:29 ; Start 05/25/19 at 23:55; Stop 05/25/19 at 23:57; Status DC Polysaccharide Iron Complex (Niferex 150) 150 mg BID PO Last administered on 05/26/19 20:56; Start 05/26/19 at 21:00 Lidocaine (Lidoderm) 1 patch DAILY TD Last administered on 05/26/19 13:59; Start 05/26/19 at 10:00 Miscellaneous (Lidoderm Patch Removal) 1 ea QHS MC Last administered on 05/26/19 20:58; Start 05/26/19 at 21:00 Phytonadione (Vitamin K Ampule) 5 mg 1X ONCE SQ Last administered on 05/26/19 17:20; Start 05/26/19 at 16:00; Stop 05/26/19 at 16:01; Status DC Active Scripts Active [Pantoprazole] 40 MG Tablet.dr 40 Mg PO DAILYAC 30 Days Bisacodyl 10 Mg Supp.rect 10 Mg [place] PRN DAILY PRN 14 Days Hydrocodone-Apap 5-325 (Hydrocodone Bit/Acetaminophen) 1 Tab Tablet 1 Tab PO PRN Q4HRS PRN 14 Days Cyclobenzaprine Hcl 10 Mg Tablet 5 Mg PO PRN Q12HR PRN 7 Days Reported Tizanidine Hcl 2 Mg Capsule 2 Mg PO HS Warfarin Sodium 2.5 Mg Tablet 2.5 Mg PO CONT PRN Amiodarone Hcl 200 Mg Tablet 1 Tab PO DAILY Aspirin 81 Mg Tab.chew 1 Tab PO DAILY Lisinopril 10 Mg Tablet 1 Tab PO DAILY Zetia (Ezetimibe) 10 Mg Tablet 10 Mg PO QEVNG Multivitamins (Multivitamin) 1 Each Tablet 1 Tab PO DAILY Calcium 600 + Vit D 200 Tablet (Calcium Carbonate/Vitamin D3) 1 Each Tablet 1 Each PO QEVNG Gabapentin (Gabapentin) 100 Mg Capsule 100 Mg PO HS Vitals/I & O Vital Sign - Last 24 Hours 05/26/19 05/26/19 05/26/19 05/26/19 10:42 11:00 15:00 19:34 Temp 98.0 98.0 98.0 98.0 98.0 98.0 Pulse 68 71 69 Resp 16 16 18 B/P (MAP) 134/54 (80) 123/60 (81) 161/62 (95) Pulse Ox 95 94 96 O2 Delivery Room Air Room Air Room Air Room Air 05/26/19 05/26/19 05/26/19 05/26/19 20:00 20:56 23:00 23:04 Pulse 56 Resp 19 18 18 B/P (MAP) 84/42 (56) Pulse Ox 96 96 O2 Delivery Room Air Room Air Room Air 05/27/19 05/27/19 03:33 07:34 Temp 97.9 98.3 97.9 98.3 Pulse 67 67 Resp 18 B/P (MAP) 128/64 (85) 155/72 (99) Pulse Ox 97 95 O2 Delivery Room Air Room Air Intake and Output 05/26/19 05/26/19 05/27/19 14:59 22:59 06:59 Intake Total 300 ml 420 ml Balance 300 ml 420 ml Nutrition Consultation Dietary Evaluation: Recommendations by RD: Increase Calorie Intake, Protein supplementation Comments: REC regular diet with chocolate ensure tid Expected Outcomes/Goals: to meet > 75% est nutr needs Malnutrition Findings: Muscle Mass (Severe): Severe Depletion Body Fat Depletion (Non Severe: Mod to Severe Weight Status: Underweight MARIELENA RODRIGUEZ MD May 27, 2019 09:16
--- NOTE | 2019-05-27 09:22 | PDOC2 ---
YOLY VELASQUEZ Linda SINGH 05/27/19 0922: UROLOGY CONSULT Date of Consult Date of Consult DATE: 05/27/19 TIME: 09: Source Source: Caregiver (Spoke with Dr. Quijano ), Chart review, Patient History of Present Illness Reason for Visit: Patient was admitted for falls and pain to her lower back. Today her pain is iproved an the tentative plan is for discharge tomorrow. Urology was consulted for blood in the urine, but the patient has never seen the blood. She also denies dysuria, or difficulty emptying her bladder. She has never had kidney stones or seen a Urologist to her knowledge for any reason. Today her pain is in the center of her lower back and does not radiate to the front. Past Medical History Cardiovascular: AFIB, CAD, HTN, Hyperlipidemia, Valve insufficiency, Other (SSS) CENTRAL NERVOUS SYSTEM: Periperal neuropathy GI: No pertinent hx Heme/Onc: No pertinent hx Psych: No pertinent hx Musculoskeletal: Osteoarthritis Rheumatologic: Other Infectious disease: No pertinent hx Endocrine: Osteoporosis Past Surgical History Past Surgical History: Pacemaker (Biotronik), Arthroscopy (left ORIF 04/02/2019), CABG (x5), Other (Mitral clip 10/2018) Family History Family History: Heart Disease (father) Social History No ALCOHOL: none Drugs: None Lives: with Family Current Problem List Problems: (1) Hematuria Current Medications Current Medications Current Medications EZETIMIBE (Zetia) 10 mg QEVNG PO Last administered on 05/26/19at 18:41; Start 05/26/19 at 18:00 Lidocaine (Lidoderm) 1 patch DAILY TD Last administered on 05/26/19at 13:59; Start 05/26/19 at 10:00 Miscellaneous (Lidoderm Patch Removal) 1 ea QHS MC Last administered on 05/26/19at 20:58; Start 05/26/19 at 21:00 Phytonadione (Vitamin K Ampule) 5 mg 1X ONCE SQ Last administered on 05/26/19at 17:20; Start 05/26/19 at 16:00; Stop 05/26/19 at 16:01; Status DC Polysaccharide Iron Complex (Niferex 150) 150 mg BID PO Last administered on 05/26/19at 20:56; Start 05/26/19 at 21:00 Tizanidine HCl (Zanaflex) 2 mg HS PO Last administered on 05/26/19at 20:56; Start 05/26/19 at 21:00 Allergies Allergies: Coded Allergies: Sulfa (Sulfonamide Antibiotics) (Verified Allergy, Intermediate, HIVES, 04/01/19) ROS Review Of Systems: CONSTITUTIONAL: No fever or chills EYES: No recent changes SKIN: No rash or itching CARDIOVASCULAR: No chest pain, syncope, palpitations, or edema RESPIRATORY: No SOB or cough GASTROINTESTINAL: No nausea, vomiting or abdominal pain NEUROLOGICAL: No headaches or weakness ENDOCRINE: No cold or heat intolerance GENITOURINARY: No urgency or frequency of urination MUSCULOSKELETAL: + back pain, chronic LYMPHATICS: No enlarged lymph nodes PSYCHIATRIC: No anxiety or depression Physical Exam Physical Exam: General: Pleasant, no acute distress, well groomed Eyes: conjunctiva anicteric, eyes full range of motion ENT: moist oral mucosa, normal dentition Neck: Trachea midline, no masses Back: No flank pain, some tenderness over the lower spine. Respiratory: unlabored breathing, not using accessory muscles, Abdomen: nontender, nondistended, no hepatosplenomegaly, no masses Skin: no rashes or skin lesions on visualized skin Psych: normal mood, affect. Alert and oriented x 3. Vitals VITALS Vital Signs Date Time Temp Pulse Resp B/P (MAP) Pulse Ox O2 Delivery O2 Flow Rate FiO2 05/27/19 07:34 98.3 67 18 155/72 (99) 95 Room Air 98.3 Labs Labs Laboratory Tests Test 05/25/19 16:10 05/25/19 16:30 05/25/19 21:10 05/26/19 07:30 White Blood Count 4.3 x10^3/uL (4.0-11.0) 3.5 x10^3/uL (4.0-11.0) Red Blood Count 3.18 x10^6/uL (3.50-5.40) 2.85 x10^6/uL (3.50-5.40) Hemoglobin 8.9 g/dL (12.0-15.5) 7.8 g/dL (12.0-15.5) Hematocrit 27.8 % (36.0-47.0) 24.9 % (36.0-47.0) Mean Corpuscular Volume 87 fL (79-100) 87 fL (79-100) Mean Corpuscular Hemoglobin 28 pg (25-35) 28 pg (25-35) Mean Corpuscular Hemoglobin Concent 32 g/dL (31-37) 31 g/dL (31-37) Red Cell Distribution Width 19.1 % (11.5-14.5) 19.3 % (11.5-14.5) Platelet Count 187 x10^3/uL (140-400) 174 x10^3/uL (140-400) Neutrophils (%) (Auto) 79 % (31-73) 74 % (31-73) Lymphocytes (%) (Auto) 10 % (24-48) 14 % (24-48) Monocytes (%) (Auto) 9 % (0-9) 8 % (0-9) Eosinophils (%) (Auto) 1 % (0-3) 3 % (0-3) Basophils (%) (Auto) 1 % (0-3) 1 % (0-3) Neutrophils # (Auto) 3.4 x10^3/uL (1.8-7.7) 2.5 x10^3/uL (1.8-7.7) Lymphocytes # (Auto) 0.4 x10^3/uL (1.0-4.8) 0.5 x10^3/uL (1.0-4.8) Monocytes # (Auto) 0.4 x10^3/uL (0.0-1.1) 0.3 x10^3/uL (0.0-1.1) Eosinophils # (Auto) 0.0 x10^3/uL (0.0-0.7) 0.1 x10^3/uL (0.0-0.7) Basophils # (Auto) 0.0 x10^3/uL (0.0-0.2) 0.0 x10^3/uL (0.0-0.2) Prothrombin Time 53.2 SEC (11.7-14.0) Prothromb Time International Ratio 5.9 (0.8-1.1) Activated Partial Thromboplast Time 55 SEC (24-38) Sodium Level 143 mmol/L (136-145) Potassium Level 4.3 mmol/L (3.5-5.1) Chloride Level 106 mmol/L (98-107) Carbon Dioxide Level 28 mmol/L (21-32) Anion Gap 9 (6-14) Blood Urea Nitrogen 28 mg/dL (7-20) Creatinine 1.7 mg/dL (0.6-1.0) Estimated GFR (Cockcroft-Gault) 28.4 BUN/Creatinine Ratio 16 (6-20) Glucose Level 99 mg/dL (70-99) Calcium Level 8.5 mg/dL (8.5-10.1) Total Bilirubin 0.8 mg/dL (0.2-1.0) Aspartate Amino Transf (AST/SGOT) 45 U/L (15-37) Alanine Aminotransferase (ALT/SGPT) 32 U/L (14-59) Alkaline Phosphatase 205 U/L (46-116) Total Protein 6.5 g/dL (6.4-8.2) Albumin 3.3 g/dL (3.4-5.0) Albumin/Globulin Ratio 1.0 (1.0-1.7) Urine Collection Type U cath Urine Color Yellow Urine Clarity Clear Urine pH 6.5 Urine Specific [place] 1.020 Urine Protein 30 mg/dL (NEG-TRACE) Urine Glucose (UA) Negative mg/dL (NEG) Urine Ketones (Stick) Negative mg/dL (NEG) Urine Blood Large (NEG) Urine Nitrite Negative (NEG) Urine Bilirubin Negative (NEG) Urine Urobilinogen Dipstick 0.2 mg/dL (0.2 mg/dL) Urine Leukocyte Esterase Negative (NEG) Urine RBC Tntc /HPF (0-2) Urine WBC 0 /HPF (0-4) Urine Bacteria 0 /HPF (0-FEW) Stool Occult Blood Positive (NEG) Test 05/26/19 07:38 Prothrombin Time 43.3 SEC (11.7-14.0) Prothromb Time International Ratio 4.5 (0.8-1.1) Sodium Level 144 mmol/L (136-145) Potassium Level 4.0 mmol/L (3.5-5.1) Chloride Level 109 mmol/L (98-107) Carbon Dioxide Level 28 mmol/L (21-32) Anion Gap 7 (6-14) Blood Urea Nitrogen 22 mg/dL (7-20) Creatinine 1.3 mg/dL (0.6-1.0) Estimated GFR (Cockcroft-Gault) 38.7 BUN/Creatinine Ratio 17 (6-20) Glucose Level 91 mg/dL (70-99) Calcium Level 8.0 mg/dL (8.5-10.1) Iron Level 24 ug/dL (50-170) Total Iron Binding Capacity 365 ug/dL (250-450) Iron Saturation 7 % (15-34) Total Bilirubin 0.8 mg/dL (0.2-1.0) Aspartate Amino Transf (AST/SGOT) 42 U/L (15-37) Alanine Aminotransferase (ALT/SGPT) 28 U/L (14-59) Alkaline Phosphatase 183 U/L (46-116) Total Protein 5.9 g/dL (6.4-8.2) Albumin 2.9 g/dL (3.4-5.0) Albumin/Globulin Ratio 1.0 (1.0-1.7) Vitamin B12 Level 1395 pg/mL (247-911) Assessment/Plan Assessment/Plan Micro hematuria-Asymptomatic Creatinine lab tomorrow. Hematuria workup consists of CTU with cystoscopy. Will check with PCP to see if she is going home tomorrow and proceed from there. Hematuria workup can be done as an outpatient ZHANNA ZEPEDA MD 05/27/19 1634: UROLOGY CONSULT Assessment/Plan Assessment/Plan agree w above YOLY VELASQUEZ APRN May 27, 2019 09:22 ZHANNA ZEPEDA MD May 27, 2019 16:34
[2019-05-27 09:23] LABS: PROTHROMBIN TIME PATIENT 25.4 SEC (11.7-14.0)
[2019-05-27 09:25] LABS: CALCIUM 8.5 mg/dL (8.5-10.1); CREATININE 1.4 mg/dL (0.6-1.0); GFR 35.6; POTASSIUM 3.8 mmol/L (3.5-5.1)
--- NOTE | 2019-05-27 09:39 | PDOC ---
PROGRESS NOTES History of Present Illness History of Present Illness VTE Prophylaxis Ordered VTE Prophylaxis Devices: Yes VTE Pharmacological Prophylaxi: Yes Assessment/Plan Assessment/Plan supratherapeutic INR, will give PO vit K, as she has T12 compression fracture and may benefit from vertebroplasty weakness and debility, Pt and OT, consult physiatry, recent mitral valve repair, she requested Dr. Mckenzie consulted Teresa Ramírez, recent surg for fractured hip CKD4 Small bilateral pleural effusions with mild underlying bilateral lower lobe atelectasis.. Bilateral pulmonary scarring. anemia of CKD heme pos stool x [address] Compression deformity of the T12 vertebral body with greater than 50 percent height loss and retropulsion into the spinal canal measuring approximately 6 mm. This fracture is new when compared to the CT on 04/03/2019. Subacute appearing vertically oriented fracture through the left sacral rock with likely involvement of the sacroiliac joint. T12 appears relatively acute. There is a high grade of compression with a nearly vertebrae plana configuration. The Left sacral fracture appears sub acute to chronic with associated sclerosis. INR supratheraputic. , improved to 2.5 05/31 plan treat lesions based on severity of pain when inr normalizes. consider bone scan (patient has pacer) of the pelvis to assess possibility of occult right sacral fracture vit k 5 mg sq x 1 05/26 gi consult abd sono, pelvic sono 36 min pt exam, chart review, > 50% of time spent with exam, chart review, pt care coordination Vitals Vitals Vital Signs Date Time Temp Pulse Resp B/P (MAP) Pulse Ox O2 Delivery O2 Flow Rate FiO2 05/27/19 07:34 98.3 67 18 155/72 (99) 95 Room Air 98.3 Physical Exam General: Alert, Oriented X3, Cooperative, No acute distress Heart: Regular rate (SR with occasional V and atrial pacing), Other (5/6 holosystolic apical murmur) Lungs: Clear Abdomen: Normal bowel sounds, Soft, No tenderness Extremities: No clubbing, No cyanosis, No edema, Other (trace LE edema) Skin: No breakdown, No significant lesion Labs LABS Laboratory Tests Test 05/27/19 08:50 White Blood Count 3.8 x10^3/uL (4.0-11.0) Red Blood Count 3.24 x10^6/uL (3.50-5.40) Hemoglobin 8.9 g/dL (12.0-15.5) Hematocrit 28.3 % (36.0-47.0) Mean Corpuscular Volume 87 fL (79-100) Mean Corpuscular Hemoglobin 27 pg (25-35) Mean Corpuscular Hemoglobin Concent 31 g/dL (31-37) Red Cell Distribution Width 19.0 % (11.5-14.5) Platelet Count 153 x10^3/uL (140-400) Neutrophils (%) (Auto) 80 % (31-73) Lymphocytes (%) (Auto) 9 % (24-48) Monocytes (%) (Auto) 8 % (0-9) Eosinophils (%) (Auto) 2 % (0-3) Basophils (%) (Auto) 1 % (0-3) Neutrophils # (Auto) 3.1 x10^3/uL (1.8-7.7) Lymphocytes # (Auto) 0.4 x10^3/uL (1.0-4.8) Monocytes # (Auto) 0.3 x10^3/uL (0.0-1.1) Eosinophils # (Auto) 0.1 x10^3/uL (0.0-0.7) Basophils # (Auto) 0.0 x10^3/uL (0.0-0.2) Prothrombin Time 25.4 SEC (11.7-14.0) Prothromb Time International Ratio 2.3 (0.8-1.1) Sodium Level 145 mmol/L (136-145) Potassium Level 3.8 mmol/L (3.5-5.1) Chloride Level 108 mmol/L (98-107) Carbon Dioxide Level 28 mmol/L (21-32) Anion Gap 9 (6-14) Blood Urea Nitrogen 23 mg/dL (7-20) Creatinine 1.4 mg/dL (0.6-1.0) Estimated GFR (Cockcroft-Gault) 35.6 Glucose Level 99 mg/dL (70-99) Calcium Level 8.5 mg/dL (8.5-10.1) Assessment and Plan Assessmemt and Plan Problems Medical Problems: (1) Elevated INR Status: Acute (2) Sacral fracture Status: Acute (3) T12 compression fracture Status: Acute Comment Review of Relevant I have reviewed the following items jaziel (where applicable) has been applied. Labs Laboratory Tests Test 05/25/19 16:10 05/25/19 16:30 05/25/19 21:10 05/26/19 07:30 White Blood Count 4.3 x10^3/uL (4.0-11.0) 3.5 x10^3/uL (4.0-11.0) Red Blood Count 3.18 x10^6/uL (3.50-5.40) 2.85 x10^6/uL (3.50-5.40) Hemoglobin 8.9 g/dL (12.0-15.5) 7.8 g/dL (12.0-15.5) Hematocrit 27.8 % (36.0-47.0) 24.9 % (36.0-47.0) Mean Corpuscular Volume 87 fL (79-100) 87 fL (79-100) Mean Corpuscular Hemoglobin 28 pg (25-35) 28 pg (25-35) Mean Corpuscular Hemoglobin Concent 32 g/dL (31-37) 31 g/dL (31-37) Red Cell Distribution Width 19.1 % (11.5-14.5) 19.3 % (11.5-14.5) Platelet Count 187 x10^3/uL (140-400) 174 x10^3/uL (140-400) Neutrophils (%) (Auto) 79 % (31-73) 74 % (31-73) Lymphocytes (%) (Auto) 10 % (24-48) 14 % (24-48) Monocytes (%) (Auto) 9 % (0-9) 8 % (0-9) Eosinophils (%) (Auto) 1 % (0-3) 3 % (0-3) Basophils (%) (Auto) 1 % (0-3) 1 % (0-3) Neutrophils # (Auto) 3.4 x10^3/uL (1.8-7.7) 2.5 x10^3/uL (1.8-7.7) Lymphocytes # (Auto) 0.4 x10^3/uL (1.0-4.8) 0.5 x10^3/uL (1.0-4.8) Monocytes # (Auto) 0.4 x10^3/uL (0.0-1.1) 0.3 x10^3/uL (0.0-1.1) Eosinophils # (Auto) 0.0 x10^3/uL (0.0-0.7) 0.1 x10^3/uL (0.0-0.7) Basophils # (Auto) 0.0 x10^3/uL (0.0-0.2) 0.0 x10^3/uL (0.0-0.2) Prothrombin Time 53.2 SEC (11.7-14.0) Prothromb Time International Ratio 5.9 (0.8-1.1) Activated Partial Thromboplast Time 55 SEC (24-38) Sodium Level 143 mmol/L (136-145) Potassium Level 4.3 mmol/L (3.5-5.1) Chloride Level 106 mmol/L (98-107) Carbon Dioxide Level 28 mmol/L (21-32) Anion Gap 9 (6-14) Blood Urea Nitrogen 28 mg/dL (7-20) Creatinine 1.7 mg/dL (0.6-1.0) Estimated GFR (Cockcroft-Gault) 28.4 BUN/Creatinine Ratio 16 (6-20) Glucose Level 99 mg/dL (70-99) Calcium Level 8.5 mg/dL (8.5-10.1) Total Bilirubin 0.8 mg/dL (0.2-1.0) Aspartate Amino Transf (AST/SGOT) 45 U/L (15-37) Alanine Aminotransferase (ALT/SGPT) 32 U/L (14-59) Alkaline Phosphatase 205 U/L (46-116) Total Protein 6.5 g/dL (6.4-8.2) Albumin 3.3 g/dL (3.4-5.0) Albumin/Globulin Ratio 1.0 (1.0-1.7) Urine Collection Type U cath Urine Color Yellow Urine Clarity Clear Urine pH 6.5 Urine Specific [place] 1.020 Urine Protein 30 mg/dL (NEG-TRACE) Urine Glucose (UA) Negative mg/dL (NEG) Urine Ketones (Stick) Negative mg/dL (NEG) Urine Blood Large (NEG) Urine Nitrite Negative (NEG) Urine Bilirubin Negative (NEG) Urine Urobilinogen Dipstick 0.2 mg/dL (0.2 mg/dL) Urine Leukocyte Esterase Negative (NEG) Urine RBC Tntc /HPF (0-2) Urine WBC 0 /HPF (0-4) Urine Bacteria 0 /HPF (0-FEW) Stool Occult Blood Positive (NEG) Test 05/26/19 07:38 05/27/19 08:50 Prothrombin Time 43.3 SEC (11.7-14.0) 25.4 SEC (11.7-14.0) Prothromb Time International Ratio 4.5 (0.8-1.1) 2.3 (0.8-1.1) Sodium Level 144 mmol/L (136-145) 145 mmol/L (136-145) Potassium Level 4.0 mmol/L (3.5-5.1) 3.8 mmol/L (3.5-5.1) Chloride Level 109 mmol/L (98-107) 108 mmol/L (98-107) Carbon Dioxide Level 28 mmol/L (21-32) 28 mmol/L (21-32) Anion Gap 7 (6-14) 9 (6-14) Blood Urea Nitrogen 22 mg/dL (7-20) 23 mg/dL (7-20) Creatinine 1.3 mg/dL (0.6-1.0) 1.4 mg/dL (0.6-1.0) Estimated GFR (Cockcroft-Gault) 38.7 35.6 BUN/Creatinine Ratio 17 (6-20) Glucose Level 91 mg/dL (70-99) 99 mg/dL (70-99) Calcium Level 8.0 mg/dL (8.5-10.1) 8.5 mg/dL (8.5-10.1) Iron Level 24 ug/dL (50-170) Total Iron Binding Capacity 365 ug/dL (250-450) Iron Saturation 7 % (15-34) Total Bilirubin 0.8 mg/dL (0.2-1.0) Aspartate Amino Transf (AST/SGOT) 42 U/L (15-37) Alanine Aminotransferase (ALT/SGPT) 28 U/L (14-59) Alkaline Phosphatase 183 U/L (46-116) Total Protein 5.9 g/dL (6.4-8.2) Albumin 2.9 g/dL (3.4-5.0) Albumin/Globulin Ratio 1.0 (1.0-1.7) Vitamin B12 Level 1395 pg/mL (247-911) White Blood Count 3.8 x10^3/uL (4.0-11.0) Red Blood Count 3.24 x10^6/uL (3.50-5.40) Hemoglobin 8.9 g/dL (12.0-15.5) Hematocrit 28.3 % (36.0-47.0) Mean Corpuscular Volume 87 fL (79-100) Mean Corpuscular Hemoglobin 27 pg (25-35) Mean Corpuscular Hemoglobin Concent 31 g/dL (31-37) Red Cell Distribution Width 19.0 % (11.5-14.5) Platelet Count 153 x10^3/uL (140-400) Neutrophils (%) (Auto) 80 % (31-73) Lymphocytes (%) (Auto) 9 % (24-48) Monocytes (%) (Auto) 8 % (0-9) Eosinophils (%) (Auto) 2 % (0-3) Basophils (%) (Auto) 1 % (0-3) Neutrophils # (Auto) 3.1 x10^3/uL (1.8-7.7) Lymphocytes # (Auto) 0.4 x10^3/uL (1.0-4.8) Monocytes # (Auto) 0.3 x10^3/uL (0.0-1.1) Eosinophils # (Auto) 0.1 x10^3/uL (0.0-0.7) Basophils # (Auto) 0.0 x10^3/uL (0.0-0.2) Laboratory Tests Test 05/27/19 08:50 White Blood Count 3.8 x10^3/uL (4.0-11.0) Red Blood Count 3.24 x10^6/uL (3.50-5.40) Hemoglobin 8.9 g/dL (12.0-15.5) Hematocrit 28.3 % (36.0-47.0) Mean Corpuscular Volume 87 fL (79-100) Mean Corpuscular Hemoglobin 27 pg (25-35) Mean Corpuscular Hemoglobin Concent 31 g/dL (31-37) Red Cell Distribution Width 19.0 % (11.5-14.5) Platelet Count 153 x10^3/uL (140-400) Neutrophils (%) (Auto) 80 % (31-73) Lymphocytes (%) (Auto) 9 % (24-48) Monocytes (%) (Auto) 8 % (0-9) Eosinophils (%) (Auto) 2 % (0-3) Basophils (%) (Auto) 1 % (0-3) Neutrophils # (Auto) 3.1 x10^3/uL (1.8-7.7) Lymphocytes # (Auto) 0.4 x10^3/uL (1.0-4.8) Monocytes # (Auto) 0.3 x10^3/uL (0.0-1.1) Eosinophils # (Auto) 0.1 x10^3/uL (0.0-0.7) Basophils # (Auto) 0.0 x10^3/uL (0.0-0.2) Prothrombin Time 25.4 SEC (11.7-14.0) Prothromb Time International Ratio 2.3 (0.8-1.1) Sodium Level 145 mmol/L (136-145) Potassium Level 3.8 mmol/L (3.5-5.1) Chloride Level 108 mmol/L (98-107) Carbon Dioxide Level 28 mmol/L (21-32) Anion Gap 9 (6-14) Blood Urea Nitrogen 23 mg/dL (7-20) Creatinine 1.4 mg/dL (0.6-1.0) Estimated GFR (Cockcroft-Gault) 35.6 Glucose Level 99 mg/dL (70-99) Calcium Level 8.5 mg/dL (8.5-10.1) Medications Current Medications Acetaminophen (Tylenol) 1,000 mg 1X ONCE PO Last administered on 05/25/19at 16:23; Start 05/25/19 at 16:00; Stop 05/25/19 at 16:01; Status DC Fentanyl Citrate (Fentanyl 2ml Vial) 25 mcg 1X ONCE IV Last administered on 05/25/19at 16:23; Start 05/25/19 at 16:15; Stop 05/25/19 at 16:16; Status DC Amiodarone HCl (Cordarone) 200 mg DAILY PO Last administered on 05/26/19at 0 8:45; Start 05/26/19 at 09:00 Aspirin (Children'S Aspirin) 81 mg DAILY PO Last administered on 05/26/19 08:45; Start 05/26/19 at 09:00 Bisacodyl (Dulcolax Supp) 10 mg PRN DAILY PRN [place] CONSTIPATION; Start 05/25/19 at 19:30 Cyclobenzaprine HCl (Flexeril) 5 mg PRN Q12HR PRN PO MUSCLE SPASMS; Start 05/25/19 at 19:30 EZETIMIBE (Zetia) 10 mg QEVNG PO Last administered on 05/26/19 18:41; Start 05/26/19 at 18:00 Gabapentin (Neurontin) 100 mg HS PO Last administered on 05/26/19 20:56; Start 05/25/19 at 21:00 Acetaminophen/ Hydrocodone Bitart (Lortab 5/325) 1 tab PRN Q4HRS PRN PO MODERATE PAIN Last administered on 05/26/19 20:56; Start 05/25/19 at 19:30 Lisinopril (Prinivil) 10 mg DAILY PO Last administered on 05/26/19 08:45; Start 05/26/19 at 09:00 Pantoprazole Sodium (Protonix) 40 mg DAILYAC PO Last administered on 05/26/19 08:45; Start 05/26/19 at 07:30 Fentanyl Citrate (Fentanyl 2ml Vial) 25 mcg 1X ONCE IV Last administered on 05/25/19 19:46; Start 05/25/19 at 19:45; Stop 05/25/19 at 19:46; Status DC Phytonadione (Mephyton Oral Soln) 5 mg 1X ONCE PO Last administered on 05/25/19 21:04; Start 05/25/19 at 20:15; Stop 05/25/19 at 20:16; Status DC Vitamin D (Vitamin D3) 5,000 unit DAILY PO Last administered on 05/26/19 08:45; Start 05/26/19 at 09:00 Tizanidine HCl (Zanaflex) 2 mg HS PO Last administered on 05/26/19 20:56; Start 05/26/19 at 21:00 Tizanidine HCl (Zanaflex) 2 mg 1X ONCE PO Last administered on 05/26/19 02:29; Start 05/25/19 at 23:55; Stop 05/25/19 at 23:57; Status DC Polysaccharide Iron Complex (Niferex 150) 150 mg BID PO Last administered on 05/26/19at 20:56; Start 05/26/19 at 21:00 Lidocaine (Lidoderm) 1 patch DAILY TD Last administered on 05/26/19at 13:59; Start 05/26/19 at 10:00 Miscellaneous (Lidoderm Patch Removal) 1 ea QHS MC Last administered on 05/26/19at 20:58; Start 05/26/19 at 21:00 Phytonadione (Vitamin K Ampule) 5 mg 1X ONCE SQ Last administered on 05/26/19at 17:20; Start 05/26/19 at 16:00; Stop 05/26/19 at 16:01; Status DC Active Scripts Active [Pantoprazole] 40 MG Tablet.dr 40 Mg PO DAILYAC 30 Days Bisacodyl 10 Mg Supp.rect 10 Mg [place] PRN DAILY PRN 14 Days Hydrocodone-Apap 5-325 (Hydrocodone Bit/Acetaminophen) 1 Tab Tablet 1 Tab PO PRN Q4HRS PRN 14 Days Cyclobenzaprine Hcl 10 Mg Tablet 5 Mg PO PRN Q12HR PRN 7 Days Reported Tizanidine Hcl 2 Mg Capsule 2 Mg PO HS Warfarin Sodium 2.5 Mg Tablet 2.5 Mg PO CONT PRN Amiodarone Hcl 200 Mg Tablet 1 Tab PO DAILY Aspirin 81 Mg Tab.chew 1 Tab PO DAILY Lisinopril 10 Mg Tablet 1 Tab PO DAILY Zetia (Ezetimibe) 10 Mg Tablet 10 Mg PO QEVNG Multivitamins (Multivitamin) 1 Each Tablet 1 Tab PO DAILY Calcium 600 + Vit D 200 Tablet (Calcium Carbonate/Vitamin D3) 1 Each Tablet 1 Each PO QEVNG Gabapentin (Gabapentin) 100 Mg Capsule 100 Mg PO HS Vitals/I & O Vital Sign - Last 24 Hours 05/26/19 05/26/19 05/26/19 05/26/19 10:42 11:00 15:00 19:34 Temp 98.0 98.0 98.0 98.0 98.0 98.0 Pulse 68 71 69 Resp 16 16 18 B/P (MAP) 134/54 (80) 123/60 (81) 161/62 (95) Pulse Ox 95 94 96 O2 Delivery Room Air Room Air Room Air Room Air 05/26/19 05/26/19 05/26/19 05/26/19 20:00 20:56 23:00 23:04 Pulse 56 Resp 19 18 18 B/P (MAP) 84/42 (56) Pulse Ox 96 96 O2 Delivery Room Air Room Air Room Air 05/27/19 05/27/19 03:33 07:34 Temp 97.9 98.3 97.9 98.3 Pulse 67 67 Resp 18 B/P (MAP) 128/64 (85) 155/72 (99) Pulse Ox 97 95 O2 Delivery Room Air Room Air Intake and Output 05/26/19 05/26/19 05/27/19 14:59 22:59 06:59 Intake Total 300 ml 420 ml Balance 300 ml 420 ml Nutrition Consultation Dietary Evaluation: Recommendations by RD: Increase Calorie Intake, Protein supplementation Comments: REC regular diet with chocolate ensure tid Expected Outcomes/Goals: to meet > 75% est nutr needs Malnutrition Findings: Muscle Mass (Severe): Severe Depletion Body Fat Depletion (Non Severe: Mod to Severe Weight Status: Underweight CANDI KISER MD May 27, 2019 09:39
[2019-05-27] MEDS: AMIODARONE HCL 200 MG TABLET. PO SCH (10:51)
[2019-05-27] MEDS: ASPIRIN CHEWABLE 81 MG TABLET. PO SCH (10:52)
[2019-05-27] MEDS: LISINOPRIL 10 MG TABLET PO SCH (10:52)
[2019-05-27] MEDS: PANTOPRAZOLE 40 MG TABLET.DR. PO SCH (10:52)
[2019-05-27] MEDS: IRON POLYSACCHARIDE COMPLEX 150 MG CAPSULE PO SCH ×2 (10:52→21:20)
[2019-05-27] MEDS: LIDOCAINE (700MG/PATCH) PATCH. TD SCH (10:53)
[2019-05-27] MEDS: CHOLECALCIFEROL (VITAMIN D3) 5,000 UNIT CAPSULE PO SCH (10:53)
[2019-05-27] MEDS: HYDROcodone/APAP 5/325MG 1 TAB TABLET PO PRN (10:53)
--- NOTE | 2019-05-27 11:02 | PDOC ---
Subjective: Subjective: I saw her earlier this morning - was on commode w/ staff present for bed bath. Says she doesn't want to sit here again all day and wants to know the plan. No bleeding, has been NPO this morning. Says yesterday her lunch arrived at 3:00 and then they immediately brought dinner. Objective: Vital Signs: Vital Signs Date Time Temp Pulse Resp B/P (MAP) Pulse Ox O2 Delivery O2 Flow Rate FiO2 05/27/19 10:53 Room Air 05/27/19 10:53 67 155/72 05/27/19 07:34 98.3 18 95 98.3 Labs: Laboratory Tests Test 05/27/19 08:50 White Blood Count 3.8 x10^3/uL Red Blood Count 3.24 x10^6/uL Hemoglobin 8.9 g/dL Hematocrit 28.3 % Mean Corpuscular Volume 87 fL Mean Corpuscular Hemoglobin 27 pg Mean Corpuscular Hemoglobin Concent 31 g/dL Red Cell Distribution Width 19.0 % Platelet Count 153 x10^3/uL Neutrophils (%) (Auto) 80 % Lymphocytes (%) (Auto) 9 % Monocytes (%) (Auto) 8 % Eosinophils (%) (Auto) 2 % Basophils (%) (Auto) 1 % Neutrophils # (Auto) 3.1 x10^3/uL Lymphocytes # (Auto) 0.4 x10^3/uL Monocytes # (Auto) 0.3 x10^3/uL Eosinophils # (Auto) 0.1 x10^3/uL Basophils # (Auto) 0.0 x10^3/uL Prothrombin Time 25.4 SEC Prothromb Time International Ratio 2.3 Sodium Level 145 mmol/L Potassium Level 3.8 mmol/L Chloride Level 108 mmol/L Carbon Dioxide Level 28 mmol/L Anion Gap 9 Blood Urea Nitrogen 23 mg/dL Creatinine 1.4 mg/dL Estimated GFR (Cockcroft-Gault) 35.6 Glucose Level 99 mg/dL Calcium Level 8.5 mg/dL PE: GEN: NAD, thin, on commode LUNGS: room air HEART: irregular ABD: S/ND/NT NEURO/PSYCH: A & O �3, probably forgetful A/P: Compression fracture Coumadin coagulopathy - INR from 5.9 to 2.3 CKD - BUN below baseline ELLA, hemoccult positive - anemia first noted after hip surgery in 03/2019, stable since, no previous 'scopes and no obvious bleeding -- Continue iron, PPI. Outpt scopes. DORIE HAN May 27, 2019 11:02
[2019-05-27 11:32] VITALS: BP 146/73
--- NOTE | 2019-05-27 13:50 | PDOC ---
JHONATHAN GERONIMO FLIGHT PHYSICIAN 05/27/19 1350: CARDIO Progress Notes Date and Time Date of Service 05/27/19 Time of Evaluation 1305 Subjective Subjective: No Chest Pain, No shortness of breath, No Dizziness, Other (low back pain ) Vitals Vitals Vital Signs Date Time Temp Pulse Resp B/P (MAP) Pulse Ox O2 Delivery O2 Flow Rate FiO2 05/27/19 12:07 Room Air 05/27/19 11:32 97.6 74 18 146/73 (97) 99 97.6 Weight Weight [ ] Input and Output Intake and Output Intake and Output 05/27/19 07:00 Intake Total 720 ml Balance 720 ml Intake Oral 720 ml # Voids 11 Laboratory Labs Laboratory Tests Test 05/27/19 08:50 White Blood Count 3.8 x10^3/uL (4.0-11.0) Red Blood Count 3.24 x10^6/uL (3.50-5.40) Hemoglobin 8.9 g/dL (12.0-15.5) Hematocrit 28.3 % (36.0-47.0) Mean Corpuscular Volume 87 fL (79-100) Mean Corpuscular Hemoglobin 27 pg (25-35) Mean Corpuscular Hemoglobin Concent 31 g/dL (31-37) Red Cell Distribution Width 19.0 % (11.5-14.5) Platelet Count 153 x10^3/uL (140-400) Neutrophils (%) (Auto) 80 % (31-73) Lymphocytes (%) (Auto) 9 % (24-48) Monocytes (%) (Auto) 8 % (0-9) Eosinophils (%) (Auto) 2 % (0-3) Basophils (%) (Auto) 1 % (0-3) Neutrophils # (Auto) 3.1 x10^3/uL (1.8-7.7) Lymphocytes # (Auto) 0.4 x10^3/uL (1.0-4.8) Monocytes # (Auto) 0.3 x10^3/uL (0.0-1.1) Eosinophils # (Auto) 0.1 x10^3/uL (0.0-0.7) Basophils # (Auto) 0.0 x10^3/uL (0.0-0.2) Prothrombin Time 25.4 SEC (11.7-14.0) Prothromb Time International Ratio 2.3 (0.8-1.1) Sodium Level 145 mmol/L (136-145) Potassium Level 3.8 mmol/L (3.5-5.1) Chloride Level 108 mmol/L (98-107) Carbon Dioxide Level 28 mmol/L (21-32) Anion Gap 9 (6-14) Blood Urea Nitrogen 23 mg/dL (7-20) Creatinine 1.4 mg/dL (0.6-1.0) Estimated GFR (Cockcroft-Gault) 35.6 Glucose Level 99 mg/dL (70-99) Calcium Level 8.5 mg/dL (8.5-10.1) Physical Exam HEENT: Neck Supple W Full Motion Chest: Symmetric LUNGS: Clear to Auscultation Heart: S1S2, RRR Abdomen: Soft N/T Extremities: No Edema Neurology: alert, oriented, follow commands Assessment Assessment 1. Mechanical fall with T12 fracture and subacute sacral fracture. 2. Warfarin induced coagulopathy: INR initially at 5.9 and trending down. 3. Anemia: Hgb stable at 8.9. No obvious bleed 4. CAD: past CABG, clinically stable 5. PAFIB; maintaining SR 6. 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 Echo with mild MR. No mitral valve prolapse. 7. PPM: Biotronik with hx of SSS. Normal function, 0% AFIB burden with intermittent atrial-V pacing. no significant arrhythmias. 8. HTN: controlled 9. HLP Recommendations Poor candidate for long-term OAC. ASA for stroke prevention Continue Amiodarone for rhythm maintenance Supportive care from a CV standpoint. DOUG ANDERSON MD 05/27/19 3630: CARDIO Progress Notes Assessment Assessment Patient seen and examined. Agree with LPN RN's assessment and plan. Continue current management for T12 fracture 2-D echo results as noted above Maintaining sinus rhythm with amiodarone Agree that she is a poor candidate for long-term anticoagulation JHONATHAN GERONIMO APRN May 27, 2019 13:50 DOUG ANDERSON MD May 27, 2019 17:40
--- NOTE | 2019-05-27 15:11 | NUR ---
SW following pt. Spoke with Evangelina, PT, recommends SNU today but pt might progress and be able to go home with home health by tomorrow. Will continue to follow. Discussed with RN.
--- NOTE | 2019-05-27 15:19 | RAD ---
EXAM: CT Abdomen and Pelvis without IV contrast CLINICAL HISTORY: Mass, hematuria. COMPARISON: none TECHNIQUE: Helical CT of the abdomen and pelvis without intravenous contrast. Axial, coronal and sagittal reformatted images were generated. PQRS compliance statement - One or more of the following individualized dose reduction techniques were utilized for this study: 1. Automated exposure control 2. Adjustment of the mA and/or kV according to patient size 3. Use of iterative reconstruction technique FINDINGS: Lack of intravenous contrast limits evaluation of solid organs, vasculature, and lymph nodes. Lower chest: Small bilateral pleural effusions are seen. Dependent opacities in the lung bases likely atelectasis. Cardiomegaly with pacer leads and extensive coronary artery calcifications. Abdomen and Pelvis: Marked high density appearance of the liver on this noncontrast exam is nonspecific but may be seen with hemochromatosis, deposition disease or prior amiodarone therapy. Left lower pole hypodense liver lesion is too small to accurately characterize. Liver is enlarged. High density material dependently within the gallbladder likely sludge and/or small gallstones. Spleen is unremarkable. Adrenal glands are normal. The right kidney is atrophic. Left lower pole nonobstructing renal calculus is seen. No hydronephrosis. No hydroureter. Moderate colonic stool content is seen. No evidence for bowel obstruction. Dense aortic calcifications are seen. 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 Streak artifact limits evaluation the pelvis. The partially distended bladder is not well delineated. Moderate to large volume colonic stool content is seen. Bones: 2 chronic left superior and inferior pubic rami fractures are seen. The left superior pubic ramus fracture extends into the anterior left acetabulum. IM nail fixation of the left hip fracture is seen. Subacute/healing left sacral insufficiency fractures are seen. Severe disc height loss of the T12 vertebral body, marginally progressed compared to prior CT 05/25/2019. Marked osteopenia. IMPRESSION: 1. Nonobstructing left lower pole renal calculus. No definite ureteral calculus is identified. 2. Dense atherosclerotic calcifications of aorta with aneurysmal dilatation of the infrarenal aorta 3. Small gallstones or sludge are seen within the gallbladder dependently. 4. Hepatomegaly. High density of the liver is nonspecific but may be seen with hemachromatosis, amiodarone therapy and deposition disease. Electronically signed by: West Ochoa MD (05/27/2019 3:16 PM) [facility]
[2019-05-27 15:57] VITALS: BP 111/48
--- NOTE | 2019-05-27 16:53 | RAD ---
CLINICAL HISTORY: HEMATURIA. SIZE DISCREPANCY , SM. RT KIDNEY . RT KID 7.7 X 2.9 X 2.6 CM. LT KID 11.2 X 3.5 X 3.7 CM.
NL BLADDER APPEARANCE COMPARISON: None available. TECHNIQUE: Ultrasound examination of the bilateral kidneys and urinary bladder was performed. FINDINGS: The right kidney measures 6.9 cm in bipolar length. The right kidney is echogenic and small. No hydronephrosis. No focal right renal lesion. The left kidney measures 11.2 cm in bipolar length. The renal cortex is normal in thickness. Renal echogenicity is normal. There is no evidence for hydronephrosis, shadowing renal calculus or focal abnormality. Images of the partially filled urinary bladder are unremarkable. IMPRESSION: 1. Small and echogenic appearance of the right kidney, consistent with atrophy. 2. The left kidney is grossly normal in appearance 3. Partially distended bladder is unremarkable. Electronically signed by: West Ochoa MD (05/27/2019 4:50 PM) [facility]
[2019-05-27] MEDS: POLYETHYLENE GLYCOL 3350 17 GM PACKET. PO SCH (17:30)
[2019-05-27 19:10] VITALS: BP 115/49
[2019-05-27] MEDS: EZETIMIBE 10 MG TABLET. PO SCH (19:14)
[2019-05-27] MEDS ORDERED: PHYTONADIONE 10 MG/ML AMPUL. SQ ONE (20:15)
[2019-05-27] MEDS: PATCH REMOVAL. MC SCH (21:00)
[2019-05-27] MEDS: GABAPENTIN 100 MG CAPSULE. PO SCH (21:20)
[2019-05-27] MEDS: tiZANidine 4 MG TABLET. PO SCH (21:20)
[2019-05-27 22:46] VITALS: BP 102/52
[2019-05-28] VITALS (22 sets, daily range): BP systolic 105–159; BP diastolic 43–76
[2019-05-28] MEDS: HYDROcodone/APAP 5/325MG 1 TAB TABLET PO PRN ×2 (00:24→13:31)
[2019-05-28 05:21] LABS: ALBUMIN 2.8 g/dL (3.4-5.0); CALCIUM 8.2 mg/dL (8.5-10.1); CREATININE 1.4 mg/dL (0.6-1.0); GFR 35.6; TOTAL BILIRUBIN 0.8 mg/dL (0.2-1.0); TOTAL PROTEIN 5.7 g/dL (6.4-8.2)
[2019-05-28] MEDS ORDERED: LIDOCAINE WITH 8.4% SOD BICARB 3 ML DISP.SYRIN. ONE (09:23)
[2019-05-28] MEDS ORDERED: MIDAZOLAM HCL/PF 2 MG/2 ML VIAL. ONE (09:51)
[2019-05-28] MEDS ORDERED: fentaNYL PF VIAL 100 MCG/2 ML VIAL ONE (09:51)
--- NOTE | 2019-05-28 10:13 | PDOC ---
[facility] [facility] PROGRESS NOTE Chief Complaint Chief Complaint Elevated INR Recent hx L hip replacement surgery CKD4 Anemia of CKD AFib CAD HTN Hyperlipidemia Valve insufficiency History of Present Illness History of Present Illness 05/28/19 Pt seen/examined at bedside Clean/dry/intact L hip wound from hip replacement surgery Pt alert and asking when procedure would occur today (sacroplasty) Called IR who was on the way up Vitals/I&O Vitals/I&O: Vital Signs Date Time Temp Pulse Resp B/P (MAP) Pulse Ox O2 Delivery O2 Flow Rate FiO2 05/28/19 09:55 Nasal Cannula 2.0 05/28/19 07:55 98.3 66 18 153/62 (92) 95 98.3 I & O 05/27/19 05/27/19 05/28/19 15:00 23:00 07:00 Intake Total 0 ml 400 ml 480 ml Balance 0 ml 400 ml 480 ml Physical Exam General: Alert, Oriented X3, Cooperative, No acute distress Heart: Regular rate (SR with occasional V and atrial pacing), Other (5/6 holosystolic apical murmur) Lungs: Clear Abdomen: Normal bowel sounds, Soft, No tenderness Extremities: No clubbing, No cyanosis, No edema Skin: No breakdown, No significant lesion Labs Labs: Laboratory Tests Test 05/28/19 03:40 Prothrombin Time 20.0 SEC (11.7-14.0) Prothromb Time International Ratio 1.7 (0.8-1.1) Sodium Level 144 mmol/L (136-145) Potassium Level 4.0 mmol/L (3.5-5.1) Chloride Level 108 mmol/L (98-107) Carbon Dioxide Level 29 mmol/L (21-32) Anion Gap 7 (6-14) Blood Urea Nitrogen 23 mg/dL (7-20) Creatinine 1.4 mg/dL (0.6-1.0) Estimated GFR (Cockcroft-Gault) 35.6 BUN/Creatinine Ratio 16 (6-20) Glucose Level 86 mg/dL (70-99) Calcium Level 8.2 mg/dL (8.5-10.1) Total Bilirubin 0.8 mg/dL (0.2-1.0) Aspartate Amino Transf (AST/SGOT) 45 U/L (15-37) Alanine Aminotransferase (ALT/SGPT) 29 U/L (14-59) Alkaline Phosphatase 180 U/L (46-116) Total Protein 5.7 g/dL (6.4-8.2) Albumin 2.8 g/dL (3.4-5.0) Albumin/Globulin Ratio 1.0 (1.0-1.7) Review of Systems Review of Systems: CO back pain No confusion Assessment and Plan Assessmemt and Plan Problems Medical Problems: (1) Elevated INR Status: Acute (2) Sacral fracture Status: Acute (3) T12 compression fracture Status: Acute Assessment Elevated INR Recent hx L hip replacement surgery CKD4 Anemia of CKD AFib CAD HTN Hyperlipidemia Valve insufficiency Plan Monitor INR PT/OT Wound detention meds DVT prophylaxis Sacroplasty Hope to D/C to SNU after sacroplasty Start Coumadin if ok with subspecialists Comment Review of Relevant I have reviewed the following items jaziel (where applicable) has been applied. Medications: Current Medications Medications (Trade) Dose Ordered Sig/Jacob Route PRN Reason Start Time Stop Time Status Last Admin Dose Admin Polyethylene Glycol (miraLAX PACKET) 17 gm DAILY PO 05/27/19 16:00 05/27/19 17:37 Phytonadione (Vitamin K Ampule) 5 mg 1X ONCE SQ 05/27/19 20:15 05/27/19 20:16 DC 05/27/19 22:00 CHIQUIS THAYER III DO May 28, 2019 10:13
[2019-05-28] MEDS ORDERED: LIDOCAINE WITH 8.4% SOD BICARB 3 ML DISP.SYRIN. IJ ONE (10:45)
[2019-05-28] MEDS ORDERED: MIDAZOLAM HCL/PF 2 MG/2 ML VIAL. IV ONE (10:45)
[2019-05-28] MEDS ORDERED: fentaNYL PF VIAL 100 MCG/2 ML VIAL IV ONE (10:45)
--- NOTE | 2019-05-28 10:54 | PDOC ---
SUBJECTIVE Subjective Patient has her chronic back pain but nothing out of the usual for her. No hematuria or dysuria OBJECTIVE Objective Physical Exam: General appearance: Alert and Oriented Head: Normocephalic, without obvious abnormality Eyes: conjunctivae/corneas clear. PERRL, EOM's intact. Fundi benign Back: no flank pain on testing. Chronic musculoskeletal pain present. Lungs:Regular respirations, non labored breathing Abdomen: soft, non-tender. . No masses, no organomegaly Vital Signs Vital Signs Date Time Temp Pulse Resp B/P (MAP) Pulse Ox O2 Delivery O2 Flow Rate FiO2 05/28/19 10:41 17 100 Nasal Cannula 2.0 05/28/19 10:40 71 22 99 Nasal Cannula 2.0 05/28/19 10:35 65 13 100 Nasal Cannula 2.0 05/28/19 10:30 64 17 100 Nasal Cannula 2.0 05/28/19 10:25 64 20 100 Nasal Cannula 2.0 05/28/19 10:20 68 11 100 Nasal Cannula 2.0 05/28/19 10:15 66 17 100 Nasal Cannula 2.0 05/28/19 10:10 73 19 100 Nasal Cannula 2.0 05/28/19 10:05 68 13 100 Nasal Cannula 2.0 05/28/19 10:00 76 15 100 Nasal Cannula 2.0 05/28/19 09:55 Nasal Cannula 2.0 05/28/19 07:55 98.3 66 18 153/62 (92) 95 Room Air 98.3 05/28/19 05:05 94 Room Air 05/28/19 03:15 97.4 73 20 153/68 (96) 94 Room Air 97.4 05/27/19 22:46 98.4 69 18 102/52 (69) 95 Room Air 98.4 05/27/19 20:00 Room Air 05/27/19 19:10 97.9 68 16 115/49 (71) 95 Room Air 97.9 05/27/19 15:57 98.1 76 18 111/48 (69) 97 Room Air 98.1 05/27/19 12:07 Room Air 05/27/19 11:32 97.6 74 18 146/73 (97) 99 Room Air 97.6 05/27/19 10:53 Room Air 05/27/19 10:53 67 155/72 05/27/19 10:51 67 155/72 I & O Intake and Output 05/28/19 07:00 Intake Total 880 ml Balance 880 ml Intake Oral 880 ml # Voids 4 PHYSICAL EXAM Physical Exam Physical Exam: General appearance: Alert and Oriented Head: Normocephalic, without obvious abnormality Eyes: conjunctivae/corneas clear. PERRL, EOM's intact. Fundi benign Back: no flank pain on testing. Chronic musculoskeletal pain present. Lungs:Regular respirations, non labored breathing Abdomen: soft, non-tender. . No masses, no organomegaly ASSESSMENT/PLAN Assessment/Plan Pt reports no dysuria or hematuria since arriving in house. She has microscoping hematuria only that is asymptomatic. We will evaluate this as an outpatient. A follow up appointment has been secured for her on 06/10/19 at 1:20 pm. Willl sign off at this time, but please call with questions or changes in patient condition. COMMENT Lab Laboratory Tests Test 05/28/19 03:40 Prothrombin Time 20.0 SEC (11.7-14.0) Prothromb Time International Ratio 1.7 (0.8-1.1) Sodium Level 144 mmol/L (136-145) Potassium Level 4.0 mmol/L (3.5-5.1) Chloride Level 108 mmol/L (98-107) Carbon Dioxide Level 29 mmol/L (21-32) Anion Gap 7 (6-14) Blood Urea Nitrogen 23 mg/dL (7-20) Creatinine 1.4 mg/dL (0.6-1.0) Estimated GFR (Cockcroft-Gault) 35.6 BUN/Creatinine Ratio 16 (6-20) Glucose Level 86 mg/dL (70-99) Calcium Level 8.2 mg/dL (8.5-10.1) Total Bilirubin 0.8 mg/dL (0.2-1.0) Aspartate Amino Transf (AST/SGOT) 45 U/L (15-37) Alanine Aminotransferase (ALT/SGPT) 29 U/L (14-59) Alkaline Phosphatase 180 U/L (46-116) Total Protein 5.7 g/dL (6.4-8.2) Albumin 2.8 g/dL (3.4-5.0) Albumin/Globulin Ratio 1.0 (1.0-1.7) Nutrition Consultation Dietary Evaluation: Recommendations by RD: Increase Calorie Intake, Protein supplementation Comments: REC regular diet with chocolate ensure tid Expected Outcomes/Goals: to meet > 75% est nutr needs Malnutrition Findings: Muscle Mass (Severe): Severe Depletion Body Fat Depletion (Non Severe: Mod to Severe Weight Status: Underweight YOLY VELASQUEZ APRN May 28, 2019 10:54
--- NOTE | 2019-05-28 11:09 | NUR ---
Patient underwent sarcoplasty this morning, came back to the unit at 1100. She's alert, oriented x3, denies any pain. VS upon arrival BP 139/63 HR 69 RR 18 Temp97.7F O2 sat 91% on room air. Dressing on sacral area is clean, dry and intact. We'll continue to monitor.
--- NOTE | 2019-05-28 11:14 | PDOC ---
Subjective: Subjective: Doing okay - no bleeding, tired of waiting, wants to know what's taking so long. Objective: Objective: Nurse present - for IR procedure today. Vital Signs: Vital Signs Date Time Temp Pulse Resp B/P (MAP) Pulse Ox O2 Delivery O2 Flow Rate FiO2 05/28/19 10:47 67 13 99 Nasal Cannula 2.0 05/28/19 07:55 98.3 153/62 (92) 98.3 Labs: Laboratory Tests Test 05/28/19 03:40 Prothrombin Time 20.0 SEC Prothromb Time International Ratio 1.7 Sodium Level 144 mmol/L Potassium Level 4.0 mmol/L Chloride Level 108 mmol/L Carbon Dioxide Level 29 mmol/L Anion Gap 7 Blood Urea Nitrogen 23 mg/dL Creatinine 1.4 mg/dL Estimated GFR (Cockcroft-Gault) 35.6 BUN/Creatinine Ratio 16 Glucose Level 86 mg/dL Calcium Level 8.2 mg/dL Total Bilirubin 0.8 mg/dL Aspartate Amino Transf (AST/SGOT) 45 U/L Alanine Aminotransferase (ALT/SGPT) 29 U/L Alkaline Phosphatase 180 U/L Total Protein 5.7 g/dL Albumin 2.8 g/dL Albumin/Globulin Ratio 1.0 PE: GEN: NAD, thin LUNGS: CTAB HEART: RRR +murm ABD: S/ND/NT NEURO/PSYCH: A & O �3 A/P: Compression fracture Coumadin coagulopathy - resolved (INR 1.7) ELLA, hemoccult positive - stable -- Continue iron, PPI. Plan for outpt EGD and colonoscopy. DORIE HAN May 28, 2019 11:14
--- NOTE | 2019-05-28 12:38 | PDOC2 ---
CONSULT Date of Consult Date of Consult DATE: 05/28/19 TIME: 12:31 Identification/Chief Complaint Chief Complaint THIS IS AN 89 YR OLD WITH BACK PAIN. ALSO HAS HAD SOME DIZZINESS. OP INR WA VERY HIGH AND FOR ALL THESE REASONS ADMITTED AND UNDERGOING EVALUATION. 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 NO NEPHROTOXINS. SONO SHOWED ATROPHIC RIGHT KIDNEY AND SOME URINARY RETENTION. HEMODYNAMICALLY STABLE Source Source: Chart review History of Present Illness Reason for Visit: ABOVE Past Medical History Cardiovascular: AFIB, CAD, HTN, Hyperlipidemia, Valve insufficiency, Other (SSS) CENTRAL NERVOUS SYSTEM: Periperal neuropathy GI: No pertinent hx Heme/Onc: No pertinent hx Psych: No pertinent hx Musculoskeletal: Osteoarthritis Rheumatologic: Other Infectious disease: No pertinent hx Endocrine: Osteoporosis Past Surgical History Past Surgical History: Pacemaker (Biotronik), Arthroscopy (left ORIF 04/02/2019), CABG (x5), Other (Mitral clip 10/2018) Family History Family History: Heart Disease (father) Social History No ALCOHOL: none Drugs: None Lives: with Family Current Problem List Problem List Problems Medical Problems: (1) Elevated INR Status: Acute (2) Sacral fracture Status: Acute (3) T12 compression fracture Status: Acute Current Medications Current Medications Current Medications Acetaminophen (Tylenol) 1,000 mg 1X ONCE PO Last administered on 05/25/19at 16:23; Start 05/25/19 at 16:00; Stop 05/25/19 at 16:01; Status DC Fentanyl Citrate (Fentanyl 2ml Vial) 25 mcg 1X ONCE IV Last administered on 05/25/19at 16:23; Start 05/25/19 at 16:15; Stop 05/25/19 at 16:16; Status DC Amiodarone HCl (Cordarone) 200 mg DAILY PO Last administered on 05/27/19at 10:51; Start 05/26/19 at 09:00 Aspirin (Children'S Aspirin) 81 mg DAILY PO Last administered on 05/27/19at 10:53; Start 05/26/19 at 09:00 Bisacodyl (Dulcolax Supp) 10 mg PRN DAILY PRN [place] CONSTIPATION; Start 05/25/19 at 19:30 Cyclobenzaprine HCl (Flexeril) 5 mg PRN Q12HR PRN PO MUSCLE SPASMS; Start 05/25/19 at 19:30 EZETIMIBE (Zetia) 10 mg QEVNG PO Last administered on 05/27/19 19:15; Start 05/26/19 at 18:00 Gabapentin (Neurontin) 100 mg HS PO Last administered on 05/27/19 21:20; Start 05/25/19 at 21:00 Acetaminophen/ Hydrocodone Bitart (Lortab 5/325) 1 tab PRN Q4HRS PRN PO MODERATE PAIN Last administered on 05/28/19 00:24; Start 05/25/19 at 19:30 Lisinopril (Prinivil) 10 mg DAILY PO Last administered on 05/27/19 10:53; Start 05/26/19 at 09:00 Pantoprazole Sodium (Protonix) 40 mg DAILYAC PO Last administered on 05/27/19 10:53; Start 05/26/19 at 07:30 Fentanyl Citrate (Fentanyl 2ml Vial) 25 mcg 1X ONCE IV Last administered on 05/25/19 19:46; Start 05/25/19 at 19:45; Stop 05/25/19 at 19:46; Status DC Phytonadione (Mephyton Oral Soln) 5 mg 1X ONCE PO Last administered on 05/25/19 21:04; Start 05/25/19 at 20:15; Stop 05/25/19 at 20:16; Status DC Vitamin D (Vitamin D3) 5,000 unit DAILY PO Last administered on 05/27/19 10:53; Start 05/26/19 at 09:00 Tizanidine HCl (Zanaflex) 2 mg HS PO Last administered on 05/27/19 21:20; Start 05/26/19 at 21:00 Tizanidine HCl (Zanaflex) 2 mg 1X ONCE PO Last administered on 05/26/19 02:29; Start 05/25/19 at 23:55; Stop 05/25/19 at 23:57; Status DC Polysaccharide Iron Complex (Niferex 150) 150 mg BID PO Last administered on 05/27/19 21:20; Start 05/26/19 at 21:00 Lidocaine (Lidoderm) 1 patch DAILY TD Last administered on 05/27/19 10:53; Start 05/26/19 at 10:00 Miscellaneous (Lidoderm Patch Removal) 1 ea QHS MC Last administered on 05/26/19at 20:58; Start 05/26/19 at 21:00 Phytonadione (Vitamin K Ampule) 5 mg 1X ONCE SQ Last administered on 05/26/19at 17:20; Start 05/26/19 at 16:00; Stop 05/26/19 at 16:01; Status DC Polyethylene Glycol (miraLAX PACKET) 17 gm DAILY PO Last administered on 05/27/19at 17:37; Start 05/27/19 at 16:00 Phytonadione (Vitamin K Ampule) 5 mg 1X ONCE SQ Last administered on 05/27/19at 22:00; Start 05/27/19 at 20:15; Stop 05/27/19 at 20:16; Status DC Lidocaine/Sodium Bicarbonate (Buffered Lidocaine 1%) 3 ml STK-MED ONCE .ROUTE ; Start 05/28/19 at 09:23; Stop 05/28/19 at 09:23; Status DC Cefazolin Sodium 50 ml @ As Directed STK-MED ONCE IV ; Start 05/28/19 at 09:51; Stop 05/28/19 at 09:51; Status DC Midazolam HCl (Versed) 2 mg STK-MED ONCE .ROUTE ; Start 05/28/19 at 09:51; Stop 05/28/19 at 09:51; Status DC Fentanyl Citrate (Fentanyl 2ml Vial) 100 mcg STK-MED ONCE .ROUTE ; Start 05/28/19 at 09:51; Stop 05/28/19 at 09:51; Status DC Lidocaine/Sodium Bicarbonate (Buffered Lidocaine 1%) 6 ml 1X ONCE IJ Last administered on 05/28/19at 10:46; Start 05/28/19 at 10:45; Stop 05/28/19 at 10:46; Status DC Midazolam HCl (Versed) 2 mg 1X ONCE IV Last administered on 05/28/19at 10:41; Start 05/28/19 at 10:45; Stop 05/28/19 at 10:46; Status DC Fentanyl Citrate (Fentanyl 2ml Vial) 100 mcg 1X ONCE IV Last administered on 05/28/19at 10:41; Start 05/28/19 at 10:45; Stop 05/28/19 at 10:46; Status DC Cefazolin Sodium 50 ml @ 100 mls/hr 1X ONCE IV Last administered on 05/28/19at 10:46; Start 05/28/19 at 10:45; Stop 05/28/19 at 11:14; Status DC Active Scripts Active [Pantoprazole] 40 MG Tablet.dr 40 Mg PO DAILYAC 30 Days Bisacodyl 10 Mg Supp.rect 10 Mg NM PRN DAILY PRN 14 Days Hydrocodone-Apap 5-325 (Hydrocodone Bit/Acetaminophen) 1 Tab Tablet 1 Tab PO PRN Q4HRS PRN 14 Days Cyclobenzaprine Hcl 10 Mg Tablet 5 Mg PO PRN Q12HR PRN 7 Days Reported Tizanidine Hcl 2 Mg Capsule 2 Mg PO HS Warfarin Sodium 2.5 Mg Tablet 2.5 Mg PO CONT PRN Amiodarone Hcl 200 Mg Tablet 1 Tab PO DAILY Aspirin 81 Mg Tab.chew 1 Tab PO DAILY Lisinopril 10 Mg Tablet 1 Tab PO DAILY Zetia (Ezetimibe) 10 Mg Tablet 10 Mg PO QEVNG Multivitamins (Multivitamin) 1 Each Tablet 1 Tab PO DAILY Calcium 600 + Vit D 200 Tablet (Calcium Carbonate/Vitamin D3) 1 Each Tablet 1 Each PO QEVNG Gabapentin (Gabapentin) 100 Mg Capsule 100 Mg PO HS Allergies Allergies: Coded Allergies: Sulfa (Sulfonamide Antibiotics) (Verified Allergy, Intermediate, HIVES, 04/01/19) ROS Review of System NOT A GOOD HISTORIAN. ATTEMPTED Physical Exam General: Alert, Cooperative, No acute distress HEENT: Atraumatic, PERRLA, EOMI, Mucous membr. moist/pink Lungs: Clear to auscultation Heart: Other (IRREGULAR) Abdomen: Normal bowel sounds, Soft Extremities: No clubbing, No cyanosis, Normal pulses Skin: No rashes, No breakdown Neuro: Normal speech Psych/Mental Status: Mood NL MUSCULOSKELETAL: No deformity, No swelling Vitals VITALS Vital Signs Date Time Temp Pulse Resp B/P (MAP) Pulse Ox O2 Delivery O2 Flow Rate FiO2 05/28/19 11:15 97.7 75 18 139/63 (88) 94 Room Air 97.7 05/28/19 10:47 2.0 Labs Labs Laboratory Tests Test 05/27/19 08:50 05/28/19 03:40 White Blood Count 3.8 x10^3/uL (4.0-11.0) Red Blood Count 3.24 x10^6/uL (3.50-5.40) Hemoglobin 8.9 g/dL (12.0-15.5) Hematocrit 28.3 % (36.0-47.0) Mean Corpuscular Volume 87 fL (79-100) Mean Corpuscular Hemoglobin 27 pg (25-35) Mean Corpuscular Hemoglobin Concent 31 g/dL (31-37) Red Cell Distribution Width 19.0 % (11.5-14.5) Platelet Count 153 x10^3/uL (140-400) Neutrophils (%) (Auto) 80 % (31-73) Lymphocytes (%) (Auto) 9 % (24-48) Monocytes (%) (Auto) 8 % (0-9) Eosinophils (%) (Auto) 2 % (0-3) Basophils (%) (Auto) 1 % (0-3) Neutrophils # (Auto) 3.1 x10^3/uL (1.8-7.7) Lymphocytes # (Auto) 0.4 x10^3/uL (1.0-4.8) Monocytes # (Auto) 0.3 x10^3/uL (0.0-1.1) Eosinophils # (Auto) 0.1 x10^3/uL (0.0-0.7) Basophils # (Auto) 0.0 x10^3/uL (0.0-0.2) Prothrombin Time 25.4 SEC (11.7-14.0) 20.0 SEC (11.7-14.0) Prothromb Time International Ratio 2.3 (0.8-1.1) 1.7 (0.8-1.1) Sodium Level 145 mmol/L (136-145) 144 mmol/L (136-145) Potassium Level 3.8 mmol/L (3.5-5.1) 4.0 mmol/L (3.5-5.1) Chloride Level 108 mmol/L (98-107) 108 mmol/L (98-107) Carbon Dioxide Level 28 mmol/L (21-32) 29 mmol/L (21-32) Anion Gap 9 (6-14) 7 (6-14) Blood Urea Nitrogen 23 mg/dL (7-20) 23 mg/dL (7-20) Creatinine 1.4 mg/dL (0.6-1.0) 1.4 mg/dL (0.6-1.0) Estimated GFR (Cockcroft-Gault) 35.6 35.6 Glucose Level 99 mg/dL (70-99) 86 mg/dL (70-99) Calcium Level 8.5 mg/dL (8.5-10.1) 8.2 mg/dL (8.5-10.1) BUN/Creatinine Ratio 16 (6-20) Total Bilirubin 0.8 mg/dL (0.2-1.0) Aspartate Amino Transf (AST/SGOT) 45 U/L (15-37) Alanine Aminotransferase (ALT/SGPT) 29 U/L (14-59) Alkaline Phosphatase 180 U/L (46-116) Total Protein 5.7 g/dL (6.4-8.2) Albumin 2.8 g/dL (3.4-5.0) Albumin/Globulin Ratio 1.0 (1.0-1.7) Laboratory Tests Test 05/28/19 03:40 Prothrombin Time 20.0 SEC (11.7-14.0) Prothromb Time International Ratio 1.7 (0.8-1.1) Sodium Level 144 mmol/L (136-145) Potassium Level 4.0 mmol/L (3.5-5.1) Chloride Level 108 mmol/L (98-107) Carbon Dioxide Level 29 mmol/L (21-32) Anion Gap 7 (6-14) Blood Urea Nitrogen 23 mg/dL (7-20) Creatinine 1.4 mg/dL (0.6-1.0) Estimated GFR (Cockcroft-Gault) 35.6 BUN/Creatinine Ratio 16 (6-20) Glucose Level 86 mg/dL (70-99) Calcium Level 8.2 mg/dL (8.5-10.1) Total Bilirubin 0.8 mg/dL (0.2-1.0) Aspartate Amino Transf (AST/SGOT) 45 U/L (15-37) Alanine Aminotransferase (ALT/SGPT) 29 U/L (14-59) Alkaline Phosphatase 180 U/L (46-116) Total Protein 5.7 g/dL (6.4-8.2) Albumin 2.8 g/dL (3.4-5.0) Albumin/Globulin Ratio 1.0 (1.0-1.7) Assessment/Plan Assessment/Plan IMP CKD STAGE 4 TO 3 WITH CR AT BASELINE NOW SUPRATHERAPEUTIC INR BACK PAIN WITH T 12 FX ANEMIA CAD WITH AFIB, PPM AND VALVULAR HEART DZ HEMATURIA-PROB NEEDS RECHECK ONCE INR IS BETTER HTN HX PLAN UROLOGY W/U AT SOME POINT FOR HEMATURIA CARDIAC W/U RENAL FXN IS STABLE WILL FOLLOW NEEDED GREG PARTIDA MD May 28, 2019 12:37
[2019-05-28] MEDS: PANTOPRAZOLE 40 MG TABLET.DR. PO SCH (13:30)
[2019-05-28] MEDS: CHOLECALCIFEROL (VITAMIN D3) 5,000 UNIT CAPSULE PO SCH (13:30)
[2019-05-28] MEDS: IRON POLYSACCHARIDE COMPLEX 150 MG CAPSULE PO SCH ×2 (13:30→20:59)
[2019-05-28] MEDS: AMIODARONE HCL 200 MG TABLET. PO SCH (13:30)
[2019-05-28] MEDS: ASPIRIN CHEWABLE 81 MG TABLET. PO SCH (13:31)
[2019-05-28] MEDS: LISINOPRIL 10 MG TABLET PO SCH (13:31)
[2019-05-28] MEDS: LIDOCAINE (700MG/PATCH) PATCH. TD SCH (13:32)
--- NOTE | 2019-05-28 13:32 | NUR ---
SW following pt. Spoke with pt at bedside and she is interested in going to [facility]. Pt is notified of insurance coverage for SNU. POONAM phoned and faxed referral to [facility]. Pt acceptance and admission pending.
[2019-05-28] MEDS: POLYETHYLENE GLYCOL 3350 17 GM PACKET. PO SCH (15:46)
[2019-05-28] MEDS: EZETIMIBE 10 MG TABLET. PO SCH (17:30)
[2019-05-28] MEDS ORDERED: WARFARIN 2.5 MG TABLET. PO ONE (18:00)
--- NOTE | 2019-05-28 18:02 | NUR ---
Pharmacy Warfarin Dosing Note S:Pharmacy consulted to assist with anticoagulation therapy started with target INR: 2 -3 O:ADDISON GARCIA is a 89 year old F with Atrial Fibrillation LABS: Last INR: 1.7 Last HGB: 8.9 Last HCT: 28.3 Last PLT: 153 Last dose of Hold given on at Previous Regimen: 5 mg on Saturday and and 2.5 mg Saturday, Saturday, Saturday, Saturday, Saturday Vitamin K given: Y 05/26 and 05/27 Drug Interaction Changes: Same Interacting Drug Ongoing Drug Interactions: Amiodarone, Aspirin A:INR of 1.7 is below desired range. Target range for this patient is: 2 -3 P: Warfarin dose: 2.5 mg Today at 1600 Bridge Therapy: None Next INR due 05/29/19 Pharmacy anticoagulation service will continue to follow. GRANT ADAN, [facility], 05/28/19 [id number]
--- NOTE | 2019-05-28 18:07 | PDOC ---
PROGRESS NOTES Subjective Subjective She admits continued low back pain with any movement od her low back. Objective Objective Vital Signs Date Time Temp Pulse Resp B/P (MAP) Pulse Ox O2 Delivery O2 Flow Rate FiO2 05/28/19 17:55 18 96 Room Air 05/28/19 15:47 98.2 68 112/43 (66) 98.2 05/28/19 10:47 2.0 Intake and Output 05/28/19 06:59 Intake Total 880 ml Balance 880 ml Intake Oral 880 ml # Voids 4 Physical Exam Physical Exam She is awake and she required more assistance with transfers today when compared to yesterday but she did walk with roller walker under supervision when up. Assessment Assessment Problems Medical Problems: (1) Elevated INR Status: Acute (2) Sacral fracture Status: Acute (3) T12 compression fracture Status: Acute Plan Plan of Care Agree with plans for SNF when medically stable. Comment Review of Relevant I have reviewed the following items jaziel (where applicable) has been applied. Labs Laboratory Tests Test 05/27/19 08:50 05/28/19 03:40 White Blood Count 3.8 x10^3/uL (4.0-11.0) Red Blood Count 3.24 x10^6/uL (3.50-5.40) Hemoglobin 8.9 g/dL (12.0-15.5) Hematocrit 28.3 % (36.0-47.0) Mean Corpuscular Volume 87 fL (79-100) Mean Corpuscular Hemoglobin 27 pg (25-35) Mean Corpuscular Hemoglobin Concent 31 g/dL (31-37) Red Cell Distribution Width 19.0 % (11.5-14.5) Platelet Count 153 x10^3/uL (140-400) Neutrophils (%) (Auto) 80 % (31-73) Lymphocytes (%) (Auto) 9 % (24-48) Monocytes (%) (Auto) 8 % (0-9) Eosinophils (%) (Auto) 2 % (0-3) Basophils (%) (Auto) 1 % (0-3) Neutrophils # (Auto) 3.1 x10^3/uL (1.8-7.7) Lymphocytes # (Auto) 0.4 x10^3/uL (1.0-4.8) Monocytes # (Auto) 0.3 x10^3/uL (0.0-1.1) Eosinophils # (Auto) 0.1 x10^3/uL (0.0-0.7) Basophils # (Auto) 0.0 x10^3/uL (0.0-0.2) Prothrombin Time 25.4 SEC (11.7-14.0) 20.0 SEC (11.7-14.0) Prothromb Time International Ratio 2.3 (0.8-1.1) 1.7 (0.8-1.1) Sodium Level 145 mmol/L (136-145) 144 mmol/L (136-145) Potassium Level 3.8 mmol/L (3.5-5.1) 4.0 mmol/L (3.5-5.1) Chloride Level 108 mmol/L (98-107) 108 mmol/L (98-107) Carbon Dioxide Level 28 mmol/L (21-32) 29 mmol/L (21-32) Anion Gap 9 (6-14) 7 (6-14) Blood Urea Nitrogen 23 mg/dL (7-20) 23 mg/dL (7-20) Creatinine 1.4 mg/dL (0.6-1.0) 1.4 mg/dL (0.6-1.0) Estimated GFR (Cockcroft-Gault) 35.6 35.6 Glucose Level 99 mg/dL (70-99) 86 mg/dL (70-99) Calcium Level 8.5 mg/dL (8.5-10.1) 8.2 mg/dL (8.5-10.1) BUN/Creatinine Ratio 16 (6-20) Total Bilirubin 0.8 mg/dL (0.2-1.0) Aspartate Amino Transf (AST/SGOT) 45 U/L (15-37) Alanine Aminotransferase (ALT/SGPT) 29 U/L (14-59) Alkaline Phosphatase 180 U/L (46-116) Total Protein 5.7 g/dL (6.4-8.2) Albumin 2.8 g/dL (3.4-5.0) Albumin/Globulin Ratio 1.0 (1.0-1.7) Laboratory Tests Test 05/28/19 03:40 Prothrombin Time 20.0 SEC (11.7-14.0) Prothromb Time International Ratio 1.7 (0.8-1.1) Sodium Level 144 mmol/L (136-145) Potassium Level 4.0 mmol/L (3.5-5.1) Chloride Level 108 mmol/L (98-107) Carbon Dioxide Level 29 mmol/L (21-32) Anion Gap 7 (6-14) Blood Urea Nitrogen 23 mg/dL (7-20) Creatinine 1.4 mg/dL (0.6-1.0) Estimated GFR (Cockcroft-Gault) 35.6 BUN/Creatinine Ratio 16 (6-20) Glucose Level 86 mg/dL (70-99) Calcium Level 8.2 mg/dL (8.5-10.1) Total Bilirubin 0.8 mg/dL (0.2-1.0) Aspartate Amino Transf (AST/SGOT) 45 U/L (15-37) Alanine Aminotransferase (ALT/SGPT) 29 U/L (14-59) Alkaline Phosphatase 180 U/L (46-116) Total Protein 5.7 g/dL (6.4-8.2) Albumin 2.8 g/dL (3.4-5.0) Albumin/Globulin Ratio 1.0 (1.0-1.7) Medications Current Medications Acetaminophen (Tylenol) 1,000 mg 1X ONCE PO Last administered on 05/25/19at 16:23; Start 05/25/19 at 16:00; Stop 05/25/19 at 16:01; Status DC Fentanyl Citrate (Fentanyl 2ml Vial) 25 mcg 1X ONCE IV Last administered on 05/25/19 16:23; Start 05/25/19 at 16:15; Stop 05/25/19 at 16:16; Status DC Amiodarone HCl (Cordarone) 200 mg DAILY PO Last administered on 05/28/19at 13:33; Start 05/26/19 at 09:00 Aspirin (Children'S Aspirin) 81 mg DAILY PO Last administered on 05/28/19at 13:33; Start 05/26/19 at 09:00 Bisacodyl (Dulcolax Supp) 10 mg PRN DAILY PRN AR CONSTIPATION; Start 05/25/19 at 19:30 Cyclobenzaprine HCl (Flexeril) 5 mg PRN Q12HR PRN PO MUSCLE SPASMS; Start 05/25/19 at 19:30 EZETIMIBE (Zetia) 10 mg QEVNG PO Last administered on 05/28/19 17:31; Start 05/26/19 at 18:00 Gabapentin (Neurontin) 100 mg HS PO Last administered on 05/27/19 21:20; Start 05/25/19 at 21:00 Acetaminophen/ Hydrocodone Bitart (Lortab 5/325) 1 tab PRN Q4HRS PRN PO MODERATE PAIN Last administered on 05/28/19 13:33; Start 05/25/19 at 19:30 Lisinopril (Prinivil) 10 mg DAILY PO Last administered on 05/28/19 13:33; Start 05/26/19 at 09:00 Pantoprazole Sodium (Protonix) 40 mg DAILYAC PO Last administered on 05/28/19 13:33; Start 05/26/19 at 07:30 Fentanyl Citrate (Fentanyl 2ml Vial) 25 mcg 1X ONCE IV Last administered on 05/25/19 19:46; Start 05/25/19 at 19:45; Stop 05/25/19 at 19:46; Status DC Phytonadione (Mephyton Oral Soln) 5 mg 1X ONCE PO Last administered on 05/25/19 21:04; Start 05/25/19 at 20:15; Stop 05/25/19 at 20:16; Status DC Vitamin D (Vitamin D3) 5,000 unit DAILY PO Last administered on 05/28/19 13:33; Start 05/26/19 at 09:00 Tizanidine HCl (Zanaflex) 2 mg HS PO Last administered on 05/27/19 21:20; Start 05/26/19 at 21:00 Tizanidine HCl (Zanaflex) 2 mg 1X ONCE PO Last administered on 05/26/19 02:29; Start 05/25/19 at 23:55; Stop 05/25/19 at 23:57; Status DC Polysaccharide Iron Complex (Niferex 150) 150 mg BID PO Last administered on 05/28/19 13:33; Start 05/26/19 at 21:00 Lidocaine (Lidoderm) 1 patch DAILY TD Last administered on 05/28/19 13:33; Start 05/26/19 at 10:00 Miscellaneous (Lidoderm Patch Removal) 1 ea QHS MC Last administered on 05/26/19at 20:58; Start 05/26/19 at 21:00 Phytonadione (Vitamin K Ampule) 5 mg 1X ONCE SQ Last administered on 05/26/19at 17:20; Start 05/26/19 at 16:00; Stop 05/26/19 at 16:01; Status DC Polyethylene Glycol (miraLAX PACKET) 17 gm DAILY PO Last administered on 05/28/19at 15:46; Start 05/27/19 at 16:00 Phytonadione (Vitamin K Ampule) 5 mg 1X ONCE SQ Last administered on 05/27/19at 22:00; Start 05/27/19 at 20:15; Stop 05/27/19 at 20:16; Status DC Lidocaine/Sodium Bicarbonate (Buffered Lidocaine 1%) 3 ml STK-MED ONCE .ROUTE ; Start 05/28/19 at 09:23; Stop 05/28/19 at 09:23; Status DC Cefazolin Sodium 50 ml @ As Directed STK-MED ONCE IV ; Start 05/28/19 at 09:51; Stop 05/28/19 at 09:51; Status DC Midazolam HCl (Versed) 2 mg STK-MED ONCE .ROUTE ; Start 05/28/19 at 09:51; Stop 05/28/19 at 09:51; Status DC Fentanyl Citrate (Fentanyl 2ml Vial) 100 mcg STK-MED ONCE .ROUTE ; Start 05/28/19 at 09:51; Stop 05/28/19 at 09:51; Status DC Lidocaine/Sodium Bicarbonate (Buffered Lidocaine 1%) 6 ml 1X ONCE IJ Last administered on 05/28/19at 10:46; Start 05/28/19 at 10:45; Stop 05/28/19 at 10:46; Status DC Midazolam HCl (Versed) 2 mg 1X ONCE IV Last administered on 05/28/19at 10:41; Start 05/28/19 at 10:45; Stop 05/28/19 at 10:46; Status DC Fentanyl Citrate (Fentanyl 2ml Vial) 100 mcg 1X ONCE IV Last administered on 05/28/19at 10:41; Start 05/28/19 at 10:45; Stop 05/28/19 at 10:46; Status DC Cefazolin Sodium 50 ml @ 100 mls/hr 1X ONCE IV Last administered on 05/28/19at 10:46; Start 05/28/19 at 10:45; Stop 05/28/19 at 11:14; Status DC Warfarin Sodium (Coumadin) 2.5 mg 1X WARF ONCE PO Last administered on 05/28/19at 17:31; Start 05/28/19 at 18:00; Stop 05/28/19 at 18:01; Status DC Warfarin Sodium (Coumadin Per Pharmacy) 1 each PRN DAILY PRN MC SEE COMMENTS [facility] administered on 05/28/19at 17:49; Start 05/28/19 at 17:00 Active Scripts Active [Pantoprazole] 40 MG Tablet.dr 40 Mg PO DAILYAC 30 Days Bisacodyl 10 Mg Supp.rect 10 Mg AR PRN DAILY PRN 14 Days Hydrocodone-Apap 5-325 (Hydrocodone Bit/Acetaminophen) 1 Tab Tablet 1 Tab PO PRN Q4HRS PRN 14 Days Cyclobenzaprine Hcl 10 Mg Tablet 5 Mg PO PRN Q12HR PRN 7 Days Reported Tizanidine Hcl 2 Mg Capsule 2 Mg PO HS Warfarin Sodium 2.5 Mg Tablet 2.5 Mg PO CONT PRN Amiodarone Hcl 200 Mg Tablet 1 Tab PO DAILY Aspirin 81 Mg Tab.chew 1 Tab PO DAILY Lisinopril 10 Mg Tablet 1 Tab PO DAILY Zetia (Ezetimibe) 10 Mg Tablet 10 Mg PO QEVNG Multivitamins (Multivitamin) 1 Each Tablet 1 Tab PO DAILY Calcium 600 + Vit D 200 Tablet (Calcium Carbonate/Vitamin D3) 1 Each Tablet 1 Each PO QEVNG Gabapentin (Gabapentin) 100 Mg Capsule 100 Mg PO HS Vitals/I & O Vital Sign - Last 24 Hours 05/27/19 05/27/19 05/27/19 05/28/19 19:10 20:00 22:46 03:15 Temp 97.9 98.4 97.4 97.9 98.4 97.4 Pulse 68 69 73 Resp 16 18 20 B/P (MAP) 115/49 (71) 102/52 (69) 153/68 (96) Pulse Ox 95 95 94 O2 Delivery Room Air Room Air Room Air Room Air 05/28/19 05/28/19 05/28/19 05/28/19 05:05 07:55 08:00 09:55 Temp 98.3 98.3 Pulse 66 Resp 18 B/P (MAP) 153/62 (92) Pulse Ox 94 95 O2 Delivery Room Air Room Air Room Air Nasal Cannula O2 Flow Rate 2.0 05/28/19 05/28/19 05/28/19 05/28/19 10:00 10:05 10:10 10:15 Pulse 76 68 73 66 Resp 17 Pulse Ox 100 100 100 100 O2 Delivery Nasal Cannula Nasal Cannula Nasal Cannula Nasal Cannula O2 Flow Rate 2.0 2.0 2.0 2.0 05/28/19 05/28/19 05/28/19 05/28/19 10:20 10:25 10:30 10:35 Pulse 68 64 64 65 Resp 11 20 17 13 Pulse Ox 100 100 100 100 O2 Delivery Nasal Cannula Nasal Cannula Nasal Cannula Nasal Cannula O2 Flow Rate 2.0 2.0 2.0 2.0 05/28/19 05/28/19 05/28/19 05/28/19 10:40 10:41 10:47 11:15 Temp 97.7 97.7 Pulse 71 67 75 Resp 22 18 B/P (MAP) 139/63 (88) Pulse Ox 99 100 99 94 O2 Delivery Nasal Cannula Nasal Cannula Nasal Cannula Room Air O2 Flow Rate 2.0 2.0 2.0 05/28/19 05/28/19 05/28/19 05/28/19 11:30 11:45 12:01 12:30 Pulse 65 66 63 63 B/P (MAP) 135/57 (83) 141/63 (89) 147/59 (88) 153/66 (95) 05/28/19 05/28/19 05/28/19 05/28/19 13:00 13:24 13:33 13:33 Pulse 70 75 Resp 18 B/P (MAP) 159/70 (99) 139/63 (88) 139/63 Pulse Ox 94 O2 Delivery Room Air 05/28/19 05/28/19 05/28/19 05/28/19 13:33 15:47 15:50 17:55 Temp 98.2 98.2 Pulse 75 68 Resp 18 18 18 B/P (MAP) 139/63 112/43 (66) Pulse Ox 96 96 96 O2 Delivery Room Air Room Air Room Air Intake and Output 05/27/19 05/27/19 05/28/19 14:59 22:59 06:59 Intake Total 0 ml 400 ml 480 ml Balance 0 ml 400 ml 480 ml Nutrition Consultation Dietary Evaluation: Recommendations by RD: Increase Calorie Intake, Protein supplementation Comments: REC regular diet with chocolate ensure tid Expected Outcomes/Goals: to meet > 75% est nutr needs Malnutrition Findings: Muscle Mass (Severe): Severe Depletion Body Fat Depletion (Non Severe: Mod to Severe Weight Status: Underweight MARIELENA RODRIGUEZ MD May 28, 2019 18:07
[2019-05-28] MEDS: tiZANidine 4 MG TABLET. PO SCH (20:59)
[2019-05-28] MEDS: GABAPENTIN 100 MG CAPSULE. PO SCH (21:00)
[2019-05-28] MEDS: PATCH REMOVAL. MC SCH (21:00)
[2019-05-29] VITALS (7 sets, daily range): BP systolic 82–134; BP diastolic 47–62
[2019-05-29 05:28] LABS: BASO % 1 % (0-3); EOS # 0.2 x10^3/uL (0.0-0.7); EOS % 5 % (0-3); HEMATOCRIT 27.6 % (36.0-47.0); HEMOGLOBIN 8.7 g/dL (12.0-15.5); LYMPH # 0.5 x10^3/uL (1.0-4.8); LYMPH % 14 % (24-48); MEAN CORPUSCULAR HEMOGLOBIN 28 pg (25-35); MEAN CORPUSCULAR HGB CONC 32 g/dL (31-37); MEAN CORPUSCULAR VOLUME 88 fL (79-100); MONO # 0.3 x10^3/uL (0.0-1.1); MONO % 9 % (0-9); NEUT # 2.7 x10^3/uL (1.8-7.7); NEUT % 73 % (31-73); PLATELET COUNT 162 x10^3/uL (140-400); RED BLOOD COUNT 3.15 x10^6/uL (3.50-5.40); RED CELL DISTRIBUTION WIDTH 19.1 % (11.5-14.5); WHITE BLOOD COUNT 3.7 x10^3/uL (4.0-11.0)
[2019-05-29 05:34] LABS: PROTHROMBIN TIME PATIENT 16.9 SEC (11.7-14.0)
[2019-05-29 05:41] LABS: CALCIUM 8.4 mg/dL (8.5-10.1); CREATININE 1.4 mg/dL (0.6-1.0); GFR 35.6; POTASSIUM 3.9 mmol/L (3.5-5.1)
[2019-05-29] MEDS: PANTOPRAZOLE 40 MG TABLET.DR. PO SCH (08:05)
[2019-05-29] MEDS: HYDROcodone/APAP 5/325MG 1 TAB TABLET PO PRN ×2 (08:05→19:53)
[2019-05-29] MEDS: LIDOCAINE (700MG/PATCH) PATCH. TD SCH (08:08)
--- NOTE | 2019-05-29 08:55 | NUR ---
Late note: Discussed with pt yesterday as she is in copay for SNU and pt states she can't afford it. Pt agreeable to continue home health with [facility] upon dc. RN and Physician notified.
[2019-05-29] MEDS: ASPIRIN CHEWABLE 81 MG TABLET. PO SCH (09:43)
[2019-05-29] MEDS: AMIODARONE HCL 200 MG TABLET. PO SCH (09:44)
[2019-05-29] MEDS: LISINOPRIL 10 MG TABLET PO SCH (09:44)
[2019-05-29] MEDS: CHOLECALCIFEROL (VITAMIN D3) 5,000 UNIT CAPSULE PO SCH (09:44)
[2019-05-29] MEDS: IRON POLYSACCHARIDE COMPLEX 150 MG CAPSULE PO SCH ×2 (09:44→21:49)
[2019-05-29] MEDS: POLYETHYLENE GLYCOL 3350 17 GM PACKET. PO SCH ×2 (09:45→21:50)
--- NOTE | 2019-05-29 10:23 | PDOC ---
PROGRESS NOTES Subjective Subjective She feels better. She is constipated. She is not sure that she can manage at home. Objective Objective Vital Signs Date Time Temp Pulse Resp B/P (MAP) Pulse Ox O2 Delivery O2 Flow Rate FiO2 05/29/19 09:47 72 134/57 05/29/19 08:57 98.4 24 96 Room Air 98.4 05/28/19 10:47 2.0 Intake and Output 05/29/19 07:00 Intake Total 520 ml Balance 520 ml Intake Oral 520 ml # Voids 3 Physical Exam Physical Exam She is alert,sitting in bedside chair but she got up by herself and walked with roller walker with antalgic gait and she requires some assistance in coming to a sitting position from lying in bed. Assessment Assessment Problems Medical Problems: (1) Elevated INR Status: Acute (2) Sacral fracture Status: Acute (3) T12 compression fracture Status: Acute Plan Plan of Care To SNF for continued physical and occupational therapy follow up when medically stable. Comment Review of Relevant I have reviewed the following items jaziel (where applicable) has been applied. Labs Laboratory Tests Test 05/28/19 03:40 05/29/19 04:45 Prothrombin Time 20.0 SEC (11.7-14.0) 16.9 SEC (11.7-14.0) Prothromb Time International Ratio 1.7 (0.8-1.1) 1.4 (0.8-1.1) Sodium Level 144 mmol/L (136-145) 142 mmol/L (136-145) Potassium Level 4.0 mmol/L (3.5-5.1) 3.9 mmol/L (3.5-5.1) Chloride Level 108 mmol/L (98-107) 106 mmol/L (98-107) Carbon Dioxide Level 29 mmol/L (21-32) 29 mmol/L (21-32) Anion Gap 7 (6-14) 7 (6-14) Blood Urea Nitrogen 23 mg/dL (7-20) 20 mg/dL (7-20) Creatinine 1.4 mg/dL (0.6-1.0) 1.4 mg/dL (0.6-1.0) Estimated GFR (Cockcroft-Gault) 35.6 35.6 BUN/Creatinine Ratio 16 (6-20) Glucose Level 86 mg/dL (70-99) 97 mg/dL (70-99) Calcium Level 8.2 mg/dL (8.5-10.1) 8.4 mg/dL (8.5-10.1) Total Bilirubin 0.8 mg/dL (0.2-1.0) Aspartate Amino Transf (AST/SGOT) 45 U/L (15-37) Alanine Aminotransferase (ALT/SGPT) 29 U/L (14-59) Alkaline Phosphatase 180 U/L (46-116) Total Protein 5.7 g/dL (6.4-8.2) Albumin 2.8 g/dL (3.4-5.0) Albumin/Globulin Ratio 1.0 (1.0-1.7) White Blood Count 3.7 x10^3/uL (4.0-11.0) Red Blood Count 3.15 x10^6/uL (3.50-5.40) Hemoglobin 8.7 g/dL (12.0-15.5) Hematocrit 27.6 % (36.0-47.0) Mean Corpuscular Volume 88 fL (79-100) Mean Corpuscular Hemoglobin 28 pg (25-35) Mean Corpuscular Hemoglobin Concent 32 g/dL (31-37) Red Cell Distribution Width 19.1 % (11.5-14.5) Platelet Count 162 x10^3/uL (140-400) Neutrophils (%) (Auto) 73 % (31-73) Lymphocytes (%) (Auto) 14 % (24-48) Monocytes (%) (Auto) 9 % (0-9) Eosinophils (%) (Auto) 5 % (0-3) Basophils (%) (Auto) 1 % (0-3) Neutrophils # (Auto) 2.7 x10^3/uL (1.8-7.7) Lymphocytes # (Auto) 0.5 x10^3/uL (1.0-4.8) Monocytes # (Auto) 0.3 x10^3/uL (0.0-1.1) Eosinophils # (Auto) 0.2 x10^3/uL (0.0-0.7) Basophils # (Auto) 0.0 x10^3/uL (0.0-0.2) Laboratory Tests Test 05/29/19 04:45 White Blood Count 3.7 x10^3/uL (4.0-11.0) Red Blood Count 3.15 x10^6/uL (3.50-5.40) Hemoglobin 8.7 g/dL (12.0-15.5) Hematocrit 27.6 % (36.0-47.0) Mean Corpuscular Volume 88 fL (79-100) Mean Corpuscular Hemoglobin 28 pg (25-35) Mean Corpuscular Hemoglobin Concent 32 g/dL (31-37) Red Cell Distribution Width 19.1 % (11.5-14.5) Platelet Count 162 x10^3/uL (140-400) Neutrophils (%) (Auto) 73 % (31-73) Lymphocytes (%) (Auto) 14 % (24-48) Monocytes (%) (Auto) 9 % (0-9) Eosinophils (%) (Auto) 5 % (0-3) Basophils (%) (Auto) 1 % (0-3) Neutrophils # (Auto) 2.7 x10^3/uL (1.8-7.7) Lymphocytes # (Auto) 0.5 x10^3/uL (1.0-4.8) Monocytes # (Auto) 0.3 x10^3/uL (0.0-1.1) Eosinophils # (Auto) 0.2 x10^3/uL (0.0-0.7) Basophils # (Auto) 0.0 x10^3/uL (0.0-0.2) Prothrombin Time 16.9 SEC (11.7-14.0) Prothromb Time International Ratio 1.4 (0.8-1.1) Sodium Level 142 mmol/L (136-145) Potassium Level 3.9 mmol/L (3.5-5.1) Chloride Level 106 mmol/L (98-107) Carbon Dioxide Level 29 mmol/L (21-32) Anion Gap 7 (6-14) Blood Urea Nitrogen 20 mg/dL (7-20) Creatinine 1.4 mg/dL (0.6-1.0) Estimated GFR (Cockcroft-Gault) 35.6 Glucose Level 97 mg/dL (70-99) Calcium Level 8.4 mg/dL (8.5-10.1) Medications Current Medications Acetaminophen (Tylenol) 1,000 mg 1X ONCE PO Last administered on 05/25/19 16:23; Start 05/25/19 at 16:00; Stop 05/25/19 at 16:01; Status DC Fentanyl Citrate (Fentanyl 2ml Vial) 25 mcg 1X ONCE IV Last administered on 05/25/19 16:23; Start 05/25/19 at 16:15; Stop 05/25/19 at 16:16; Status DC Amiodarone HCl (Cordarone) 200 mg DAILY PO Last administered on 05/29/19 09:45; Start 05/26/19 at 09:00 Aspirin (Children'S Aspirin) 81 mg DAILY PO Last administered on 05/29/19 09:45; Start 05/26/19 at 09:00 Bisacodyl (Dulcolax Supp) 10 mg PRN DAILY PRN NM CONSTIPATION; Start 05/25/19 at 19:30 Cyclobenzaprine HCl (Flexeril) 5 mg PRN Q12HR PRN PO MUSCLE SPASMS; Start 05/25/19 at 19:30 EZETIMIBE (Zetia) 10 mg QEVNG PO Last administered on 05/28/19 17:31; Start 05/26/19 at 18:00 Gabapentin (Neurontin) 100 mg HS PO Last administered on 05/28/19 21:00; Start 05/25/19 at 21:00 Acetaminophen/ Hydrocodone Bitart (Lortab 5/325) 1 tab PRN Q4HRS PRN PO MODERATE PAIN Last administered on 05/29/19 08:05; Start 05/25/19 at 19:30 Lisinopril (Prinivil) 10 mg DAILY PO Last administered on 05/29/19at 09:47; Start 05/26/19 at 09:00 Pantoprazole Sodium (Protonix) 40 mg DAILYAC PO Last administered on 05/29/19 08:05; Start 05/26/19 at 07:30 Fentanyl Citrate (Fentanyl 2ml Vial) 25 mcg 1X ONCE IV Last administered on 05/25/19 19:46; Start 05/25/19 at 19:45; Stop 05/25/19 at 19:46; Status DC Phytonadione (Mephyton Oral Soln) 5 mg 1X ONCE PO Last administered on 05/25/19 21:04; Start 05/25/19 at 20:15; Stop 05/25/19 at 20:16; Status DC Vitamin D (Vitamin D3) 5,000 unit DAILY PO Last administered on 05/29/19at 09:45; Start 05/26/19 at 09:00 Tizanidine HCl (Zanaflex) 2 mg HS PO Last administered on 05/28/19at 21:00; Start 05/26/19 at 21:00 Tizanidine HCl (Zanaflex) 2 mg 1X ONCE PO Last administered on 05/26/19at 02:29; Start 05/25/19 at 23:55; Stop 05/25/19 at 23:57; Status DC Polysaccharide Iron Complex (Niferex 150) 150 mg BID PO Last administered on 05/29/19 09:45; Start 05/26/19 at 21:00 Lidocaine (Lidoderm) 1 patch DAILY TD Last administered on 05/29/19at 08:08; Start 05/26/19 at 10:00 Miscellaneous (Lidoderm Patch Removal) 1 ea QHS MC Last administered on 05/28/19at 21:00; Start 05/26/19 at 21:00 Phytonadione (Vitamin K Ampule) 5 mg 1X ONCE SQ Last administered on 05/26/19at 17:20; Start 05/26/19 at 16:00; Stop 05/26/19 at 16:01; Status DC Polyethylene Glycol (miraLAX PACKET) 17 gm DAILY PO Last administered on 05/29/19at 09:45; Start 05/27/19 at 16:00 Phytonadione (Vitamin K Ampule) 5 mg 1X ONCE SQ Last administered on 05/27/19at 22:00; Start 05/27/19 at 20:15; Stop 05/27/19 at 20:16; Status DC Lidocaine/Sodium Bicarbonate (Buffered Lidocaine 1%) 3 ml STK-MED ONCE .ROUTE ; Start 05/28/19 at 09:23; Stop 05/28/19 at 09:23; Status DC Cefazolin Sodium 50 ml @ As Directed STK-MED ONCE IV ; Start 05/28/19 at 09:51; Stop 05/28/19 at 09:51; Status DC Midazolam HCl (Versed) 2 mg STK-MED ONCE .ROUTE ; Start 05/28/19 at 09:51; Stop 05/28/19 at 09:51; Status DC Fentanyl Citrate (Fentanyl 2ml Vial) 100 mcg STK-MED ONCE .ROUTE ; Start 05/28/19 at 09:51; Stop 05/28/19 at 09:51; Status DC Lidocaine/Sodium Bicarbonate (Buffered Lidocaine 1%) 6 ml 1X ONCE IJ Last administered on 05/28/19at 10:46; Start 05/28/19 at 10:45; Stop 05/28/19 at 10:46; Status DC Midazolam HCl (Versed) 2 mg 1X ONCE IV Last administered on 05/28/19at 10:41; Start 05/28/19 at 10:45; Stop 05/28/19 at 10:46; Status DC Fentanyl Citrate (Fentanyl 2ml Vial) 100 mcg 1X ONCE IV Last administered on 05/28/19at 10:41; Start 05/28/19 at 10:45; Stop 05/28/19 at 10:46; Status DC Cefazolin Sodium 50 ml @ 100 mls/hr 1X ONCE IV Last administered on 05/28/19at 10:46; Start 05/28/19 at 10:45; Stop 05/28/19 at 11:14; Status DC Warfarin Sodium (Coumadin) 2.5 mg 1X WARF ONCE PO Last administered on 05/28/19at 17:31; Start 05/28/19 at 18:00; Stop 05/28/19 at 18:01; Status DC Warfarin Sodium (Coumadin Per Pharmacy) 1 each PRN DAILY PRN MC SEE COMMENTS Last administered on 05/28/19at 18:05; Start 05/28/19 at 17:00 Active Scripts Active [Pantoprazole] 40 MG Tablet.dr 40 Mg PO DAILYAC 30 Days Bisacodyl 10 Mg Supp.rect 10 Mg NM PRN DAILY PRN 14 Days Hydrocodone-Apap 5-325 (Hydrocodone Bit/Acetaminophen) 1 Tab Tablet 1 Tab PO PRN Q4HRS PRN 14 Days Cyclobenzaprine Hcl 10 Mg Tablet 5 Mg PO PRN Q12HR PRN 7 Days Reported Tizanidine Hcl 2 Mg Capsule 2 Mg PO HS Warfarin Sodium 2.5 Mg Tablet 2.5 Mg PO CONT PRN Amiodarone Hcl 200 Mg Tablet 1 Tab PO DAILY Aspirin 81 Mg Tab.chew 1 Tab PO DAILY Lisinopril 10 Mg Tablet 1 Tab PO DAILY Zetia (Ezetimibe) 10 Mg Tablet 10 Mg PO QEVNG Multivitamins (Multivitamin) 1 Each Tablet 1 Tab PO DAILY Calcium 600 + Vit D 200 Tablet (Calcium Carbonate/Vitamin D3) 1 Each Tablet 1 Each PO QEVNG Gabapentin (Gabapentin) 100 Mg Capsule 100 Mg PO HS Vitals/I & O Vital Sign - Last 24 Hours 05/28/19 05/28/19 05/28/19 05/28/19 10:25 10:30 10:35 10:40 Pulse 64 64 65 71 Resp 20 17 13 22 Pulse Ox 100 100 100 99 O2 Delivery Nasal Cannula Nasal Cannula Nasal Cannula Nasal Cannula O2 Flow Rate 2.0 2.0 2.0 2.0 05/28/19 05/28/19 05/28/19 05/28/19 10:41 10:47 11:15 11:30 Temp 97.7 97.7 Pulse 67 75 65 Resp 17 13 18 B/P (MAP) 139/63 (88) 135/57 (83) Pulse Ox 100 99 94 O2 Delivery Nasal Cannula Nasal Cannula Room Air O2 Flow Rate 2.0 2.0 05/28/19 05/28/19 05/28/19 05/28/19 11:45 12:01 12:30 13:00 Pulse 66 63 63 70 B/P (MAP) 141/63 (89) 147/59 (88) 153/66 (95) 159/70 (99) 05/28/19 05/28/19 05/28/19 05/28/19 13:24 13:33 13:33 13:33 Pulse 75 75 Resp 18 B/P (MAP) 139/63 (88) 139/63 139/63 Pulse Ox 94 O2 Delivery Room Air 05/28/19 05/28/19 05/28/19 05/28/19 15:47 15:50 17:55 19:48 Temp 98.2 97.8 98.2 97.8 Pulse 68 76 Resp 18 18 18 18 B/P (MAP) 112/43 (66) 105/44 (64) Pulse Ox 96 96 96 96 O2 Delivery Room Air Room Air Room Air Room Air 05/28/19 05/28/19 05/29/19 05/29/19 20:05 23:30 03:28 07:00 Temp 97.5 97.5 98.4 97.5 97.5 98.4 Pulse 66 66 72 Resp 18 16 24 B/P (MAP) 109/52 (71) 130/62 (84) 134/57 (82) Pulse Ox 96 97 96 O2 Delivery Room Air Room Air Room Air Room Air 05/29/19 05/29/19 05/29/19 05/29/19 08:05 08:57 09:45 09:47 Temp 98.4 98.4 Pulse 72 72 72 Resp 18 24 B/P (MAP) 134/57 (82) 134/57 134/57 Pulse Ox 97 96 O2 Delivery Room Air Room Air Intake and Output 05/28/19 05/28/19 05/29/19 15:00 23:00 07:00 Intake Total 0 ml 420 ml 100 ml Balance 0 ml 420 ml 100 ml Nutrition Consultation Dietary Evaluation: Recommendations by RD: Increase Calorie Intake, Protein supplementation Comments: REC continue chocolate ensure tid Expected Outcomes/Goals: to meet > 75% est nutr needs- met at times,goal ongoing Malnutrition Findings: Muscle Mass (Severe): Severe Depletion Body Fat Depletion (Non Severe: Mod to Severe Weight Status: Underweight MARIELENA RODRIGUEZ MD May 29, 2019 10:23
--- NOTE | 2019-05-29 13:09 | PDOC ---
[facility] PROGRESS NOTE Chief Complaint Chief Complaint Elevated INR Recent hx L hip replacement surgery CKD4 Anemia of CKD AFib CAD HTN Hyperlipidemia Valve insufficiency History of Present Illness History of Present Illness 05/29/19 Pt seen/examined at bedside Pt alert and seems to be in less pain today following sacroplasty INR is trending down with it initially being 5.9 but down to 1.4 today 05/28/19 Pt seen/examined at bedside Clean/dry/intact L hip wound from hip replacement surgery Pt alert and asking when procedure would occur today (sacroplasty) Called IR who was on the way up Vitals/I&O Vitals/I&O: Vital Signs Date Time Temp Pulse Resp B/P (MAP) Pulse Ox O2 Delivery O2 Flow Rate FiO2 05/29/19 11:41 98.6 73 18 119/57 (77) 95 Room Air 98.6 05/28/19 10:47 2.0 I & O 05/28/19 05/28/19 05/29/19 14:59 22:59 06:59 Intake Total 0 ml 420 ml 100 ml Balance 0 ml 420 ml 100 ml Physical Exam General: Alert, Cooperative, No acute distress Heart: Regular rate, Normal S1, Normal S2 Lungs: Clear Abdomen: Normal bowel sounds, Soft Extremities: No clubbing, No cyanosis, Normal pulses Skin: No rashes, No breakdown Labs Labs: Laboratory Tests Test 05/29/19 04:45 White Blood Count 3.7 x10^3/uL (4.0-11.0) Red Blood Count 3.15 x10^6/uL (3.50-5.40) Hemoglobin 8.7 g/dL (12.0-15.5) Hematocrit 27.6 % (36.0-47.0) Mean Corpuscular Volume 88 fL (79-100) Mean Corpuscular Hemoglobin 28 pg (25-35) Mean Corpuscular Hemoglobin Concent 32 g/dL (31-37) Red Cell Distribution Width 19.1 % (11.5-14.5) Platelet Count 162 x10^3/uL (140-400) Neutrophils (%) (Auto) 73 % (31-73) Lymphocytes (%) (Auto) 14 % (24-48) Monocytes (%) (Auto) 9 % (0-9) Eosinophils (%) (Auto) 5 % (0-3) Basophils (%) (Auto) 1 % (0-3) Neutrophils # (Auto) 2.7 x10^3/uL (1.8-7.7) Lymphocytes # (Auto) 0.5 x10^3/uL (1.0-4.8) Monocytes # (Auto) 0.3 x10^3/uL (0.0-1.1) Eosinophils # (Auto) 0.2 x10^3/uL (0.0-0.7) Basophils # (Auto) 0.0 x10^3/uL (0.0-0.2) Prothrombin Time 16.9 SEC (11.7-14.0) Prothromb Time International Ratio 1.4 (0.8-1.1) Sodium Level 142 mmol/L (136-145) Potassium Level 3.9 mmol/L (3.5-5.1) Chloride Level 106 mmol/L (98-107) Carbon Dioxide Level 29 mmol/L (21-32) Anion Gap 7 (6-14) Blood Urea Nitrogen 20 mg/dL (7-20) Creatinine 1.4 mg/dL (0.6-1.0) Estimated GFR (Cockcroft-Gault) 35.6 Glucose Level 97 mg/dL (70-99) Calcium Level 8.4 mg/dL (8.5-10.1) Review of Systems Review of Systems: No CO pain No confusion No SOB Assessment and Plan Assessmemt and Plan Problems Medical Problems: (1) Elevated INR Status: Acute (2) Sacral fracture Status: Acute (3) T12 compression fracture Status: Acute Assessment Elevated INR Recent hx L hip replacement surgery CKD4 Anemia of CKD AFib CAD HTN Hyperlipidemia Valve insufficiency Plan Coumadin DVT prophylaxis Home meds PT/OT Possible D/C to SNU or home with home health Comment Review of Relevant I have reviewed the following items jaziel (where applicable) has been applied. Medications: Current Medications Medications (Trade) Dose Ordered Sig/Jacob Route PRN Reason Start Time Stop Time Status Last Admin Dose Admin Warfarin Sodium (Coumadin) 2.5 mg 1X WARF ONCE PO 05/28/19 18:00 05/28/19 18:01 DC 05/28/19 17:31 Warfarin Sodium (Coumadin Per Pharmacy) 1 each PRN DAILY PRN MC SEE COMMENTS 05/28/19 17:00 05/28/19 18:05 CHIQUIS THAYER III DO May 29, 2019 13:09
--- NOTE | 2019-05-29 13:09 | PDOC ---
Subjective: Subjective: Has no GI complaints for me. Objective: Objective: Other notes mention constipation. Vital Signs: Vital Signs Date Time Temp Pulse Resp B/P (MAP) Pulse Ox O2 Delivery O2 Flow Rate FiO2 05/29/19 11:41 98.6 73 18 119/57 (77) 95 Room Air 98.6 05/28/19 10:47 2.0 Labs: Laboratory Tests Test 05/29/19 04:45 White Blood Count 3.7 x10^3/uL Red Blood Count 3.15 x10^6/uL Hemoglobin 8.7 g/dL Hematocrit 27.6 % Mean Corpuscular Volume 88 fL Mean Corpuscular Hemoglobin 28 pg Mean Corpuscular Hemoglobin Concent 32 g/dL Red Cell Distribution Width 19.1 % Platelet Count 162 x10^3/uL Neutrophils (%) (Auto) 73 % Lymphocytes (%) (Auto) 14 % Monocytes (%) (Auto) 9 % Eosinophils (%) (Auto) 5 % Basophils (%) (Auto) 1 % Neutrophils # (Auto) 2.7 x10^3/uL Lymphocytes # (Auto) 0.5 x10^3/uL Monocytes # (Auto) 0.3 x10^3/uL Eosinophils # (Auto) 0.2 x10^3/uL Basophils # (Auto) 0.0 x10^3/uL Prothrombin Time 16.9 SEC Prothromb Time International Ratio 1.4 Sodium Level 142 mmol/L Potassium Level 3.9 mmol/L Chloride Level 106 mmol/L Carbon Dioxide Level 29 mmol/L Anion Gap 7 Blood Urea Nitrogen 20 mg/dL Creatinine 1.4 mg/dL Estimated GFR (Cockcroft-Gault) 35.6 Glucose Level 97 mg/dL Calcium Level 8.4 mg/dL PE: GEN: walking in room w/ therapy - asks who I am LUNGS: room air NEURO/PSYCH: A & O �3 A/P: S/p vertebroplasty Coumadin coagulopathy - resolved ELLA, hemoccult positive - stable Hematuria, CKD Constipation -- Treat constipation more aggressively. Continue iron and PPI. Have discussed outpt EGD and colonoscopy - she will consider. DORIE HAN May 29, 2019 13:09
[2019-05-29] MEDS ORDERED: BISACODYL 5 MG TABLET.DR. PO ONE (13:15)
--- NOTE | 2019-05-29 13:44 | NUR ---
SW consulted for eval at [facility]. Referral faxed to [facility]. Pt acceptance and admission pending.
--- NOTE | 2019-05-29 14:13 | NUR ---
Pharmacy Warfarin Dosing Note S:Pharmacy consulted to assist with anticoagulation therapy started with target INR: 2 -3 O:ADDISON GARCIA is a 89 year old F with Atrial Fibrillation LABS: Last INR: 1.4 Last HGB: 8.7 Last HCT: 27.6 Last PLT: 162 Last dose of 2.5 mg given on 05/28/19 at 1731 Previous Regimen: 5 mg Saturday and and 2.5 mg the rest of the week Vitamin K given: Y 05/26 and 05/27 Drug Interaction Changes: Same Interacting Drug Ongoing Drug Interactions: Amiodarone, Aspirin A:INR of 1.4 is below desired range. Target range for this patient is: 2 -3 P: Warfarin dose: 5 mg Today at 1600 Bridge Therapy: None Next INR due IN AM Pharmacy anticoagulation service will continue to follow. MARKO SNOW [facility], 05/29/19 [id number]
[2019-05-29] MEDS ORDERED: WARFARIN 5 MG TABLET. PO ONE (16:00)
--- NOTE | 2019-05-29 16:23 | PDOC ---
Renal-Progress Notes Subjective Notes Notes NO NEW COMPLAINTS History of Present Illness Hx of present illness STABLE Vitals Vitals Vital Signs Date Time Temp Pulse Resp B/P (MAP) Pulse Ox O2 Delivery O2 Flow Rate FiO2 05/29/19 15:37 97.9 86 20 125/56 (79) 99 Room Air 97.9 05/28/19 10:47 2.0 Weight Weight [ ] I.O. Intake and Output Intake and Output 05/29/19 06:59 Intake Total 520 ml Balance 520 ml Intake Oral 520 ml # Voids 3 Labs Labs Laboratory Tests Test 05/29/19 04:45 White Blood Count 3.7 x10^3/uL (4.0-11.0) Red Blood Count 3.15 x10^6/uL (3.50-5.40) Hemoglobin 8.7 g/dL (12.0-15.5) Hematocrit 27.6 % (36.0-47.0) Mean Corpuscular Volume 88 fL (79-100) Mean Corpuscular Hemoglobin 28 pg (25-35) Mean Corpuscular Hemoglobin Concent 32 g/dL (31-37) Red Cell Distribution Width 19.1 % (11.5-14.5) Platelet Count 162 x10^3/uL (140-400) Neutrophils (%) (Auto) 73 % (31-73) Lymphocytes (%) (Auto) 14 % (24-48) Monocytes (%) (Auto) 9 % (0-9) Eosinophils (%) (Auto) 5 % (0-3) Basophils (%) (Auto) 1 % (0-3) Neutrophils # (Auto) 2.7 x10^3/uL (1.8-7.7) Lymphocytes # (Auto) 0.5 x10^3/uL (1.0-4.8) Monocytes # (Auto) 0.3 x10^3/uL (0.0-1.1) Eosinophils # (Auto) 0.2 x10^3/uL (0.0-0.7) Basophils # (Auto) 0.0 x10^3/uL (0.0-0.2) Prothrombin Time 16.9 SEC (11.7-14.0) Prothromb Time International Ratio 1.4 (0.8-1.1) Sodium Level 142 mmol/L (136-145) Potassium Level 3.9 mmol/L (3.5-5.1) Chloride Level 106 mmol/L (98-107) Carbon Dioxide Level 29 mmol/L (21-32) Anion Gap 7 (6-14) Blood Urea Nitrogen 20 mg/dL (7-20) Creatinine 1.4 mg/dL (0.6-1.0) Estimated GFR (Cockcroft-Gault) 35.6 Glucose Level 97 mg/dL (70-99) Calcium Level 8.4 mg/dL (8.5-10.1) Physical Exam Neurology: alert, oriented, follow commands Musculoskeletal: Osteoarthritis Assessment Assessment IMP CKD STAGE 4 TO 3 WITH CR AT BASELINE NOW SUPRATHERAPEUTIC INR BACK PAIN WITH T 12 FX ANEMIA CAD WITH AFIB, PPM AND VALVULAR HEART DZ HEMATURIA-PROB NEEDS RECHECK ONCE INR IS BETTER HTN HX PLAN UROLOGY W/U AT SOME POINT FOR HEMATURIA CARDIAC W/U RENAL FXN IS STABLE WILL FOLLOW NEEDED GREG PARTIDA MD May 29, 2019 16:23
[2019-05-29] MEDS: LUBIPROSTONE 8 MCG CAPSULE PO SCH (17:00)
[2019-05-29] MEDS: EZETIMIBE 10 MG TABLET. PO SCH (17:31)
[2019-05-29] MEDS: PATCH REMOVAL. MC SCH (21:49)
[2019-05-29] MEDS: GABAPENTIN 100 MG CAPSULE. PO SCH (21:49)
[2019-05-29] MEDS: tiZANidine 4 MG TABLET. PO SCH (21:49)
[2019-05-30 03:00] VITALS: BP 116/58
[2019-05-30 07:00] VITALS: BP 144/66
[2019-05-30 07:13] LABS: BASO % 1 % (0-3); EOS # 0.2 x10^3/uL (0.0-0.7); EOS % 5 % (0-3); HEMATOCRIT 26.6 % (36.0-47.0); HEMOGLOBIN 8.4 g/dL (12.0-15.5); LYMPH # 0.5 x10^3/uL (1.0-4.8); LYMPH % 15 % (24-48); MEAN CORPUSCULAR HEMOGLOBIN 28 pg (25-35); MEAN CORPUSCULAR HGB CONC 31 g/dL (31-37); MEAN CORPUSCULAR VOLUME 87 fL (79-100); MONO # 0.4 x10^3/uL (0.0-1.1); MONO % 11 % (0-9); NEUT # 2.4 x10^3/uL (1.8-7.7); NEUT % 69 % (31-73); PLATELET COUNT 164 x10^3/uL (140-400); RED BLOOD COUNT 3.04 x10^6/uL (3.50-5.40); RED CELL DISTRIBUTION WIDTH 19.4 % (11.5-14.5); WHITE BLOOD COUNT 3.4 x10^3/uL (4.0-11.0)
[2019-05-30 07:20] LABS: PROTHROMBIN TIME PATIENT 15.4 SEC (11.7-14.0)
[2019-05-30] MEDS: LUBIPROSTONE 8 MCG CAPSULE PO SCH ×2 (09:36→17:32)
[2019-05-30] MEDS: POLYETHYLENE GLYCOL 3350 17 GM PACKET. PO SCH ×2 (09:36→21:00)
[2019-05-30] MEDS: CHOLECALCIFEROL (VITAMIN D3) 5,000 UNIT CAPSULE PO SCH (09:37)
[2019-05-30] MEDS: PANTOPRAZOLE 40 MG TABLET.DR. PO SCH (09:37)
[2019-05-30] MEDS: LIDOCAINE (700MG/PATCH) PATCH. TD SCH (09:37)
[2019-05-30] MEDS: IRON POLYSACCHARIDE COMPLEX 150 MG CAPSULE PO SCH ×2 (09:37→21:44)
[2019-05-30] MEDS: ASPIRIN CHEWABLE 81 MG TABLET. PO SCH (09:37)
[2019-05-30] MEDS: AMIODARONE HCL 200 MG TABLET. PO SCH (09:38)
[2019-05-30] MEDS: LISINOPRIL 10 MG TABLET PO SCH (09:39)
[2019-05-30 11:00] VITALS: BP 122/54
--- NOTE | 2019-05-30 11:16 | PDOC ---
Renal-Progress Notes Subjective Notes Notes NONE History of Present Illness Hx of present illness STABLE Vitals Vitals Vital Signs Date Time Temp Pulse Resp B/P (MAP) Pulse Ox O2 Delivery O2 Flow Rate FiO2 05/30/19 09:39 79 144/66 05/30/19 07:00 98.2 16 94 Room Air 98.2 Weight Weight [ ] I.O. Intake and Output Intake and Output 05/30/19 07:00 Intake Total 650 ml Balance 650 ml Intake Oral 650 ml # Voids 1 Labs Labs Laboratory Tests Test 05/30/19 06:22 White Blood Count 3.4 x10^3/uL (4.0-11.0) Red Blood Count 3.04 x10^6/uL (3.50-5.40) Hemoglobin 8.4 g/dL (12.0-15.5) Hematocrit 26.6 % (36.0-47.0) Mean Corpuscular Volume 87 fL (79-100) Mean Corpuscular Hemoglobin 28 pg (25-35) Mean Corpuscular Hemoglobin Concent 31 g/dL (31-37) Red Cell Distribution Width 19.4 % (11.5-14.5) Platelet Count 164 x10^3/uL (140-400) Neutrophils (%) (Auto) 69 % (31-73) Lymphocytes (%) (Auto) 15 % (24-48) Monocytes (%) (Auto) 11 % (0-9) Eosinophils (%) (Auto) 5 % (0-3) Basophils (%) (Auto) 1 % (0-3) Neutrophils # (Auto) 2.4 x10^3/uL (1.8-7.7) Lymphocytes # (Auto) 0.5 x10^3/uL (1.0-4.8) Monocytes # (Auto) 0.4 x10^3/uL (0.0-1.1) Eosinophils # (Auto) 0.2 x10^3/uL (0.0-0.7) Basophils # (Auto) 0.0 x10^3/uL (0.0-0.2) Prothrombin Time 15.4 SEC (11.7-14.0) Prothromb Time International Ratio 1.3 (0.8-1.1) Physical Exam Neurology: alert, oriented, follow commands Musculoskeletal: Osteoarthritis Assessment Assessment IMP CKD STAGE 4 TO 3 WITH CR AT BASELINE NOW-STABLE AT 1.4 SUPRATHERAPEUTIC INR-BETTER BACK PAIN WITH T 12 FX ANEMIA CAD WITH AFIB, PPM AND VALVULAR HEART DZ HEMATURIA-PROB NEEDS RECHECK ONCE INR IS BETTER HTN HX PLAN UROLOGY W/U AT SOME POINT FOR HEMATURIA CARDIAC W/U RENAL FXN IS STABLE WILL FOLLOW NEEDED GREG PARTIDA MD May 30, 2019 11:16
--- NOTE | 2019-05-30 11:40 | PDOC ---
PROGRESS NOTES Subjective Subjective She admits continued low back pain. Objective Objective Vital Signs Date Time Temp Pulse Resp B/P (MAP) Pulse Ox O2 Delivery O2 Flow Rate FiO2 05/30/19 09:39 79 144/66 05/30/19 07:00 98.2 16 94 Room Air 98.2 05/28/19 10:47 2.0 Intake and Output 05/30/19 07:00 Intake Total 650 ml Balance 650 ml Intake Oral 650 ml # Voids 1 Physical Exam Physical Exam She is alert and in no acute distress and she is moving in bed and transferring and walking with roller walker better without any complaints of pain today but needs help with donning of lumbar corset and she stills limps on her feet as she is protecting her left hip. She lacks confidence to go home and could not financially afford co-pay to go to SNF, Assessment Assessment Problems Medical Problems: (1) Elevated INR Status: Acute (2) Sacral fracture Status: Acute (3) T12 compression fracture Status: Acute Plan Plan of Care To encourage her to get up and walk more to gain confidence in her ability to return home with home health,unless she can go to rehab unit without co-pay for a short period. Comment Review of Relevant I have reviewed the following items jaziel (where applicable) has been applied. Labs Laboratory Tests Test 05/29/19 04:45 05/30/19 06:22 White Blood Count 3.7 x10^3/uL (4.0-11.0) 3.4 x10^3/uL (4.0-11.0) Red Blood Count 3.15 x10^6/uL (3.50-5.40) 3.04 x10^6/uL (3.50-5.40) Hemoglobin 8.7 g/dL (12.0-15.5) 8.4 g/dL (12.0-15.5) Hematocrit 27.6 % (36.0-47.0) 26.6 % (36.0-47.0) Mean Corpuscular Volume 88 fL (79-100) 87 fL (79-100) Mean Corpuscular Hemoglobin 28 pg (25-35) 28 pg (25-35) Mean Corpuscular Hemoglobin Concent 32 g/dL (31-37) 31 g/dL (31-37) Red Cell Distribution Width 19.1 % (11.5-14.5) 19.4 % (11.5-14.5) Platelet Count 162 x10^3/uL (140-400) 164 x10^3/uL (140-400) Neutrophils (%) (Auto) 73 % (31-73) 69 % (31-73) Lymphocytes (%) (Auto) 14 % (24-48) 15 % (24-48) Monocytes (%) (Auto) 9 % (0-9) 11 % (0-9) Eosinophils (%) (Auto) 5 % (0-3) 5 % (0-3) Basophils (%) (Auto) 1 % (0-3) 1 % (0-3) Neutrophils # (Auto) 2.7 x10^3/uL (1.8-7.7) 2.4 x10^3/uL (1.8-7.7) Lymphocytes # (Auto) 0.5 x10^3/uL (1.0-4.8) 0.5 x10^3/uL (1.0-4.8) Monocytes # (Auto) 0.3 x10^3/uL (0.0-1.1) 0.4 x10^3/uL (0.0-1.1) Eosinophils # (Auto) 0.2 x10^3/uL (0.0-0.7) 0.2 x10^3/uL (0.0-0.7) Basophils # (Auto) 0.0 x10^3/uL (0.0-0.2) 0.0 x10^3/uL (0.0-0.2) Prothrombin Time 16.9 SEC (11.7-14.0) 15.4 SEC (11.7-14.0) Prothromb Time International Ratio 1.4 (0.8-1.1) 1.3 (0.8-1.1) Sodium Level 142 mmol/L (136-145) Potassium Level 3.9 mmol/L (3.5-5.1) Chloride Level 106 mmol/L (98-107) Carbon Dioxide Level 29 mmol/L (21-32) Anion Gap 7 (6-14) Blood Urea Nitrogen 20 mg/dL (7-20) Creatinine 1.4 mg/dL (0.6-1.0) Estimated GFR (Cockcroft-Gault) 35.6 Glucose Level 97 mg/dL (70-99) Calcium Level 8.4 mg/dL (8.5-10.1) Laboratory Tests Test 05/30/19 06:22 White Blood Count 3.4 x10^3/uL (4.0-11.0) Red Blood Count 3.04 x10^6/uL (3.50-5.40) Hemoglobin 8.4 g/dL (12.0-15.5) Hematocrit 26.6 % (36.0-47.0) Mean Corpuscular Volume 87 fL (79-100) Mean Corpuscular Hemoglobin 28 pg (25-35) Mean Corpuscular Hemoglobin Concent 31 g/dL (31-37) Red Cell Distribution Width 19.4 % (11.5-14.5) Platelet Count 164 x10^3/uL (140-400) Neutrophils (%) (Auto) 69 % (31-73) Lymphocytes (%) (Auto) 15 % (24-48) Monocytes (%) (Auto) 11 % (0-9) Eosinophils (%) (Auto) 5 % (0-3) Basophils (%) (Auto) 1 % (0-3) Neutrophils # (Auto) 2.4 x10^3/uL (1.8-7.7) Lymphocytes # (Auto) 0.5 x10^3/uL (1.0-4.8) Monocytes # (Auto) 0.4 x10^3/uL (0.0-1.1) Eosinophils # (Auto) 0.2 x10^3/uL (0.0-0.7) Basophils # (Auto) 0.0 x10^3/uL (0.0-0.2) Prothrombin Time 15.4 SEC (11.7-14.0) Prothromb Time International Ratio 1.3 (0.8-1.1) Medications Current Medications Acetaminophen (Tylenol) 1,000 mg 1X ONCE PO Last administered on 05/25/19at 16:23; Start 05/25/19 at 16:00; Stop 05/25/19 at 16:01; Status DC Fentanyl Citrate (Fentanyl 2ml Vial) 25 mcg 1X ONCE IV Last administered on 05/25/19at 16:23; Start 05/25/19 at 16:15; Stop 05/25/19 at 16:16; Status DC Amiodarone HCl (Cordarone) 200 mg DAILY PO Last administered on 05/30/19 09:39; Start 05/26/19 at 09:00 Aspirin (Children'S Aspirin) 81 mg DAILY PO Last administered on 05/30/19 09:39; Start 05/26/19 at 09:00 Bisacodyl (Dulcolax Supp) 10 mg PRN DAILY PRN MI CONSTIPATION; Start 05/25/19 at 19:30 Cyclobenzaprine HCl (Flexeril) 5 mg PRN Q12HR PRN PO MUSCLE SPASMS; Start 05/25/19 at 19:30 EZETIMIBE (Zetia) 10 mg QEVNG PO Last administered on 05/29/19 17:31; Start 05/26/19 at 18:00 Gabapentin (Neurontin) 100 mg HS PO Last administered on 05/29/19 21:51; Start 05/25/19 at 21:00 Acetaminophen/ Hydrocodone Bitart (Lortab 5/325) 1 tab PRN Q4HRS PRN PO MODERATE PAIN Last administered on 05/29/19 19:53; Start 05/25/19 at 19:30 Lisinopril (Prinivil) 10 mg DAILY PO Last administered on 05/30/19 09:39; Start 05/26/19 at 09:00 Pantoprazole Sodium (Protonix) 40 mg DAILYAC PO Last administered on 05/30/19 09:39; Start 05/26/19 at 07:30 Fentanyl Citrate (Fentanyl 2ml Vial) 25 mcg 1X ONCE IV Last administered on 05/25/19 19:46; Start 05/25/19 at 19:45; Stop 05/25/19 at 19:46; Status DC Phytonadione (Mephyton Oral Soln) 5 mg 1X ONCE PO Last administered on 05/25/19 21:04; Start 05/25/19 at 20:15; Stop 05/25/19 at 20:16; Status DC Vitamin D (Vitamin D3) 5,000 unit DAILY PO Last administered on 05/30/19 09:39; Start 05/26/19 at 09:00 Tizanidine HCl (Zanaflex) 2 mg HS PO Last administered on 05/29/19 21:51; Start 05/26/19 at 21:00 Tizanidine HCl (Zanaflex) 2 mg 1X ONCE PO Last administered on 05/26/19at 02:29; Start 05/25/19 at 23:55; Stop 05/25/19 at 23:57; Status DC Polysaccharide Iron Complex (Niferex 150) 150 mg BID PO Last administered on 05/30/19 09:39; Start 05/26/19 at 21:00 Lidocaine (Lidoderm) 1 patch DAILY TD Last administered on 05/30/19 09:39; Start 05/26/19 at 10:00 Miscellaneous (Lidoderm Patch Removal) 1 ea QHS MC Last administered on 05/29/19 21:51; Start 05/26/19 at 21:00 Phytonadione (Vitamin K Ampule) 5 mg 1X ONCE SQ Last administered on 05/26/19at 17:20; Start 05/26/19 at 16:00; Stop 05/26/19 at 16:01; Status DC Polyethylene Glycol (miraLAX PACKET) 17 gm DAILY PO Last administered on 05/29/19at 09:45; Start 05/27/19 at 16:00; Stop 05/29/19 at 13:10; Status DC Phytonadione (Vitamin K Ampule) 5 mg 1X ONCE SQ Last administered on 05/27/19at 22:00; Start 05/27/19 at 20:15; Stop 05/27/19 at 20:16; Status DC Lidocaine/Sodium Bicarbonate (Buffered Lidocaine 1%) 3 ml STK-MED ONCE .ROUTE ; Start 05/28/19 at 09:23; Stop 05/28/19 at 09:23; Status DC Cefazolin Sodium 50 ml @ As Directed STK-MED ONCE IV ; Start 05/28/19 at 09:51; Stop 05/28/19 at 09:51; Status DC Midazolam HCl (Versed) 2 mg STK-MED ONCE .ROUTE ; Start 05/28/19 at 09:51; Stop 05/28/19 at 09:51; Status DC Fentanyl Citrate (Fentanyl 2ml Vial) 100 mcg STK-MED ONCE .ROUTE ; Start 05/28/19 at 09:51; Stop 05/28/19 at 09:51; Status DC Lidocaine/Sodium Bicarbonate (Buffered Lidocaine 1%) 6 ml 1X ONCE IJ Last administered on 05/28/19 10:46; Start 05/28/19 at 10:45; Stop 05/28/19 at 10:46; Status DC Midazolam HCl (Versed) 2 mg 1X ONCE IV Last administered on 05/28/19 10:41; Start 05/28/19 at 10:45; Stop 05/28/19 at 10:46; Status DC Fentanyl Citrate (Fentanyl 2ml Vial) 100 mcg 1X ONCE IV Last administered on 05/28/19 10:41; Start 05/28/19 at 10:45; Stop 05/28/19 at 10:46; Status DC Cefazolin Sodium 50 ml @ 100 mls/hr 1X ONCE IV Last administered on 05/28/19 10:46; Start 05/28/19 at 10:45; Stop 05/28/19 at 11:14; Status DC Warfarin Sodium (Coumadin) 2.5 mg 1X WARF ONCE PO Last administered on 05/28/19 17:31; Start 05/28/19 at 18:00; Stop 05/28/19 at 18:01; Status DC Warfarin Sodium (Coumadin Per Pharmacy) 1 each PRN DAILY PRN MC SEE COMMENTS Last administered on 05/29/19 14:13; Start 05/28/19 at 17:00 Polyethylene Glycol (miraLAX PACKET) 17 gm BID PO Last administered on 05/30/19 09:39; Start 05/29/19 at 21:00 Bisacodyl (Dulcolax Tab) 10 mg 1X ONCE PO ; Start 05/29/19 at 13:15; Stop 05/29/19 at 13:16; Status DC Lubiprostone (Amitiza) 8 mcg BIDWMEALS PO Last administered on 05/30/19 09:39; Start 05/29/19 at 17:00 Warfarin Sodium (Coumadin) 5 mg 1X WARF ONCE PO Last administered on 05/29/19 17:31; Start 05/29/19 at 16:00; Stop 05/29/19 at 16:01; Status DC Active Scripts Active [Pantoprazole] 40 MG Tablet.dr 40 Mg PO DAILYAC 30 Days Bisacodyl 10 Mg Supp.rect 10 Mg MI PRN DAILY PRN 14 Days Hydrocodone-Apap 5-325 (Hydrocodone Bit/Acetaminophen) 1 Tab Tablet 1 Tab PO PRN Q4HRS PRN 14 Days Cyclobenzaprine Hcl 10 Mg Tablet 5 Mg PO PRN Q12HR PRN 7 Days Reported Tizanidine Hcl 2 Mg Capsule 2 Mg PO HS Warfarin Sodium 2.5 Mg Tablet 2.5 Mg PO CONT PRN Amiodarone Hcl 200 Mg Tablet 1 Tab PO DAILY Aspirin 81 Mg Tab.chew 1 Tab PO DAILY Lisinopril 10 Mg Tablet 1 Tab PO DAILY Zetia (Ezetimibe) 10 Mg Tablet 10 Mg PO QEVNG Multivitamins (Multivitamin) 1 Each Tablet 1 Tab PO DAILY Calcium 600 + Vit D 200 Tablet (Calcium Carbonate/Vitamin D3) 1 Each Tablet 1 Each PO QEVNG Gabapentin (Gabapentin) 100 Mg Capsule 100 Mg PO HS Vitals/I & O Vital Sign - Last 24 Hours 05/29/19 05/29/19 05/29/19 05/29/19 11:41 14:55 15:37 19:25 Temp 98.6 97.9 98.9 98.6 97.9 98.9 Pulse 73 86 65 Resp 18 19 20 18 B/P (MAP) 119/57 (77) 125/56 (79) 116/55 (75) Pulse Ox 95 95 99 95 O2 Delivery Room Air Room Air Room Air Room Air 05/29/19 05/29/19 05/30/19 05/30/19 20:11 23:00 03:00 07:00 Temp 97.6 97.8 98.2 97.6 97.8 98.2 Pulse 72 75 79 Resp 18 18 16 B/P (MAP) 82/47 (59) 116/58 (77) 144/66 (92) Pulse Ox 96 96 94 O2 Delivery Room Air Room Air Room Air Room Air 05/30/19 05/30/19 09:39 09:39 Pulse 79 79 B/P (MAP) 144/66 144/66 Intake and Output 05/29/19 05/29/19 05/30/19 15:00 23:00 07:00 Intake Total 450 ml 200 ml Balance 450 ml 200 ml Nutrition Consultation Dietary Evaluation: Recommendations by RD: Increase Calorie Intake, Protein supplementation Comments: REC continue chocolate ensure tid Expected Outcomes/Goals: to meet > 75% est nutr needs- met at times,goal ongoing Malnutrition Findings: Muscle Mass (Severe): Severe Depletion Body Fat Depletion (Non Severe: Mod to Severe Weight Status: Underweight MARIELENA RODRIGUEZ MD May 30, 2019 11:40
--- NOTE | 2019-05-30 12:27 | PDOC ---
[employer] PROGRESS NOTE Chief Complaint Chief Complaint Elevated INR Recent hx L hip replacement surgery CKD4 Anemia of CKD AFib CAD HTN Hyperlipidemia Valve insufficiency History of Present Illness History of Present Illness 05/30/19 Pt seen/examined sitting up in chair next to bed INR is trending down with it initially being 5.9, down to 1.3 today DW pt extensively her options moving forward She is concerned about going home and would like 24 hr care, but cannot afford it w/o insurance help 05/29/19 Pt seen/examined at bedside Pt alert and seems to be in less pain today following sacroplasty INR is trending down with it initially being 5.9 but down to 1.4 today 05/28/19 Pt seen/examined at bedside Clean/dry/intact L hip wound from hip replacement surgery Pt alert and asking when procedure would occur today (sacroplasty) Called IR who was on the way up Vitals/I&O Vitals/I&O: Vital Signs Date Time Temp Pulse Resp B/P (MAP) Pulse Ox O2 Delivery O2 Flow Rate FiO2 05/30/19 11:00 98.5 7 16 122/54 (76) 95 Room Air 98.5 I & O 05/29/19 05/29/19 05/30/19 15:00 23:00 07:00 Intake Total 450 ml 200 ml Balance 450 ml 200 ml Physical Exam General: Alert, Cooperative, Other (pt seems anxious about what the next step will be) Heart: Regular rate, Normal S1, Normal S2 Lungs: Clear Abdomen: Normal bowel sounds, Soft Extremities: No clubbing, No cyanosis, Normal pulses Skin: No rashes, No breakdown Labs Labs: Laboratory Tests Test 05/30/19 06:22 White Blood Count 3.4 x10^3/uL (4.0-11.0) Red Blood Count 3.04 x10^6/uL (3.50-5.40) Hemoglobin 8.4 g/dL (12.0-15.5) Hematocrit 26.6 % (36.0-47.0) Mean Corpuscular Volume 87 fL (79-100) Mean Corpuscular Hemoglobin 28 pg (25-35) Mean Corpuscular Hemoglobin Concent 31 g/dL (31-37) Red Cell Distribution Width 19.4 % (11.5-14.5) Platelet Count 164 x10^3/uL (140-400) Neutrophils (%) (Auto) 69 % (31-73) Lymphocytes (%) (Auto) 15 % (24-48) Monocytes (%) (Auto) 11 % (0-9) Eosinophils (%) (Auto) 5 % (0-3) Basophils (%) (Auto) 1 % (0-3) Neutrophils # (Auto) 2.4 x10^3/uL (1.8-7.7) Lymphocytes # (Auto) 0.5 x10^3/uL (1.0-4.8) Monocytes # (Auto) 0.4 x10^3/uL (0.0-1.1) Eosinophils # (Auto) 0.2 x10^3/uL (0.0-0.7) Basophils # (Auto) 0.0 x10^3/uL (0.0-0.2) Prothrombin Time 15.4 SEC (11.7-14.0) Prothromb Time International Ratio 1.3 (0.8-1.1) Review of Systems Review of Systems: Pt expressed being anxious about where she will go next No CO back pain today Assessment and Plan Assessmemt and Plan Problems Medical Problems: (1) Elevated INR Status: Acute (2) Sacral fracture Status: Acute (3) T12 compression fracture Status: Acute Assessment Elevated INR Recent hx L hip replacement surgery CKD4 Anemia of CKD AFib CAD HTN Hyperlipidemia Valve insufficiency Plan DVT prophylaxis Home meds PT/OT, increase confidence in being able to go home Labs Await decision on where she will go next Comment Review of Relevant I have reviewed the following items jaziel (where applicable) has been applied. Medications: Current Medications Medications (Trade) Dose Ordered Sig/Jacob Route PRN Reason Start Time Stop Time Status Last Admin Dose Admin Polyethylene Glycol (miraLAX PACKET) 17 gm BID PO 05/29/19 21:00 05/30/19 09:39 Lubiprostone (Amitiza) 8 mcg BIDWMEALS PO 05/29/19 17:00 05/30/19 09:39 Warfarin Sodium (Coumadin) 5 mg 1X WARF ONCE PO 05/29/19 16:00 05/29/19 16:01 DC 05/29/19 17:31 CHIQUIS THAYER III DO May 30, 2019 12:27
[2019-05-30] MEDS: HYDROcodone/APAP 5/325MG 1 TAB TABLET PO PRN (14:16)
[2019-05-30 15:00] VITALS: BP 135/54
--- NOTE | 2019-05-30 17:13 | NUR ---
Pharmacy Warfarin Dosing Note S:Pharmacy consulted to assist with anticoagulation therapy started with target INR: 2 -3 O:ADDISON GARCIA is a 89 year old F with Atrial Fibrillation LABS: Last INR: 1.3 Last HGB: 8.4 Last HCT: 26.6 Last PLT: 164 Last dose of 5 mg given on 05/29/19 at 1731 Previous Regimen: 5 mg Saturday and and 2.5 mg the rest of the week Vitamin K given: Y 05/26 and 05/27 Drug Interaction Changes: Same Interacting Drug Ongoing Drug Interactions: Amiodarone, Aspirin A:INR of 1.3 is below desired range. Target range for this patient is: 2 -3 P: Warfarin dose: 4 mg Today at 1730. Bridge Therapy: None Next INR due 05/30/19 Pharmacy anticoagulation service will continue to follow. GRANT ADAN, [facility], 05/30/19 [id number]
[2019-05-30] MEDS ORDERED: WARFARIN 4 MG TABLET. PO ONE (17:30)
[2019-05-30] MEDS: EZETIMIBE 10 MG TABLET. PO SCH (17:34)
[2019-05-30 19:00] VITALS: BP 135/54
--- NOTE | 2019-05-30 19:33 | NUR ---
[id number] warfarin non-administered r/t this nurse speaking with MD today. MD stated to wait for cardiology before restarting medication. Pt. high fall risk. Will continue to monitor.
[2019-05-30 20:00] VITALS: BP 114/53
[2019-05-30] MEDS: PATCH REMOVAL. MC SCH (21:00)
[2019-05-30] MEDS: GABAPENTIN 100 MG CAPSULE. PO SCH (21:44)
[2019-05-30] MEDS: tiZANidine 4 MG TABLET. PO SCH (21:44)
[2019-05-31] MEDS: CYCLOBENZAPRINE 10 MG TABLET. PO PRN (01:29)
[2019-05-31 03:00] VITALS: BP 113/50
[2019-05-31 04:35] LABS: BASO % 1 % (0-3); EOS # 0.1 x10^3/uL (0.0-0.7); EOS % 4 % (0-3); HEMOGLOBIN 7.6 g/dL (12.0-15.5); LYMPH # 0.7 x10^3/uL (1.0-4.8); LYMPH % 20 % (24-48); MEAN CORPUSCULAR HEMOGLOBIN 28 pg (25-35); MEAN CORPUSCULAR HGB CONC 32 g/dL (31-37); MEAN CORPUSCULAR VOLUME 87 fL (79-100); MONO # 0.4 x10^3/uL (0.0-1.1); MONO % 11 % (0-9); NEUT # 2.1 x10^3/uL (1.8-7.7); NEUT % 64 % (31-73); PLATELET COUNT 151 x10^3/uL (140-400); RED BLOOD COUNT 2.75 x10^6/uL (3.50-5.40); RED CELL DISTRIBUTION WIDTH 19.4 % (11.5-14.5); WHITE BLOOD COUNT 3.3 x10^3/uL (4.0-11.0)
[2019-05-31 04:43] LABS: PROTHROMBIN TIME PATIENT 14.9 SEC (11.7-14.0)
[2019-05-31 07:46] VITALS: BP 131/67
[2019-05-31] MEDS: LUBIPROSTONE 8 MCG CAPSULE PO SCH ×2 (08:45→18:08)
[2019-05-31] MEDS: PANTOPRAZOLE 40 MG TABLET.DR. PO SCH (08:45)
[2019-05-31] MEDS: IRON POLYSACCHARIDE COMPLEX 150 MG CAPSULE PO SCH ×2 (08:45→20:26)
[2019-05-31] MEDS: ASPIRIN CHEWABLE 81 MG TABLET. PO SCH (08:45)
[2019-05-31] MEDS: CHOLECALCIFEROL (VITAMIN D3) 5,000 UNIT CAPSULE PO SCH (08:45)
[2019-05-31] MEDS: AMIODARONE HCL 200 MG TABLET. PO SCH (08:46)
[2019-05-31] MEDS: POLYETHYLENE GLYCOL 3350 17 GM PACKET. PO SCH ×3 (08:46→20:19)
[2019-05-31] MEDS: LISINOPRIL 10 MG TABLET PO SCH (08:46)
[2019-05-31] MEDS: LIDOCAINE (700MG/PATCH) PATCH. TD SCH (08:48)
[2019-05-31] MEDS: HYDROcodone/APAP 5/325MG 1 TAB TABLET PO PRN (08:50)
[2019-05-31 11:38] VITALS: BP 125/46
--- NOTE | 2019-05-31 12:04 | PDOC ---
Renal-Progress Notes Subjective Notes Notes NOTHING NEW History of Present Illness Hx of present illness STABLE Vitals Vitals Vital Signs Date Time Temp Pulse Resp B/P (MAP) Pulse Ox O2 Delivery O2 Flow Rate FiO2 05/31/19 08:48 68 131/67 05/31/19 07:46 98.0 18 97 Room Air 98.0 05/31/19 03:00 2.0 Weight Weight [ ] I.O. Intake and Output Intake and Output 05/31/19 07:00 Intake Total 650 ml Balance 650 ml Intake Oral 650 ml # Voids 6 # Bowel Movements 2 Labs Labs Laboratory Tests Test 05/31/19 04:05 05/31/19 04:10 White Blood Count 3.3 x10^3/uL (4.0-11.0) Red Blood Count 2.75 x10^6/uL (3.50-5.40) Hemoglobin 7.6 g/dL (12.0-15.5) Hematocrit 24.0 % (36.0-47.0) Mean Corpuscular Volume 87 fL (79-100) Mean Corpuscular Hemoglobin 28 pg (25-35) Mean Corpuscular Hemoglobin Concent 32 g/dL (31-37) Red Cell Distribution Width 19.4 % (11.5-14.5) Platelet Count 151 x10^3/uL (140-400) Neutrophils (%) (Auto) 64 % (31-73) Lymphocytes (%) (Auto) 20 % (24-48) Monocytes (%) (Auto) 11 % (0-9) Eosinophils (%) (Auto) 4 % (0-3) Basophils (%) (Auto) 1 % (0-3) Neutrophils # (Auto) 2.1 x10^3/uL (1.8-7.7) Lymphocytes # (Auto) 0.7 x10^3/uL (1.0-4.8) Monocytes # (Auto) 0.4 x10^3/uL (0.0-1.1) Eosinophils # (Auto) 0.1 x10^3/uL (0.0-0.7) Basophils # (Auto) 0.0 x10^3/uL (0.0-0.2) Prothrombin Time 14.9 SEC (11.7-14.0) Prothromb Time International Ratio 1.2 (0.8-1.1) Physical Exam Neurology: alert, oriented, follow commands Musculoskeletal: Osteoarthritis Assessment Assessment IMP CKD STAGE 4 TO 3 WITH CR AT BASELINE NOW-STABLE AT 1.4 SUPRATHERAPEUTIC INR-BETTER BACK PAIN WITH T 12 FX ANEMIA CAD WITH AFIB, PPM AND VALVULAR HEART DZ HEMATURIA-PROB NEEDS RECHECK ONCE INR IS BETTER HTN HX PLAN UROLOGY W/U AT SOME POINT FOR HEMATURIA CARDIAC W/U RENAL FXN IS STABLE WILL FOLLOW NEEDED GREG PARTIDA MD May 31, 2019 12:03
--- NOTE | 2019-05-31 12:30 | PDOC ---
[employer] PROGRESS NOTE Chief Complaint Chief Complaint Elevated INR Recent hx L hip replacement surgery CKD4 Anemia of CKD AFib CAD HTN Hyperlipidemia Valve insufficiency History of Present Illness History of Present Illness 05/31/19 Pt seen/examined at bedside Pt currently eating Pt seemed in good spirits today and is waiting on the correctional casework specialist to determine where she will go next 05/30/19 Pt seen/examined sitting up in chair next to bed INR is trending down with it initially being 5.9, down to 1.3 today DW pt extensively her options moving forward She is concerned about going home and would like 24 hr care, but cannot afford it w/o insurance help 05/29/19 Pt seen/examined at bedside Pt alert and seems to be in less pain today following sacroplasty INR is trending down with it initially being 5.9 but down to 1.4 today 05/28/19 Pt seen/examined at bedside Clean/dry/intact L hip wound from hip replacement surgery Pt alert and asking when procedure would occur today (sacroplasty) Called IR who was on the way up Vitals/I&O Vitals/I&O: Vital Signs Date Time Temp Pulse Resp B/P (MAP) Pulse Ox O2 Delivery O2 Flow Rate FiO2 05/31/19 08:48 68 131/67 05/31/19 07:46 98.0 18 97 Room Air 98.0 05/31/19 03:00 2.0 I & O 05/30/19 05/30/19 05/31/19 15:00 23:00 07:00 Intake Total 300 ml 350 ml Balance 300 ml 350 ml Physical Exam General: Alert, Cooperative, No acute distress Heart: Regular rate, Normal S1, Normal S2 Lungs: Clear Abdomen: Normal bowel sounds, Soft Extremities: No clubbing, No cyanosis, Normal pulses Skin: No rashes, No breakdown Labs Labs: Laboratory Tests Test 05/31/19 04:05 05/31/19 04:10 White Blood Count 3.3 x10^3/uL (4.0-11.0) Red Blood Count 2.75 x10^6/uL (3.50-5.40) Hemoglobin 7.6 g/dL (12.0-15.5) Hematocrit 24.0 % (36.0-47.0) Mean Corpuscular Volume 87 fL (79-100) Mean Corpuscular Hemoglobin 28 pg (25-35) Mean Corpuscular Hemoglobin Concent 32 g/dL (31-37) Red Cell Distribution Width 19.4 % (11.5-14.5) Platelet Count 151 x10^3/uL (140-400) Neutrophils (%) (Auto) 64 % (31-73) Lymphocytes (%) (Auto) 20 % (24-48) Monocytes (%) (Auto) 11 % (0-9) Eosinophils (%) (Auto) 4 % (0-3) Basophils (%) (Auto) 1 % (0-3) Neutrophils # (Auto) 2.1 x10^3/uL (1.8-7.7) Lymphocytes # (Auto) 0.7 x10^3/uL (1.0-4.8) Monocytes # (Auto) 0.4 x10^3/uL (0.0-1.1) Eosinophils # (Auto) 0.1 x10^3/uL (0.0-0.7) Basophils # (Auto) 0.0 x10^3/uL (0.0-0.2) Prothrombin Time 14.9 SEC (11.7-14.0) Prothromb Time International Ratio 1.2 (0.8-1.1) Review of Systems Review of Systems: No CO pain No SOB Assessment and Plan Assessmemt and Plan Problems Medical Problems: (1) Elevated INR Status: Acute (2) Sacral fracture Status: Acute (3) T12 compression fracture Status: Acute Assessment Elevated INR Recent hx L hip replacement surgery CKD4 Anemia of CKD AFib CAD HTN Hyperlipidemia Valve insufficiency Plan DVT prophylaxis Home meds PT/OT to increase strength and confidence with going home Appreciate subspecialist input D/C disposition pending Comment Review of Relevant I have reviewed the following items jaziel (where applicable) has been applied. CHIQUIS THAYER III DO May 31, 2019 12:30
[2019-05-31 15:00] VITALS: BP 120/56
[2019-05-31] MEDS: EZETIMIBE 10 MG TABLET. PO SCH (18:08)
[2019-05-31 19:00] VITALS: BP 115/53
[2019-05-31] MEDS: PATCH REMOVAL. MC SCH (20:18)
[2019-05-31] MEDS: tiZANidine 4 MG TABLET. PO SCH (20:26)
[2019-05-31] MEDS: GABAPENTIN 100 MG CAPSULE. PO SCH (20:26)
[2019-05-31 23:00] VITALS: BP 125/46
[2019-06-01] MEDS: CYCLOBENZAPRINE 10 MG TABLET. PO PRN (00:14)
[2019-06-01 03:00] VITALS: BP 101/49
[2019-06-01 04:29] LABS: BASO % 1 % (0-3); EOS # 0.1 x10^3/uL (0.0-0.7); EOS % 3 % (0-3); HEMATOCRIT 25.8 % (36.0-47.0); HEMOGLOBIN 8.3 g/dL (12.0-15.5); LYMPH # 0.8 x10^3/uL (1.0-4.8); LYMPH % 23 % (24-48); MEAN CORPUSCULAR HEMOGLOBIN 28 pg (25-35); MEAN CORPUSCULAR HGB CONC 32 g/dL (31-37); MEAN CORPUSCULAR VOLUME 87 fL (79-100); MONO # 0.4 x10^3/uL (0.0-1.1); MONO % 12 % (0-9); NEUT % 61 % (31-73); PLATELET COUNT 160 x10^3/uL (140-400); RED BLOOD COUNT 2.98 x10^6/uL (3.50-5.40); RED CELL DISTRIBUTION WIDTH 19.4 % (11.5-14.5); WHITE BLOOD COUNT 3.3 x10^3/uL (4.0-11.0)
[2019-06-01 04:59] LABS: PROTHROMBIN TIME PATIENT 14.8 SEC (11.7-14.0)
[2019-06-01 05:00] LABS: CALCIUM 8.7 mg/dL (8.5-10.1); CREATININE 1.4 mg/dL (0.6-1.0); GFR 35.6; POTASSIUM 4.3 mmol/L (3.5-5.1)
[2019-06-01 07:00] VITALS: BP 134/58
[2019-06-01] MEDS: PANTOPRAZOLE 40 MG TABLET.DR. PO SCH (07:56)
[2019-06-01] MEDS: LUBIPROSTONE 8 MCG CAPSULE PO SCH ×2 (07:56→17:15)
[2019-06-01] MEDS: CHOLECALCIFEROL (VITAMIN D3) 5,000 UNIT CAPSULE PO SCH (08:00)
[2019-06-01] MEDS: LISINOPRIL 10 MG TABLET PO SCH (08:00)
[2019-06-01] MEDS: IRON POLYSACCHARIDE COMPLEX 150 MG CAPSULE PO SCH ×2 (08:00→20:47)
[2019-06-01] MEDS: ASPIRIN CHEWABLE 81 MG TABLET. PO SCH (08:00)
[2019-06-01] MEDS: POLYETHYLENE GLYCOL 3350 17 GM PACKET. PO SCH ×2 (08:01→20:46)
[2019-06-01] MEDS: AMIODARONE HCL 200 MG TABLET. PO SCH (08:01)
[2019-06-01] MEDS: LIDOCAINE (700MG/PATCH) PATCH. TD SCH (08:02)
--- NOTE | 2019-06-01 09:11 | PDOC ---
PROGRESS NOTES Subjective Subjective No new complaints. Objective Objective Vital Signs Date Time Temp Pulse Resp B/P (MAP) Pulse Ox O2 Delivery O2 Flow Rate FiO2 06/01/19 08:02 70 134/58 06/01/19 07:00 97.8 18 97 Room Air 97.8 06/01/19 03:00 2.0 l Intake and Output 06/01/19 06:59 Intake Total 320 ml Balance 320 ml Intake Oral 320 ml # Voids 4 # Bowel Movements 2 Physical Exam Physical Exam She is getting up and walking slowly with roller walker under supervision.She still lacks confidence to go home. Assessment Assessment Problems Medical Problems: (1) Acute renal insufficiency Status: Acute (2) Anemia Status: Chronic (3) Back pain Status: Acute (4) CAD (coronary artery disease) Status: Chronic (5) CKD (chronic kidney disease), stage IV Status: Chronic (6) Elevated INR Status: Acute (7) Heart valve insufficiency Status: Acute (8) HLD (hyperlipidemia) Status: Chronic (9) HTN (hypertension) Status: Chronic (10) Paroxysmal atrial fibrillation Status: Chronic (11) Peripheral neuropathy Status: Chronic (12) Sacral fracture Status: Acute (13) T12 compression fracture Status: Acute Plan Plan of Care Waiting for placement. Comment Review of Relevant I have reviewed the following items jaziel (where applicable) has been applied. Labs Laboratory Tests Test 05/31/19 04:05 05/31/19 04:10 06/01/19 03:30 White Blood Count 3.3 x10^3/uL (4.0-11.0) 3.3 x10^3/uL (4.0-11.0) Red Blood Count 2.75 x10^6/uL (3.50-5.40) 2.98 x10^6/uL (3.50-5.40) Hemoglobin 7.6 g/dL (12.0-15.5) 8.3 g/dL (12.0-15.5) Hematocrit 24.0 % (36.0-47.0) 25.8 % (36.0-47.0) Mean Corpuscular Volume 87 fL (79-100) 87 fL (79-100) Mean Corpuscular Hemoglobin 28 pg (25-35) 28 pg (25-35) Mean Corpuscular Hemoglobin Concent 32 g/dL (31-37) 32 g/dL (31-37) Red Cell Distribution Width 19.4 % (11.5-14.5) 19.4 % (11.5-14.5) Platelet Count 151 x10^3/uL (140-400) 160 x10^3/uL (140-400) Neutrophils (%) (Auto) 64 % (31-73) 61 % (31-73) Lymphocytes (%) (Auto) 20 % (24-48) 23 % (24-48) Monocytes (%) (Auto) 11 % (0-9) 12 % (0-9) Eosinophils (%) (Auto) 4 % (0-3) 3 % (0-3) Basophils (%) (Auto) 1 % (0-3) 1 % (0-3) Neutrophils # (Auto) 2.1 x10^3/uL (1.8-7.7) 2.0 x10^3/uL (1.8-7.7) Lymphocytes # (Auto) 0.7 x10^3/uL (1.0-4.8) 0.8 x10^3/uL (1.0-4.8) Monocytes # (Auto) 0.4 x10^3/uL (0.0-1.1) 0.4 x10^3/uL (0.0-1.1) Eosinophils # (Auto) 0.1 x10^3/uL (0.0-0.7) 0.1 x10^3/uL (0.0-0.7) Basophils # (Auto) 0.0 x10^3/uL (0.0-0.2) 0.0 x10^3/uL (0.0-0.2) Prothrombin Time 14.9 SEC (11.7-14.0) 14.8 SEC (11.7-14.0) Prothromb Time International Ratio 1.2 (0.8-1.1) 1.2 (0.8-1.1) Sodium Level 140 mmol/L (136-145) Potassium Level 4.3 mmol/L (3.5-5.1) Chloride Level 102 mmol/L (98-107) Carbon Dioxide Level 29 mmol/L (21-32) Anion Gap 9 (6-14) Blood Urea Nitrogen 26 mg/dL (7-20) Creatinine 1.4 mg/dL (0.6-1.0) Estimated GFR (Cockcroft-Gault) 35.6 Glucose Level 87 mg/dL (70-99) Calcium Level 8.7 mg/dL (8.5-10.1) Laboratory Tests Test 06/01/19 03:30 White Blood Count 3.3 x10^3/uL (4.0-11.0) Red Blood Count 2.98 x10^6/uL (3.50-5.40) Hemoglobin 8.3 g/dL (12.0-15.5) Hematocrit 25.8 % (36.0-47.0) Mean Corpuscular Volume 87 fL (79-100) Mean Corpuscular Hemoglobin 28 pg (25-35) Mean Corpuscular Hemoglobin Concent 32 g/dL (31-37) Red Cell Distribution Width 19.4 % (11.5-14.5) Platelet Count 160 x10^3/uL (140-400) Neutrophils (%) (Auto) 61 % (31-73) Lymphocytes (%) (Auto) 23 % (24-48) Monocytes (%) (Auto) 12 % (0-9) Eosinophils (%) (Auto) 3 % (0-3) Basophils (%) (Auto) 1 % (0-3) Neutrophils # (Auto) 2.0 x10^3/uL (1.8-7.7) Lymphocytes # (Auto) 0.8 x10^3/uL (1.0-4.8) Monocytes # (Auto) 0.4 x10^3/uL (0.0-1.1) Eosinophils # (Auto) 0.1 x10^3/uL (0.0-0.7) Basophils # (Auto) 0.0 x10^3/uL (0.0-0.2) Prothrombin Time 14.8 SEC (11.7-14.0) Prothromb Time International Ratio 1.2 (0.8-1.1) Sodium Level 140 mmol/L (136-145) Potassium Level 4.3 mmol/L (3.5-5.1) Chloride Level 102 mmol/L (98-107) Carbon Dioxide Level 29 mmol/L (21-32) Anion Gap 9 (6-14) Blood Urea Nitrogen 26 mg/dL (7-20) Creatinine 1.4 mg/dL (0.6-1.0) Estimated GFR (Cockcroft-Gault) 35.6 Glucose Level 87 mg/dL (70-99) Calcium Level 8.7 mg/dL (8.5-10.1) Medications Current Medications Acetaminophen (Tylenol) 1,000 mg 1X ONCE PO Last administered on 05/25/19 16:23; Start 05/25/19 at 16:00; Stop 05/25/19 at 16:01; Status DC Fentanyl Citrate (Fentanyl 2ml Vial) 25 mcg 1X ONCE IV Last administered on 05/25/19 16:23; Start 05/25/19 at 16:15; Stop 05/25/19 at 16:16; Status DC Amiodarone HCl (Cordarone) 200 mg DAILY PO Last administered on 06/01/19 08:02; Start 05/26/19 at 09:00 Aspirin (Children'S Aspirin) 81 mg DAILY PO Last administered on 06/01/19 08:02; Start 05/26/19 at 09:00 Bisacodyl (Dulcolax Supp) 10 mg PRN DAILY PRN [place] CONSTIPATION; Start 05/25/19 at 19:30 Cyclobenzaprine HCl (Flexeril) 5 mg PRN Q12HR PRN PO MUSCLE SPASMS Last administered on 06/01/19 00:14; Start 05/25/19 at 19:30 EZETIMIBE (Zetia) 10 mg QEVNG PO Last administered on 05/31/19 18:08; Start 05/26/19 at 18:00 Gabapentin (Neurontin) 100 mg HS PO Last administered on 05/31/19 20:26; Start 05/25/19 at 21:00 Acetaminophen/ Hydrocodone Bitart (Lortab 5/325) 1 tab PRN Q4HRS PRN PO MODERATE PAIN Last administered on 05/31/19 08:50; Start 05/25/19 at 19:30 Lisinopril (Prinivil) 10 mg DAILY PO Last administered on 06/01/19 08:02; Start 05/26/19 at 09:00 Pantoprazole Sodium (Protonix) 40 mg DAILYAC PO Last administered on 06/01/19 08:02; Start 05/26/19 at 07:30 Fentanyl Citrate (Fentanyl 2ml Vial) 25 mcg 1X ONCE IV Last administered on 05/25/19 19:46; Start 05/25/19 at 19:45; Stop 05/25/19 at 19:46; Status DC Phytonadione (Mephyton Oral Soln) 5 mg 1X ONCE PO Last administered on 05/25/19 21:04; Start 05/25/19 at 20:15; Stop 05/25/19 at 20:16; Status DC Vitamin D (Vitamin D3) 5,000 unit DAILY PO Last administered on 06/01/19 08:02; Start 05/26/19 at 09:00 Tizanidine HCl (Zanaflex) 2 mg HS PO Last administered on 05/31/19 20:26; Start 05/26/19 at 21:00 Tizanidine HCl (Zanaflex) 2 mg 1X ONCE PO Last administered on 05/26/19 02:29; Start 05/25/19 at 23:55; Stop 05/25/19 at 23:57; Status DC Polysaccharide Iron Complex (Niferex 150) 150 mg BID PO Last administered on 06/01/19 08:02; Start 05/26/19 at 21:00 Lidocaine (Lidoderm) 1 patch DAILY TD Last administered on 06/01/19 08:02; Start 05/26/19 at 10:00 Miscellaneous (Lidoderm Patch Removal) 1 ea QHS MC Last administered on 05/31/19 20:21; Start 05/26/19 at 21:00 Phytonadione (Vitamin K Ampule) 5 mg 1X ONCE SQ Last administered on 05/26/19 17:20; Start 05/26/19 at 16:00; Stop 05/26/19 at 16:01; Status DC Polyethylene Glycol (miraLAX PACKET) 17 gm DAILY PO Last administered on 05/29/19 09:45; Start 05/27/19 at 16:00; Stop 05/29/19 at 13:10; Status DC Phytonadione (Vitamin K Ampule) 5 mg 1X ONCE SQ Last administered on 05/27/19 22:00; Start 05/27/19 at 20:15; Stop 05/27/19 at 20:16; Status DC Lidocaine/Sodium Bicarbonate (Buffered Lidocaine 1%) 3 ml STK-MED ONCE .ROUTE ; Start 05/28/19 at 09:23; Stop 05/28/19 at 09:23; Status DC Cefazolin Sodium 50 ml @ As Directed STK-MED ONCE IV ; Start 05/28/19 at 09:51; Stop 05/28/19 at 09:51; Status DC Midazolam HCl (Versed) 2 mg STK-MED ONCE .ROUTE ; Start 05/28/19 at 09:51; Stop 05/28/19 at 09:51; Status DC Fentanyl Citrate (Fentanyl 2ml Vial) 100 mcg STK-MED ONCE .ROUTE ; Start 05/28/19 at 09:51; Stop 05/28/19 at 09:51; Status DC Lidocaine/Sodium Bicarbonate (Buffered Lidocaine 1%) 6 ml 1X ONCE IJ Last administered on 05/28/19at 10:46; Start 05/28/19 at 10:45; Stop 05/28/19 at 10:46; Status DC Midazolam HCl (Versed) 2 mg 1X ONCE IV Last administered on 05/28/19at 10:41; Start 05/28/19 at 10:45; Stop 05/28/19 at 10:46; Status DC Fentanyl Citrate (Fentanyl 2ml Vial) 100 mcg 1X ONCE IV Last administered on 05/28/19at 10:41; Start 05/28/19 at 10:45; Stop 05/28/19 at 10:46; Status DC Cefazolin Sodium 50 ml @ 100 mls/hr 1X ONCE IV Last administered on 05/28/19at 10:46; Start 05/28/19 at 10:45; Stop 05/28/19 at 11:14; Status DC Warfarin Sodium (Coumadin) 2.5 mg 1X WARF ONCE PO Last administered on 05/28/19at 17:31; Start 05/28/19 at 18:00; Stop 05/28/19 at 18:01; Status DC Warfarin Sodium (Coumadin Per Pharmacy) 1 each PRN DAILY PRN MC SEE COMMENTS Last administered on 05/30/19at 17:13; Start 05/28/19 at 17:00; Stop 05/31/19 at 10:10; Status DC Polyethylene Glycol (miraLAX PACKET) 17 gm BID PO Last administered on 05/30/19at 09:39; Start 05/29/19 at 21:00 Bisacodyl (Dulcolax Tab) 10 mg 1X ONCE PO ; Start 05/29/19 at 13:15; Stop 05/29/19 at 13:16; Status DC Lubiprostone (Amitiza) 8 mcg BIDWMEALS PO Last administered on 06/01/19at 08:02; Start 05/29/19 at 17:00 Warfarin Sodium (Coumadin) 5 mg 1X WARF ONCE PO Last administered on 05/29/19at 17:31; Start 05/29/19 at 16:00; Stop 05/29/19 at 16:01; Status DC Warfarin Sodium (Coumadin) 4 mg 1X WARF ONCE PO ; Start 05/30/19 at 17:30; Stop 05/30/19 at 17:31; Status DC Active Scripts Active [Pantoprazole] 40 MG Tablet.dr 40 Mg PO DAILYAC 30 Days Bisacodyl 10 Mg Supp.rect 10 Mg UT PRN DAILY PRN 14 Days Hydrocodone-Apap 5-325 (Hydrocodone Bit/Acetaminophen) 1 Tab Tablet 1 Tab PO PRN Q4HRS PRN 14 Days Cyclobenzaprine Hcl 10 Mg Tablet 5 Mg PO PRN Q12HR PRN 7 Days Reported Tizanidine Hcl 2 Mg Capsule 2 Mg PO HS Warfarin Sodium 2.5 Mg Tablet 2.5 Mg PO CONT PRN Amiodarone Hcl 200 Mg Tablet 1 Tab PO DAILY Aspirin 81 Mg Tab.chew 1 Tab PO DAILY Lisinopril 10 Mg Tablet 1 Tab PO DAILY Zetia (Ezetimibe) 10 Mg Tablet 10 Mg PO QEVNG Multivitamins (Multivitamin) 1 Each Tablet 1 Tab PO DAILY Calcium 600 + Vit D 200 Tablet (Calcium Carbonate/Vitamin D3) 1 Each Tablet 1 Each PO QEVNG Gabapentin (Gabapentin) 100 Mg Capsule 100 Mg PO HS Vitals/I & O Vital Sign - Last 24 Hours 05/31/19 05/31/19 05/31/19 05/31/19 11:38 15:00 19:00 23:00 Temp 97.6 97.8 98.2 98.2 97.6 97.8 98.2 98.2 Pulse 76 78 82 63 Resp 18 18 18 18 B/P (MAP) 125/46 (72) 120/56 (77) 115/53 (73) 125/46 (72) Pulse Ox 97 95 94 97 O2 Delivery Room Air Room Air Room Air Room Air O2 Flow Rate 2.0 2.0 06/01/19 06/01/19 06/01/19 06/01/19 03:00 07:00 08:02 08:02 Temp 98.2 97.8 98.2 97.8 Pulse 67 70 70 70 Resp 18 18 B/P (MAP) 101/49 (66) 134/58 (83) 134/58 134/58 Pulse Ox 94 97 O2 Delivery Room Air Room Air O2 Flow Rate 2.0 Intake and Output 05/31/19 05/31/19 06/01/19 14:59 22:59 06:59 Intake Total 120 ml 200 ml 0 ml Balance 120 ml 200 ml 0 ml Nutrition Consultation Dietary Evaluation: Recommendations by RD: Increase Calorie Intake, Protein supplementation Comments: REC continue chocolate ensure tid Expected Outcomes/Goals: to meet > 75% est nutr needs- met at times,goal ongoing Malnutrition Findings: Muscle Mass (Severe): Severe Depletion Body Fat Depletion (Non Severe: Mod to Severe Weight Status: Underweight MARIELENA RODRIGUEZ MD Jun 01, 2019 09:11
[2019-06-01 11:00] VITALS: BP 116/89
--- NOTE | 2019-06-01 11:01 | PDOC ---
Objective: Objective: 2 stools charted yesterday and today. Vital Signs: Vital Signs Date Time Temp Pulse Resp B/P (MAP) Pulse Ox O2 Delivery O2 Flow Rate FiO2 06/01/19 08:02 70 134/58 06/01/19 07:00 97.8 18 97 Room Air 97.8 06/01/19 03:00 2.0 Labs: Laboratory Tests Test 06/01/19 03:30 White Blood Count 3.3 x10^3/uL Red Blood Count 2.98 x10^6/uL Hemoglobin 8.3 g/dL Hematocrit 25.8 % Mean Corpuscular Volume 87 fL Mean Corpuscular Hemoglobin 28 pg Mean Corpuscular Hemoglobin Concent 32 g/dL Red Cell Distribution Width 19.4 % Platelet Count 160 x10^3/uL Neutrophils (%) (Auto) 61 % Lymphocytes (%) (Auto) 23 % Monocytes (%) (Auto) 12 % Eosinophils (%) (Auto) 3 % Basophils (%) (Auto) 1 % Neutrophils # (Auto) 2.0 x10^3/uL Lymphocytes # (Auto) 0.8 x10^3/uL Monocytes # (Auto) 0.4 x10^3/uL Eosinophils # (Auto) 0.1 x10^3/uL Basophils # (Auto) 0.0 x10^3/uL Prothrombin Time 14.8 SEC Prothromb Time International Ratio 1.2 Sodium Level 140 mmol/L Potassium Level 4.3 mmol/L Chloride Level 102 mmol/L Carbon Dioxide Level 29 mmol/L Anion Gap 9 Blood Urea Nitrogen 26 mg/dL Creatinine 1.4 mg/dL Estimated GFR (Cockcroft-Gault) 35.6 Glucose Level 87 mg/dL Calcium Level 8.7 mg/dL Imaging: CT A/P 05/27 IMPRESSION: 1. Nonobstructing left lower pole renal calculus. No definite ureteral calculus is identified. 2. Dense atherosclerotic calcifications of aorta with aneurysmal dilatation of the infrarenal aorta 3. Small gallstones or sludge are seen within the gallbladder dependently. 4. Hepatomegaly. High density of the liver is nonspecific but may be seen with hemachromatosis, amiodarone therapy and deposition disease. Renal US 05/27 IMPRESSION: 1. Small and echogenic appearance of the right kidney, consistent with atrophy. 2. The left kidney is grossly normal in appearance 3. Partially distended bladder is unremarkable. PE: GEN: NAD LUNGS: room air NEURO/PSYCH: asleep in chair, not awakened A/P: S/p vertebroplasty ELLA, hemoccult positive - stable, admitted w/ Coumadin coagulopathy (INR WNL, Warfarin held) w/o obvious GI bleeding H/o hematuria, CKD Constipation - resolved -- Stable from GI standpoint. Adjust constipation meds as needed. Continue PPI and iron. Previously discussed EGD and colonoscopy as outpt - she said she would consider. DC per primary. DORIE HAN Jun 01, 2019 11:01
--- NOTE | 2019-06-01 11:51 | NUR ---
SS following up with discharge planning. SS met with pt to discuss rehabilitation and discharge planning. SS was notified that pt would have a $285/day copay at [facility]. Pt is also in co-pay days for custodial unit. Pt reported that she wanted to go to custodial unit at [facility], ; fax [phone], and was agreeable to pay the co-pay. Pt reported that if she didn't go to custodial unit she would have to pay private duty services and would have to spend the money either way. operations planner phoned and faxed referral to [facility]. SS will await acceptance decision and insurance determination and will proceed accordingly with discharge planning.
--- NOTE | 2019-06-01 13:15 | PDOC ---
[employer] PROGRESS NOTE Chief Complaint Chief Complaint Elevated INR Recent hx L hip replacement surgery CKD4 Anemia of CKD AFib CAD HTN Hyperlipidemia Valve insufficiency History of Present Illness History of Present Illness 06/01/19 Pt seen/examined at bedside 05/31/19 Pt seen/examined at bedside Pt currently eating Pt seemed in good spirits today and is waiting on the telephonic case manager to determine where she will go next 05/30/19 Pt seen/examined sitting up in chair next to bed INR is trending down with it initially being 5.9, down to 1.3 today DW pt extensively her options moving forward She is concerned about going home and would like 24 hr care, but cannot afford it w/o insurance help 05/29/19 Pt seen/examined at bedside Pt alert and seems to be in less pain today following sacroplasty INR is trending down with it initially being 5.9 but down to 1.4 today 05/28/19 Pt seen/examined at bedside Clean/dry/intact L hip wound from hip replacement surgery Pt alert and asking when procedure would occur today (sacroplasty) Called IR who was on the way up Vitals/I&O Vitals/I&O: Vital Signs Date Time Temp Pulse Resp B/P (MAP) Pulse Ox O2 Delivery O2 Flow Rate FiO2 06/01/19 11:00 97.7 70 18 116/89 (98) 97 Room Air 97.7 06/01/19 03:00 2.0 I & O 05/31/19 05/31/19 06/01/19 14:59 22:59 06:59 Intake Total 120 ml 200 ml 0 ml Balance 120 ml 200 ml 0 ml Physical Exam General: Alert, Cooperative, No acute distress Heart: Regular rate, Normal S1, Normal S2 Lungs: Clear Abdomen: Normal bowel sounds, Soft Extremities: No clubbing, No cyanosis, Normal pulses Skin: No rashes, No breakdown Labs Labs: Laboratory Tests Test 06/01/19 03:30 White Blood Count 3.3 x10^3/uL (4.0-11.0) Red Blood Count 2.98 x10^6/uL (3.50-5.40) Hemoglobin 8.3 g/dL (12.0-15.5) Hematocrit 25.8 % (36.0-47.0) Mean Corpuscular Volume 87 fL (79-100) Mean Corpuscular Hemoglobin 28 pg (25-35) Mean Corpuscular Hemoglobin Concent 32 g/dL (31-37) Red Cell Distribution Width 19.4 % (11.5-14.5) Platelet Count 160 x10^3/uL (140-400) Neutrophils (%) (Auto) 61 % (31-73) Lymphocytes (%) (Auto) 23 % (24-48) Monocytes (%) (Auto) 12 % (0-9) Eosinophils (%) (Auto) 3 % (0-3) Basophils (%) (Auto) 1 % (0-3) Neutrophils # (Auto) 2.0 x10^3/uL (1.8-7.7) Lymphocytes # (Auto) 0.8 x10^3/uL (1.0-4.8) Monocytes # (Auto) 0.4 x10^3/uL (0.0-1.1) Eosinophils # (Auto) 0.1 x10^3/uL (0.0-0.7) Basophils # (Auto) 0.0 x10^3/uL (0.0-0.2) Prothrombin Time 14.8 SEC (11.7-14.0) Prothromb Time International Ratio 1.2 (0.8-1.1) Sodium Level 140 mmol/L (136-145) Potassium Level 4.3 mmol/L (3.5-5.1) Chloride Level 102 mmol/L (98-107) Carbon Dioxide Level 29 mmol/L (21-32) Anion Gap 9 (6-14) Blood Urea Nitrogen 26 mg/dL (7-20) Creatinine 1.4 mg/dL (0.6-1.0) Estimated GFR (Cockcroft-Gault) 35.6 Glucose Level 87 mg/dL (70-99) Calcium Level 8.7 mg/dL (8.5-10.1) Review of Systems Review of Systems: No co pain No co fatigue Assessment and Plan Assessmemt and Plan Problems Medical Problems: (1) Acute renal insufficiency Status: Acute (2) Anemia Status: Chronic (3) Back pain Status: Acute (4) CAD (coronary artery disease) Status: Chronic (5) CKD (chronic kidney disease), stage IV Status: Chronic (6) Elevated INR Status: Acute (7) Heart valve insufficiency Status: Acute (8) HLD (hyperlipidemia) Status: Chronic (9) HTN (hypertension) Status: Chronic (10) Paroxysmal atrial fibrillation Status: Chronic (11) Peripheral neuropathy Status: Chronic (12) Sacral fracture Status: Acute (13) T12 compression fracture Status: Acute Assessment Elevated INR Recent hx L hip replacement surgery CKD4 Anemia of CKD AFib CAD HTN Hyperlipidemia Valve insufficiency Plan DVT prophylaxis Home meds PT/OT to increase strength and confidence with going home Appreciate subspecialist input Discharge to SNU if bed available Comment Review of Relevant I have reviewed the following items jaziel (where applicable) has been applied. CHIQUIS THAYER III DO Jun 01, 2019 13:15
--- NOTE | 2019-06-01 13:32 | SNU/HH DC ---
DISCHARGE ORDERS DISCHARGE INFORMATION: FINAL DIAGNOSIS Problems Medical Problems: (1) Acute renal insufficiency Status: Acute (2) Anemia Status: Chronic (3) Back pain Status: Acute (4) CAD (coronary artery disease) Status: Chronic (5) CKD (chronic kidney disease), stage IV Status: Chronic (6) Elevated INR Status: Acute (7) Heart valve insufficiency Status: Acute (8) HLD (hyperlipidemia) Status: Chronic (9) HTN (hypertension) Status: Chronic (10) Paroxysmal atrial fibrillation Status: Chronic (11) Peripheral neuropathy Status: Chronic (12) Sacral fracture Status: Acute (13) T12 compression fracture Status: Acute CONDITION ON DISCHARGE: Stable CODE STATUS: Code Status: Full MCFP: SNF STAY <30 DAYS: Yes HOSPICE: HOSPICE: No HOSPICE EVAL & TREAT: No LTAC: ADMIT TO LTAC: No POST DISCHARGE ORDERS: ACTIVITY ORDERS: Activity as tolerated DIET AFTER DISCHARGE: Cardiac TREATMENT/EQUIPMENT ORDERS: Physical Therapy For: Evalulation/Treatment Occupational Therapy For: Evaluation/Treatment DISCHARGE MEDICATIONS: Home Meds Active Scripts [Pantoprazole] 40 MG TABLET.DR Almeida Conflict Check, 40 MG PO DAILYAC for 30 Days, #30 Prov:CANDI KISER MD 04/06/19 Bisacodyl (BISACODYL) 10 Mg Supp.rect, 10 MG CO PRN DAILY PRN for CONSTIPATION for 14 Days, #10 SUPP.RECT Prov:CANDI KISER MD 04/06/19 Hydrocodone Bit/Acetaminophen (HYDROCODONE-APAP 5-325 ) 1 Tab Tablet, 1 TAB PO PRN Q4HRS PRN for MODERATE PAIN for 14 Days, #60 TAB Prov:CANDI KISER MD 04/06/19 Cyclobenzaprine Hcl (CYCLOBENZAPRINE HCL) 10 Mg Tablet, 5 MG PO PRN Q12HR PRN for MUSCLE SPASMS for 7 Days, #14 TAB Prov:CANDI KISER MD 04/06/19 Reported Medications Tizanidine Hcl (TIZANIDINE HCL) 2 Mg Capsule, 2 MG PO HS for muscle spasms, CAP 05/25/19 Warfarin Sodium (WARFARIN SODIUM) 2.5 Mg Tablet, 2.5 MG PO CONT PRN for afib, TAB 04/01/19 Amiodarone Hcl (AMIODARONE HCL) 200 Mg Tablet, 1 TAB PO DAILY for heart, #90 TAB 1 Refill 04/01/19 Aspirin (ASPIRIN) 81 Mg Tab.chew, 1 TAB PO DAILY for heart , #30 TAB 3 Refills 04/01/19 Lisinopril (LISINOPRIL) 10 Mg Tablet, 1 TAB PO DAILY for htn, #30 TAB 5 Refills 04/01/19 Ezetimibe (ZETIA) 10 Mg Tablet, 10 MG PO QEVNG, TAB 07/21/18 Multivitamin (MULTIVITAMINS) 1 Each Tablet, 1 TAB PO DAILY, #30 TAB 2 Refills 07/21/18 Calcium Carbonate/Vitamin D3 (CALCIUM 600 + VIT D 200 TABLET) 1 Each Tablet, 1 EACH PO QEVNG, TAB 07/21/18 Gabapentin (GABAPENTIN ) 100 Mg Capsule, 100 MG PO HS for Neuropathy, CAP 07/21/18 CHIQUIS THAYER III DO Jun 01, 2019 13:32
[2019-06-01 15:00] VITALS: BP 115/56
[2019-06-01] MEDS: EZETIMIBE 10 MG TABLET. PO SCH (17:15)
[2019-06-01 19:00] VITALS: BP 114/47
[2019-06-01] MEDS: HYDROcodone/APAP 5/325MG 1 TAB TABLET PO PRN (19:30)
[2019-06-01] MEDS: PATCH REMOVAL. MC SCH (20:47)
[2019-06-01] MEDS: tiZANidine 4 MG TABLET. PO SCH (20:47)
[2019-06-01] MEDS: GABAPENTIN 100 MG CAPSULE. PO SCH (20:47)
[2019-06-01 23:00] VITALS: BP 89/41
[2019-06-02 03:00] VITALS: BP 126/62
[2019-06-02] MEDS: ASPIRIN CHEWABLE 81 MG TABLET. PO SCH (07:56)
[2019-06-02] MEDS: CHOLECALCIFEROL (VITAMIN D3) 5,000 UNIT CAPSULE PO SCH (07:56)
[2019-06-02] MEDS: LUBIPROSTONE 8 MCG CAPSULE PO SCH (07:56)
[2019-06-02] MEDS: IRON POLYSACCHARIDE COMPLEX 150 MG CAPSULE PO SCH (07:56)
[2019-06-02] MEDS: PANTOPRAZOLE 40 MG TABLET.DR. PO SCH (07:56)
[2019-06-02] MEDS: AMIODARONE HCL 200 MG TABLET. PO SCH (07:57)
[2019-06-02] MEDS: POLYETHYLENE GLYCOL 3350 17 GM PACKET. PO SCH (07:58)
[2019-06-02] MEDS: LISINOPRIL 10 MG TABLET PO SCH (07:58)
[2019-06-02 08:00] VITALS: BP 129/59
[2019-06-02] MEDS: LIDOCAINE (700MG/PATCH) PATCH. TD SCH (08:00)
[2019-06-02 08:10] LABS: BASO % 1 % (0-3); EOS # 0.1 x10^3/uL (0.0-0.7); EOS % 5 % (0-3); HEMATOCRIT 23.6 % (36.0-47.0); HEMOGLOBIN 7.4 g/dL (12.0-15.5); LYMPH # 0.6 x10^3/uL (1.0-4.8); LYMPH % 19 % (24-48); MEAN CORPUSCULAR HEMOGLOBIN 28 pg (25-35); MEAN CORPUSCULAR HGB CONC 32 g/dL (31-37); MEAN CORPUSCULAR VOLUME 87 fL (79-100); MONO # 0.4 x10^3/uL (0.0-1.1); MONO % 12 % (0-9); NEUT # 1.9 x10^3/uL (1.8-7.7); NEUT % 63 % (31-73); PLATELET COUNT 159 x10^3/uL (140-400); RED CELL DISTRIBUTION WIDTH 19.6 % (11.5-14.5); WHITE BLOOD COUNT 3.1 x10^3/uL (4.0-11.0)
[2019-06-02 08:30] LABS: CALCIUM 8.3 mg/dL (8.5-10.1); CREATININE 1.5 mg/dL (0.6-1.0); GFR 32.8; POTASSIUM 4.2 mmol/L (3.5-5.1)
--- NOTE | 2019-06-02 09:02 | PDOC ---
Subjective: Subjective: No GI complaints. Objective: Vital Signs: Vital Signs Date Time Temp Pulse Resp B/P (MAP) Pulse Ox O2 Delivery O2 Flow Rate FiO2 06/02/19 08:00 65 129/59 06/02/19 08:00 97.9 18 93 Room Air 97.9 Labs: Laboratory Tests Test 06/02/19 07:33 White Blood Count 3.1 x10^3/uL Red Blood Count 2.70 x10^6/uL Hemoglobin 7.4 g/dL Hematocrit 23.6 % Mean Corpuscular Volume 87 fL Mean Corpuscular Hemoglobin 28 pg Mean Corpuscular Hemoglobin Concent 32 g/dL Red Cell Distribution Width 19.6 % Platelet Count 159 x10^3/uL Neutrophils (%) (Auto) 63 % Lymphocytes (%) (Auto) 19 % Monocytes (%) (Auto) 12 % Eosinophils (%) (Auto) 5 % Basophils (%) (Auto) 1 % Neutrophils # (Auto) 1.9 x10^3/uL Lymphocytes # (Auto) 0.6 x10^3/uL Monocytes # (Auto) 0.4 x10^3/uL Eosinophils # (Auto) 0.1 x10^3/uL Basophils # (Auto) 0.0 x10^3/uL Sodium Level 142 mmol/L Potassium Level 4.2 mmol/L Chloride Level 107 mmol/L Carbon Dioxide Level 30 mmol/L Anion Gap 5 Blood Urea Nitrogen 28 mg/dL Creatinine 1.5 mg/dL Estimated GFR (Cockcroft-Gault) 32.8 Glucose Level 86 mg/dL Calcium Level 8.3 mg/dL PE: GEN: NAD,r esting LUNGS: CTAB HEART: RRR +murm ABD: S/ND/NT NEURO/PSYCH: A & O �3 A/P: S/p vertebroplasty ELLA, hemoccult positive - Hgb in 7-8 range (drifted from yesterday), no obvious GI bleeding H/o A Fib - Warfarin held H/o hematuria, CKD -- Continue PPI, iron, and Amitiza. Outpt 'scopes. Warfarin per primary/ DC per primary. DORIE HAN Jun 02, 2019 09:02
[2019-06-02] MEDS ORDERED: POLYETHYLENE GLYCOL 3350 17 GM PACKET. PO PRN (09:15)
--- NOTE | 2019-06-02 09:27 | PDOC ---
PROGRESS NOTES Subjective Subjective Low back pain only with movement. Objective Objective Vital Signs Date Time Temp Pulse Resp B/P (MAP) Pulse Ox O2 Delivery O2 Flow Rate FiO2 06/02/19 08:00 65 129/59 06/02/19 08:00 97.9 18 93 Room Air 97.9 06/01/19 03:00 2.0 Intake and Output 06/02/19 07:00 Intake Total 900 ml Balance 900 ml Intake Oral 900 ml # Voids 6 # Bowel Movements 1 Physical Exam Physical Exam She is resting comfortably supine in bed and she did walk for 80' with physical therapy using roller walker. Assessment Assessment Problems Medical Problems: (1) Acute renal insufficiency Status: Acute (2) Anemia Status: Chronic (3) Back pain Status: Acute (4) CAD (coronary artery disease) Status: Chronic (5) CKD (chronic kidney disease), stage IV Status: Chronic (6) Elevated INR Status: Acute (7) Heart valve insufficiency Status: Acute (8) HLD (hyperlipidemia) Status: Chronic (9) HTN (hypertension) Status: Chronic (10) Paroxysmal atrial fibrillation Status: Chronic (11) Peripheral neuropathy Status: Chronic (12) Sacral fracture Status: Acute (13) T12 compression fracture Status: Acute Plan Plan of Care Agree with plans for transfer to SNF when arrangements are completed. Comment Review of Relevant I have reviewed the following items jaziel (where applicable) has been applied. Labs Laboratory Tests Test 06/01/19 03:30 06/02/19 07:33 White Blood Count 3.3 x10^3/uL (4.0-11.0) 3.1 x10^3/uL (4.0-11.0) Red Blood Count 2.98 x10^6/uL (3.50-5.40) 2.70 x10^6/uL (3.50-5.40) Hemoglobin 8.3 g/dL (12.0-15.5) 7.4 g/dL (12.0-15.5) Hematocrit 25.8 % (36.0-47.0) 23.6 % (36.0-47.0) Mean Corpuscular Volume 87 fL (79-100) 87 fL (79-100) Mean Corpuscular Hemoglobin 28 pg (25-35) 28 pg (25-35) Mean Corpuscular Hemoglobin Concent 32 g/dL (31-37) 32 g/dL (31-37) Red Cell Distribution Width 19.4 % (11.5-14.5) 19.6 % (11.5-14.5) Platelet Count 160 x10^3/uL (140-400) 159 x10^3/uL (140-400) Neutrophils (%) (Auto) 61 % (31-73) 63 % (31-73) Lymphocytes (%) (Auto) 23 % (24-48) 19 % (24-48) Monocytes (%) (Auto) 12 % (0-9) 12 % (0-9) Eosinophils (%) (Auto) 3 % (0-3) 5 % (0-3) Basophils (%) (Auto) 1 % (0-3) 1 % (0-3) Neutrophils # (Auto) 2.0 x10^3/uL (1.8-7.7) 1.9 x10^3/uL (1.8-7.7) Lymphocytes # (Auto) 0.8 x10^3/uL (1.0-4.8) 0.6 x10^3/uL (1.0-4.8) Monocytes # (Auto) 0.4 x10^3/uL (0.0-1.1) 0.4 x10^3/uL (0.0-1.1) Eosinophils # (Auto) 0.1 x10^3/uL (0.0-0.7) 0.1 x10^3/uL (0.0-0.7) Basophils # (Auto) 0.0 x10^3/uL (0.0-0.2) 0.0 x10^3/uL (0.0-0.2) Prothrombin Time 14.8 SEC (11.7-14.0) Prothromb Time International Ratio 1.2 (0.8-1.1) Sodium Level 140 mmol/L (136-145) 142 mmol/L (136-145) Potassium Level 4.3 mmol/L (3.5-5.1) 4.2 mmol/L (3.5-5.1) Chloride Level 102 mmol/L (98-107) 107 mmol/L (98-107) Carbon Dioxide Level 29 mmol/L (21-32) 30 mmol/L (21-32) Anion Gap 9 (6-14) 5 (6-14) Blood Urea Nitrogen 26 mg/dL (7-20) 28 mg/dL (7-20) Creatinine 1.4 mg/dL (0.6-1.0) 1.5 mg/dL (0.6-1.0) Estimated GFR (Cockcroft-Gault) 35.6 32.8 Glucose Level 87 mg/dL (70-99) 86 mg/dL (70-99) Calcium Level 8.7 mg/dL (8.5-10.1) 8.3 mg/dL (8.5-10.1) Laboratory Tests Test 06/02/19 07:33 White Blood Count 3.1 x10^3/uL (4.0-11.0) Red Blood Count 2.70 x10^6/uL (3.50-5.40) Hemoglobin 7.4 g/dL (12.0-15.5) Hematocrit 23.6 % (36.0-47.0) Mean Corpuscular Volume 87 fL (79-100) Mean Corpuscular Hemoglobin 28 pg (25-35) Mean Corpuscular Hemoglobin Concent 32 g/dL (31-37) Red Cell Distribution Width 19.6 % (11.5-14.5) Platelet Count 159 x10^3/uL (140-400) Neutrophils (%) (Auto) 63 % (31-73) Lymphocytes (%) (Auto) 19 % (24-48) Monocytes (%) (Auto) 12 % (0-9) Eosinophils (%) (Auto) 5 % (0-3) Basophils (%) (Auto) 1 % (0-3) Neutrophils # (Auto) 1.9 x10^3/uL (1.8-7.7) Lymphocytes # (Auto) 0.6 x10^3/uL (1.0-4.8) Monocytes # (Auto) 0.4 x10^3/uL (0.0-1.1) Eosinophils # (Auto) 0.1 x10^3/uL (0.0-0.7) Basophils # (Auto) 0.0 x10^3/uL (0.0-0.2) Sodium Level 142 mmol/L (136-145) Potassium Level 4.2 mmol/L (3.5-5.1) Chloride Level 107 mmol/L (98-107) Carbon Dioxide Level 30 mmol/L (21-32) Anion Gap 5 (6-14) Blood Urea Nitrogen 28 mg/dL (7-20) Creatinine 1.5 mg/dL (0.6-1.0) Estimated GFR (Cockcroft-Gault) 32.8 Glucose Level 86 mg/dL (70-99) Calcium Level 8.3 mg/dL (8.5-10.1) Medications Current Medications Acetaminophen (Tylenol) 1,000 mg 1X ONCE PO Last administered on 05/25/19 16:23; Start 05/25/19 at 16:00; Stop 05/25/19 at 16:01; Status DC Fentanyl Citrate (Fentanyl 2ml Vial) 25 mcg 1X ONCE IV Last administered on 05/25/19 16:23; Start 05/25/19 at 16:15; Stop 05/25/19 at 16:16; Status DC Amiodarone HCl (Cordarone) 200 mg DAILY PO Last administered on 06/02/19 08:00; Start 05/26/19 at 09:00 Aspirin (Children'S Aspirin) 81 mg DAILY PO Last administered on 06/02/19 08:00; Start 05/26/19 at 09:00 Bisacodyl (Dulcolax Supp) 10 mg PRN DAILY PRN IA CONSTIPATION; Start 05/25/19 at 19:30 Cyclobenzaprine HCl (Flexeril) 5 mg PRN Q12HR PRN PO MUSCLE SPASMS Last administered on 06/01/19 00:14; Start 05/25/19 at 19:30 EZETIMIBE (Zetia) 10 mg QEVNG PO Last administered on 06/01/19 17:15; Start 05/26/19 at 18:00 Gabapentin (Neurontin) 100 mg HS PO Last administered on 06/01/19 20:48; Start 05/25/19 at 21:00 Acetaminophen/ Hydrocodone Bitart (Lortab 5/325) 1 tab PRN Q4HRS PRN PO MODERATE PAIN Last administered on 06/01/19 19:32; Start 05/25/19 at 19:30 Lisinopril (Prinivil) 10 mg DAILY PO Last administered on 06/02/19 08:00; Start 05/26/19 at 09:00 Pantoprazole Sodium (Protonix) 40 mg DAILYAC PO Last administered on 06/02/19 08:00; Start 05/26/19 at 07:30 Fentanyl Citrate (Fentanyl 2ml Vial) 25 mcg 1X ONCE IV Last administered on 05/25/19 19:46; Start 05/25/19 at 19:45; Stop 05/25/19 at 19:46; Status DC Phytonadione (Mephyton Oral Soln) 5 mg 1X ONCE PO Last administered on 05/25/19 21:04; Start 05/25/19 at 20:15; Stop 05/25/19 at 20:16; Status DC Vitamin D (Vitamin D3) 5,000 unit DAILY PO Last administered on 06/02/19 08:00; Start 05/26/19 at 09:00 Tizanidine HCl (Zanaflex) 2 mg HS PO Last administered on 06/01/19 20:48; Start 05/26/19 at 21:00 Tizanidine HCl (Zanaflex) 2 mg 1X ONCE PO Last administered on 05/26/19 02:29; Start 05/25/19 at 23:55; Stop 05/25/19 at 23:57; Status DC Polysaccharide Iron Complex (Niferex 150) 150 mg BID PO Last administered on 06/02/19 08:00; Start 05/26/19 at 21:00; Stop 06/02/19 at 09:01; Status DC Lidocaine (Lidoderm) 1 patch DAILY TD Last administered on 06/02/19 08:00; S tart 05/26/19 at 10:00 Miscellaneous (Lidoderm Patch Removal) 1 ea [facility] Last administered on 06/01/19 20:48; Start 05/26/19 at 21:00 Phytonadione (Vitamin K Ampule) 5 mg 1X ONCE SQ Last administered on 05/26/19 17:20; Start 05/26/19 at 16:00; Stop 05/26/19 at 16:01; Status DC Polyethylene Glycol (miraLAX PACKET) 17 gm DAILY PO Last administered on 05/29/19 09:45; Start 05/27/19 at 16:00; Stop 05/29/19 at 13:10; Status DC Phytonadione (Vitamin K Ampule) 5 mg 1X ONCE SQ Last administered on 05/27/19at 22:00; Start 05/27/19 at 20:15; Stop 05/27/19 at 20:16; Status DC Lidocaine/Sodium Bicarbonate (Buffered Lidocaine 1%) 3 ml STK-MED ONCE .ROUTE ; Start 05/28/19 at 09:23; Stop 05/28/19 at 09:23; Status DC Cefazolin Sodium 50 ml @ As Directed STK-MED ONCE IV ; Start 05/28/19 at 09:51; Stop 05/28/19 at 09:51; Status DC Midazolam HCl (Versed) 2 mg STK-MED ONCE .ROUTE ; Start 05/28/19 at 09:51; Stop 05/28/19 at 09:51; Status DC Fentanyl Citrate (Fentanyl 2ml Vial) 100 mcg STK-MED ONCE .ROUTE ; Start at 09:51; Stop 05/28/19 at 09:51; Status DC Lidocaine/Sodium Bicarbonate (Buffered Lidocaine 1%) 6 ml 1X ONCE IJ Last a dministered on 05/28/19at 10:46; Start 05/28/19 at 10:45; Stop 05/28/19 at 10:46; Status DC Midazolam HCl (Versed) 2 mg 1X ONCE IV Last administered on 05/28/19at 10:41; Start 05/28/19 at 10:45; Stop 05/28/19 at 10:46; Status DC Fentanyl Citrate (Fentanyl 2ml Vial) 100 mcg 1X ONCE IV Last administered on 05/28/19at 10:41; Start 05/28/19 at 10:45; Stop 05/28/19 at 10:46; Status DC Cefazolin Sodium 50 ml @ 100 mls/hr 1X ONCE IV Last administered on 05/28/19at 10:46; Start 05/28/19 at 10:45; Stop 05/28/19 at 11:14; Status DC Warfarin Sodium (Coumadin) 2.5 mg 1X WARF ONCE PO Last administered on 05/28/19at 17:31; Start 05/28/19 at 18:00; Stop 05/28/19 at 18:01; Status DC Warfarin Sodium (Coumadin Per Pharmacy) 1 each PRN DAILY PRN MC SEE COMMENTS Last administered on 05/30/19at 17:13; Start 05/28/19 at 17:00; Stop 05/31/19 at 10:10; Status DC Polyethylene Glycol (miraLAX PACKET) 17 gm BID PO Last administered on 05/30/19at 09:39; Start 05/29/19 at 21:00; Stop 06/02/19 at 09:01; Status DC Bisacodyl (Dulcolax Tab) 10 mg 1X ONCE PO ; Start 05/29/19 at 13:15; Stop 05/29/19 at 13:16; Status DC Lubiprostone (Amitiza) 8 mcg BIDWMEALS PO Last administered on 06/02/19at 08:00; Start 05/29/19 at 17:00 Warfarin Sodium (Coumadin) 5 mg 1X WARF ONCE PO Last administered on 05/29/19at 17:31; Start 05/29/19 at 16:00; Stop 05/29/19 at 16:01; Status DC Warfarin Sodium (Coumadin) 4 mg 1X WARF ONCE PO ; Start 05/30/19 at 17:30; Stop 05/30/19 at 17:31; Status DC Polyethylene Glycol (miraLAX PACKET) 17 gm PRN BID PRN PO CONSTIPATION; Start 06/02/19 at 09:15 Ferrous Sulfate (Feosol) 325 mg BIDWMEALS PO ; Start 06/02/19 at 17:00 Active Scripts Active [Pantoprazole] 40 MG Tablet.dr 40 Mg PO DAILYAC 30 Days Bisacodyl 10 Mg Supp.rect 10 Mg IA PRN DAILY PRN 14 Days Hydrocodone-Apap 5-325 (Hydrocodone Bit/Acetaminophen) 1 Tab Tablet 1 Tab PO PRN Q4HRS PRN 14 Days Cyclobenzaprine Hcl 10 Mg Tablet 5 Mg PO PRN Q12HR PRN 7 Days Reported Tizanidine Hcl 2 Mg Capsule 2 Mg PO HS Warfarin Sodium 2.5 Mg Tablet 2.5 Mg PO CONT PRN Amiodarone Hcl 200 Mg Tablet 1 Tab PO DAILY Aspirin 81 Mg Tab.chew 1 Tab PO DAILY Lisinopril 10 Mg Tablet 1 Tab PO DAILY Zetia (Ezetimibe) 10 Mg Tablet 10 Mg PO QEVNG Multivitamins (Multivitamin) 1 Each Tablet 1 Tab PO DAILY Calcium 600 + Vit D 200 Tablet (Calcium Carbonate/Vitamin D3) 1 Each Tablet 1 Each PO QEVNG Gabapentin (Gabapentin) 100 Mg Capsule 100 Mg PO HS Vitals/I & O Vital Sign - Last 24 Hours 06/01/19 06/01/19 06/01/19 06/01/19 11:00 15:00 19:00 20:00 Temp 97.7 97.8 98.7 97.7 97.8 98.7 Pulse 70 73 75 Resp 18 18 16 B/P (MAP) 116/89 (98) 115/56 (75) 114/47 (69) Pulse Ox 97 94 95 O2 Delivery Room Air Room Air Room Air Room Air 06/01/19 06/02/19 06/02/19 06/02/19 23:00 03:00 08:00 08:00 Temp 98.3 98.0 97.9 98.3 98.0 97.9 Pulse 84 69 65 65 Resp 15 16 18 B/P (MAP) 89/41 (57) 126/62 (83) 129/59 (82) 129/59 Pulse Ox 100 98 93 O2 Delivery Room Air Room Air 06/02/19 08:00 Pulse 65 B/P (MAP) 129/59 Intake and Output 06/01/19 06/01/19 06/02/19 15:00 23:00 07:00 Intake Total 600 ml 300 ml Balance 600 ml 300 ml Nutrition Consultation Dietary Evaluation: Recommendations by RD: Increase Calorie Intake, Protein supplementation Comments: REC continue chocolate ensure tid Expected Outcomes/Goals: to meet > 75% est nutr needs- met at times,goal ongoing Malnutrition Findings: Muscle Mass (Severe): Severe Depletion Body Fat Depletion (Non Severe: Mod to Severe Weight Status: Underweight MARIELENA RODRIGUEZ MD Jun 02, 2019 09:27
--- NOTE | 2019-06-02 10:49 | PDOC ---
[employer] PROGRESS NOTE Chief Complaint Chief Complaint Elevated INR Recent hx L hip replacement surgery CKD4 Anemia of CKD AFib CAD HTN Hyperlipidemia Valve insufficiency History of Present Illness History of Present Illness 06/02/19 Pt seen and examined at bedside 06/01/19 Pt seen/examined at bedside 05/31/19 Pt seen/examined at bedside Pt currently eating Pt seemed in good spirits today and is waiting on the wrapper caser to determine where she will go next 05/30/19 Pt seen/examined sitting up in chair next to bed INR is trending down with it initially being 5.9, down to 1.3 today DW pt extensively her options moving forward She is concerned about going home and would like 24 hr care, but cannot afford it w/o insurance help 05/29/19 Pt seen/examined at bedside Pt alert and seems to be in less pain today following sacroplasty INR is trending down with it initially being 5.9 but down to 1.4 today 05/28/19 Pt seen/examined at bedside Clean/dry/intact L hip wound from hip replacement surgery Pt alert and asking when procedure would occur today (sacroplasty) Called IR who was on the way up Vitals/I&O Vitals/I&O: Vital Signs Date Time Temp Pulse Resp B/P (MAP) Pulse Ox O2 Delivery O2 Flow Rate FiO2 06/02/19 08:00 65 129/59 06/02/19 08:00 97.9 18 93 Room Air 97.9 I & O 06/01/19 06/01/19 06/02/19 15:00 23:00 07:00 Intake Total 600 ml 300 ml Balance 600 ml 300 ml Physical Exam General: Alert, Cooperative, No acute distress Heart: Regular rate, Normal S1, Normal S2 Lungs: Clear Abdomen: Normal bowel sounds, Soft Extremities: No clubbing, No cyanosis, Normal pulses Skin: No rashes, No breakdown Labs Labs: Laboratory Tests Test 06/02/19 07:33 White Blood Count 3.1 x10^3/uL (4.0-11.0) Red Blood Count 2.70 x10^6/uL (3.50-5.40) Hemoglobin 7.4 g/dL (12.0-15.5) Hematocrit 23.6 % (36.0-47.0) Mean Corpuscular Volume 87 fL (79-100) Mean Corpuscular Hemoglobin 28 pg (25-35) Mean Corpuscular Hemoglobin Concent 32 g/dL (31-37) Red Cell Distribution Width 19.6 % (11.5-14.5) Platelet Count 159 x10^3/uL (140-400) Neutrophils (%) (Auto) 63 % (31-73) Lymphocytes (%) (Auto) 19 % (24-48) Monocytes (%) (Auto) 12 % (0-9) Eosinophils (%) (Auto) 5 % (0-3) Basophils (%) (Auto) 1 % (0-3) Neutrophils # (Auto) 1.9 x10^3/uL (1.8-7.7) Lymphocytes # (Auto) 0.6 x10^3/uL (1.0-4.8) Monocytes # (Auto) 0.4 x10^3/uL (0.0-1.1) Eosinophils # (Auto) 0.1 x10^3/uL (0.0-0.7) Basophils # (Auto) 0.0 x10^3/uL (0.0-0.2) Sodium Level 142 mmol/L (136-145) Potassium Level 4.2 mmol/L (3.5-5.1) Chloride Level 107 mmol/L (98-107) Carbon Dioxide Level 30 mmol/L (21-32) Anion Gap 5 (6-14) Blood Urea Nitrogen 28 mg/dL (7-20) Creatinine 1.5 mg/dL (0.6-1.0) Estimated GFR (Cockcroft-Gault) 32.8 Glucose Level 86 mg/dL (70-99) Calcium Level 8.3 mg/dL (8.5-10.1) Review of Systems Review of Systems: No co vision changes No co SOB Assessment and Plan Assessmemt and Plan Problems Medical Problems: (1) Acute renal insufficiency Status: Acute (2) Anemia Status: Chronic (3) Back pain Status: Acute (4) CAD (coronary artery disease) Status: Chronic (5) CKD (chronic kidney disease), stage IV Status: Chronic (6) Elevated INR Status: Acute (7) Heart valve insufficiency Status: Acute (8) HLD (hyperlipidemia) Status: Chronic (9) HTN (hypertension) Status: Chronic (10) Paroxysmal atrial fibrillation Status: Chronic (11) Peripheral neuropathy Status: Chronic (12) Sacral fracture Status: Acute (13) T12 compression fracture Status: Acute Assessment Elevated INR Recent hx L hip replacement surgery CKD4 Anemia of CKD AFib CAD HTN Hyperlipidemia Valve insufficiency Plan DVT prophylaxis Home meds PT/OT to increase strength and confidence with going home Appreciate subspecialist input Discharge to SNU if bed available Comment Review of Relevant I have reviewed the following items jaziel (where applicable) has been applied. CHIQUIS THAYER III DO Jun 02, 2019 10:49
[2019-06-02 10:52] VITALS: BP 127/62
--- NOTE | 2019-06-02 11:36 | DS ---
DATE OF DISCHARGE: 06/02/2019 ADMISSION DIAGNOSES: Elevated INR and weakness and back pain. DISCHARGE DIAGNOSES: 1. Resolving elevated INR (we went ahead and stopped her Coumadin because she is a fall risk. The patient agrees and really wanted to come off the Coumadin anyway). 2. History of recent left hip replacement, chronic kidney disease, anemia, atrial fibrillation, coronary artery disease, hypertension, hyperlipidemia, and valvular heart disease. CONSULTS: Dr. Siddiqui, Dr. Fisher, Dr. Aguirre, and Dr. Quijano. PROCEDURES: None. HOSPITAL COURSE: The patient is a pleasant elderly female who presented with weakness, was noted to have an elevated INR. We held her Coumadin, did some physical therapy and occupational therapy. The above consults were obtained. We have taken off of her Coumadin both by her choice and we certainly agree because she is probably a high fall risk. 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 Clinically, over the past few days, she has improved, but she still debilitated. I saw him and examined this morning. Her heart tones are normal. Lungs were clear. We plan to discharge to residential. DISPOSITION: Skilled. ACTIVITY: As tolerated. MEDICATIONS: Please see MRAD. TOTAL TIME: 34 minutes. CHIQUIS THAYER DO DR: ELBA/raphael JOB#: [id number] / [id number]
[2019-06-02] MEDS: HYDROcodone/APAP 5/325MG 1 TAB TABLET PO PRN (14:39)
--- NOTE | 2019-06-02 15:10 | NUR ---
POONAM following pt. Insurance denied SNU and pt is provided with copy of denial letter. Pt and son declined to proceed with appeal. Resumption order faxed to [facility]. POONAM provided pt with information on private home care services. Discussed with RN.
--- NOTE | 2019-06-02 15:22 | NUR ---
This RN called in Amitiza 8 mcg PO BID w/ meals. This RN spoke with the pharmacist,
--- NOTE | 2019-06-02 15:24 | NUR ---
Pt discharged at approx 1520. This technical document writer spoke extensively with pt and her son about plans after discharge, home medications, and follow-up appt. Questions and concerns addressed. Pt stable upon discharge. Pt left by wheelchair via private vehicle with her son.
[2019-06-02] MEDS ORDERED: FERROUS SULFATE 325 MG TABLET. PO SCH (17:00)
--- NOTE | 2019-06-22 12:19 | RAD ---
CT-guided sacral plasty, left-sided Indication:Sacral fracture, persistent pain refractory to conservative treatment measures Moderate sedation: The patient was appropriately monitored by a qualified independent observer throughout the course of the moderate sedation. [id number] sedation time:35 minutes Consent: The risks and benefits of the procedure were discussed with the patient and her family members.. Informed consent was obtained. The patient was brought to the CT suite and placed in the prone position. A timeout procedure was performed. Preprocedural antibiotics were administered. Procedure: CT imaging was repeated demonstrating a left-sided sacral fracture. The overlying skin was prepped and draped in the usual sterile fashion. All elements of maximal sterile barrier technique including the use of a cap, mask, sterile gown, sterile gloves, large sterile sheet, appropriate hand hygiene, and 2% chlorhexidine for cutaneous antisepsis (or acceptable alternative antiseptic per current guidelines) were followed for this procedure. Cement delivery needle was advanced into the lateral left sacrum extending towards the alar region. Once in position methylmethacrylate bone cement was slowly administered through the needle into the sacrum. This partially filled sacral medullary space without evidence of extravasation. Once adequate filling had been achieved the needle was removed and manual pressure was held. No significant extravasation or complication was identified. Sterile dressing was applied. Patient tolerated the procedure well, without apparent complication. Impression: CT-guided left sacral plasty PQRS Compliance Statement: One or more of the following individualized dose reduction techniques were utilized for this examination: 1. Automated exposure control 2. Adjustment of the mA and/or kV according to patient size 3. Use of iterative reconstruction technique
== END 2019-06-02 15:29 | disposition home health service (06) | DRG 515 ==
LOC: ER 15:23 → 6 SOUTH 18:14 → 5 SOUTH 05-29 22:59
PROVIDERS: ADMIT Internal Medicine; ATTEND Internal Medicine
PROC: 0QU13JZ Supplement Sacrum with Synthetic Substitute, Percutaneous Approach (ICD-10-PCS; principal; 2019-05-29)
DX: S32.119A Unspecified Zone I fracture of sacrum, initial encounter for closed fracture (principal); N17.0 Acute kidney failure with tubular necrosis; S22.089A Unspecified fracture of T11-T12 vertebra, initial encounter for closed fracture; D68.8 Other specified coagulation defects; N18.4 Chronic kidney disease, stage 4 (severe); I25.10 Atherosclerotic heart disease of native coronary artery without angina pectoris; D63.1 Anemia in chronic kidney disease; Z88.2 Allergy status to sulfonamides; D50.0 Iron deficiency anemia secondary to blood loss (chronic); E78.00 Pure hypercholesterolemia, unspecified; E78.5 Hyperlipidemia, unspecified; G62.9 Polyneuropathy, unspecified; G89.29 Other chronic pain; I12.9 Hypertensive chronic kidney disease with stage 1 through stage 4 chronic kidney disease, or unspecified chronic kidney disease; I48.0 Paroxysmal atrial fibrillation; K59.00 Constipation, unspecified; W18.39XA Other fall on same level, initial encounter; K80.20 Calculus of gallbladder without cholecystitis without obstruction; Z96.642 Presence of left artificial hip joint; N20.0 Calculus of kidney; M19.90 Unspecified osteoarthritis, unspecified site; T45.515A Adverse effect of anticoagulants, initial encounter; Z82.49 Family history of ischemic heart disease and other diseases of the circulatory system; Z95.1 Presence of aortocoronary bypass graft; Z91.81 History of falling; Z79.01 Long term (current) use of anticoagulants; Z79.899 Other long term (current) drug therapy; Y93.89 Activity, other specified; Y92.89 Other specified places as the place of occurrence of the external cause; Y99.8 Other external cause status
CPT/HCPCS: 22511; 36415; 72128; 72131; 74176; 76770; 80048; 80053; 81001; 82274; 82607; 83540; 83550; 85025; 85610; 85730; 93306; 96374; 96376; 99152; 99153; C1713; J0690; J2250; J3010; J3430; 97110; 97530; 97535; 99285-25; G0378

== ENCOUNTER 2019-08-03 07:10 | Outpatient (CLI) | payer BC, MEDICARE ==
[~2019-08-03] VITALS: Ht 154.9 cm; Wt 39.5 kg
[2019-08-03] VITALS (8 sets, daily range): BP systolic 115–166; BP diastolic 56–87
[~2019-08-03 07:10] MED LIST changes: +TIZA2CAP PO
[2019-08-03] MEDS ORDERED: LIDOCAINE WITH 8.4% SOD BICARB 3 ML DISP.SYRIN. ONE (07:48)
[2019-08-03 07:49] LABS: BASO % 1 % (0-3); EOS # 0.2 x10^3/uL (0.0-0.7); EOS % 3 % (0-3); HEMATOCRIT 26.8 % (36.0-47.0); LYMPH # 1.2 x10^3/uL (1.0-4.8); LYMPH % 24 % (24-48); MEAN CORPUSCULAR HEMOGLOBIN 25 pg (25-35); MEAN CORPUSCULAR HGB CONC 30 g/dL (31-37); MEAN CORPUSCULAR VOLUME 82 fL (79-100); MONO # 0.6 x10^3/uL (0.0-1.1); MONO % 11 % (0-9); NEUT # 3.1 x10^3/uL (1.8-7.7); NEUT % 62 % (31-73); PLATELET COUNT 176 x10^3/uL (140-400); RED BLOOD COUNT 3.27 x10^6/uL (3.50-5.40); RED CELL DISTRIBUTION WIDTH 20.1 % (11.5-14.5); WHITE BLOOD COUNT 5.1 x10^3/uL (4.0-11.0)
[2019-08-03] MEDS ORDERED: MIDAZOLAM HCL/PF 2 MG/2 ML VIAL. ONE (08:01)
[2019-08-03] MEDS ORDERED: fentaNYL PF VIAL 100 MCG/2 ML VIAL ONE (08:01)
[2019-08-03 08:02] LABS: PROTHROMBIN TIME PATIENT 13.3 SEC (11.7-14.0)
[2019-08-03] MEDS ORDERED: fentaNYL PF VIAL 100 MCG/2 ML VIAL IV ONE (08:15)
[2019-08-03] MEDS ORDERED: LIDOCAINE WITH 8.4% SOD BICARB 3 ML DISP.SYRIN. IJ ONE (08:15)
[2019-08-03] MEDS ORDERED: MIDAZOLAM HCL/PF 2 MG/2 ML VIAL. IV ONE (08:15)
--- NOTE | 2019-08-03 08:40 | PDOC ---
MODERATE SEDATION ASSESSMENT RISKS/ALTERNATIVES Risks/Alternatives Risks and alternatives of this type of sedation and procedure discussed with: RISK/ALTERNATIVES: Patient H & P ON CHART H & P H & P on chart and reviewed for co-morbid conditions and appropriate labs. H&P ON CHART: Yes STATUS PREG STATUS ASSESSED: Yes MEDS/ALLERGIES REVIEWED Meds/Allergies Reviewed Medications and Allergies including time and route of recently administered narcotics and sedatives. MEDS/ALLERGIES REVIEWED: Yes ASA RATING ASA RATING: II AIRWAY ASSESSMENT Airway Assessment Airway patency, oral function limitations, presence of caps, crowns, dentures, partials, and ability to extend neck assessed. AIRWAY ASSESSMENT: Yes MALLAMPATI SCORE MALLAMPATI SCORE: II PRE-SEDATION ASSESSMENT PRE-SEDATION ASSESSMENT: Yes BRENDAN HEREDIA MD Aug 03, 2019 08:40
--- NOTE | 2019-08-03 08:47 | RAD ---
CT-guided bone marrow biopsy. 08/03/2019 6:43 AM Indication: LEUKOPENIA Discussion: The risks and benefits of the procedure, including but not limited to, bleeding and infection were discussed patient. Informed consent was obtained. The patient was brought to the CT scanner and placed in the prone position. A timeout procedure was performed. Lawn Mower CT imaging of the pelvis demonstrated left ilium amenable to bone marrow biopsy. The overlying soft tissues were prepped and draped using maximum sterile barrier technique. 1% lidocaine without epinephrine was administered for local anesthesia. Under intermittent CT guidance, an OncControl needle was advanced into the bone marrow of the left iliac crest. 2 Aspirates and 1 core biopsy samples were obtained. Samples were delivered to pathology was present at the time of procedure. The needle was removed and manual pressure held to achieve hemostasis. No immediate complications were identified. The procedure was performed under conscious sedation including continuous cardiopulmonary monitoring via dedicated sedation nurse. Sedation time: 20 minutes Impression: Successful CT-guided bone marrow biopsy of the left iliac crest . PQRS Compliance Statement: One or more of the following individualized dose reduction techniques were utilized for this examination: 1. Automated exposure control 2. Adjustment of the mA and/or kV according to patient size 3. Use of iterative reconstruction technique
--- NOTE | 2019-08-03 10:30 | NUR ---
pt A&O x 3. denies pain, nausea or dizziness. dressing on left sacral site has pea size spot of drainage. tolerating po well. ambulated w/ walker w/o problem, d/c instructions given and questions answered. out to vehicle per w/c- pt's family to take her home.
== END 2019-08-03 10:30 | disposition home or self-care (01) ==
LOC: INTRAD 07:10
PROVIDERS: ATTEND Internal Medicine Hematology & Oncology
DX: D72.819 Decreased white blood cell count, unspecified (principal); D64.9 Anemia, unspecified; Z79.01 Long term (current) use of anticoagulants; Z88.1 Allergy status to other antibiotic agents
CPT/HCPCS: 36415; 38222; 77012; 85025; 85610; 85730; 88184; 88185; 88237; 99152; J2250; J3010

== ENCOUNTER → 2020-03-30 | Outpatient (CLI) | payer BC, MEDICARE ==
[2019-08-03 09:55] VITALS: BP 115/56
[~2020-03-30] MED LIST changes: +MULT-445 PO; -MULT1TAB52 PO
--- NOTE | 2020-03-30 16:33 | CARD ---
MR#: [id number] Date of Study: 03/30/2020 Ordering Physician: DOUG MCKENZIE, Referring Physician: DOUG MCKENZIE, Tech: Allie Chen APPROVED REPORT EXAM: Two-dimensional and M-mode echocardiogram with Doppler and color Doppler. Other Information Quality : AverageHR: 75bpm INDICATION Mitral Valve Disease Surgery/Intervention Pacemaker: Date: 2015 Mitral Valve clip 2018 RISK FACTORS Hypertension Hyperlipidemia 2D DIMENSIONS Left Atrium(2D)4.8 (1.6-4.0cm)IVSd1.2 (0.7-1.1cm) Aortic Root(2D)3.1 (2.0-3.7cm)LVDd4.1 (3.9-5.9cm) LVOT Diameter1.9 (1.8-2.4cm)PWd1.2 (0.7-1.1cm) LVDs2.0 (2.5-4.0cm)FS (%) 50.3 % SV59.6 mlLVEF(%)82.0 (>50%) Aortic Valve AoV Peak Sathish.205.4cm/sAoV VTI54.1cm AO Peak GR.16.9mmHgLVOT Peak Sathish.84.1cm/s LVOT VTI 20.89cmAO Mean GR.8mmHg RIVAS (VMAX)1.25ln5BQC (VTI)1.10cm2 Mitral Valve MV E Ptlalhmm334.8cm/sMV E Peak Gr.142mmHg MV DECEL [id number] A Jimywmoh168.1cm/s MV E Mean Gr.10mmHgMV TAS46ko E/A Ratio1.2MVA (PHT)4.03cm2 TDI E/Lateral E'22.4E/Medial E'24.5 Tricuspid Valve TR P. Yjaokwmr338he/sRAP FZDDEKAV0ptVd TR Peak Gr.43rtXjFPYM23yhMw LEFT VENTRICLE The left ventricle is normal size. There is borderline to mild concentric left ventricular hypertroph y. The left ventricular systolic function is normal. The Ejection Fraction is 55-60%. Apical wall mot ion consistent with pacemaker activation. RIGHT VENTRICLE The right ventricle is normal size. There is normal right ventricular wall thickness. The right ventr icular systolic function is normal. There is a pacemaker lead in the right ventricle. ATRIA The left atrium is moderately dilated. The right atrium is mildly dilated. The interatrial septum is intact with no evidence for an atrial septal defect or patent foramen ovale as noted on 2-D or Dopple r imaging. AORTIC VALVE The aortic valve is thickened but opens well. Doppler and Color Flow revealed trace to mild aortic re gurgitation. There is no significant aortic valvular stenosis. MITRAL VALVE Mitral valve clip is noted. There is no evidence of mitral valve prolapse. Mitral valve mean gradient 10.5 mmHg. Doppler and Color-flow revealed mild to moderate eccentric mitral regurgitation. TRICUSPID VALVE The tricuspid valve is normal in structure and function. Doppler and Color Flow revealed moderate tri cuspid regurgitation with an estimated PAP of 74 mmHg. There is no tricuspid valve stenosis. PULMONIC VALVE The pulmonic valve is not well visualized. Doppler and Color Flow revealed trace pulmonic valvular re gurgitation. GREAT VESSELS The aortic root is normal in size. The IVC is normal in size and collapses >50% with inspiration. PERICARDIAL EFFUSION There is no evidence of significant pericardial effusion. Critical Notification Critical Value: No <Conclusion> The left ventricular systolic function is normal. The Ejection Fraction is 55-60%. Apical wall motion consistent with pacemaker activation. There is a pacemaker lead in the right atrium and right ventricle. The left atrium is moderately dilated. Trace to mild aortic regurgitation. Mitral valve clip is noted. Mitral valve mean gradient 10.5 mmHg. Mild to moderate eccentric mitral regurgitation. Moderate tricuspid regurgitation with an estimated PAP of 74 mmHg. There is no evidence of significant pericardial effusion. Signed by : Doug Mckenzie, Electronically Approved : 03/30/2020 16:32:30
== END | disposition home or self-care (01) ==
LOC: ECHO 12:51
PROVIDERS: ATTEND Internal Medicine Cardiovascular Disease
DX: I08.3 Combined rheumatic disorders of mitral, aortic and tricuspid valves (principal)
CPT/HCPCS: 93306

== ENCOUNTER → 2020-10-12 | Outpatient (CLI) | payer BC, MEDICARE ==
[2019-08-03 09:55] VITALS: BP 115/56
[~2020-10-12] MED LIST changes: -AMIO200T4 PO; +AMIO200T6 PO; +CALC-627 PO; -CALC1TAB75 PO
[2020-10-12 15:32] LABS: BASO % 1 % (0-3); EOS % 1 % (0-3); HEMATOCRIT 29.6 % (36.0-47.0); HEMOGLOBIN 9.2 g/dL (12.0-15.5); LYMPH # 0.2 x10^3/uL (1.0-4.8); LYMPH % 3 % (24-48); MEAN CORPUSCULAR HEMOGLOBIN 36 pg (25-35); MEAN CORPUSCULAR HGB CONC 31 g/dL (31-37); MEAN CORPUSCULAR VOLUME 116 fL (79-100); MONO # 0.3 x10^3/uL (0.0-1.1); MONO % 5 % (0-9); NEUT # 5.6 x10^3/uL (1.8-7.7); NEUT % 91 % (31-73); PLATELET COUNT 164 x10^3/uL (140-400); RED BLOOD COUNT 2.56 x10^6/uL (3.50-5.40); RED CELL DISTRIBUTION WIDTH 18.7 % (11.5-14.5); WHITE BLOOD COUNT 6.2 x10^3/uL (4.0-11.0)
[2020-10-12 16:21] LABS: CALCIUM 8.8 mg/dL (8.5-10.1); CREATININE 2.1 mg/dL (0.6-1.0); GFR 22.2; POTASSIUM 4.4 mmol/L (3.5-5.1)
--- NOTE | 2020-10-12 18:06 | RAD ---
Examination: XR CHEST 2V History: Reason: CHRONIC DIASTOLIC HEART FAILURE. / Spl. Instructions: / History: Comparison/Correlation: 04/03/2019 CT chest without contrast Findings: Frontal and lateral view the chest obtained. Dual-lead left-sided pacemaker is present. Dony rnal wires are present. Epigastric surgical clips noted. Cardiomegaly present. Pulmonary vasculature is congested. Pulmonary interstitial thickening which may represent edema and/o r infiltrates of lung evans noted. Right lower rib fracture evident and chronic in appearance. Small bilateral pleural effusions. Significant compression fracture deformity of T12 vertebra is new since previous CT exam. Retrolisthesis of T12 over L1. Significant scoliosis of the thoracolumbar spine. Impression: Pulmonary vascular congestion. Underlying interstitial infiltrates may also be present. Bilateral ple ural effusions. T12 vertebral body compression fracture is present in the interval. Retrolisthesis of T12 in relation to L1. Correlate with trauma history. Electronically signed by: Serafin Parikh MD (10/12/2020 6:03 PM) [id number]
[2020-10-12 18:26] LABS: PLT ESTIMATE ADEQUATE (ADEQUATE)
[2020-10-12 18:27] LABS: ANISOCYTOSIS SLIGHT; OVALOCYTES FEW; POIKILOCYTOSIS SLIGHT; POLYCHROMASIA PRESENT; TEAR DROP CELLS OCC
[2020-10-12 18:28] LABS: SCHISTOCYTES OCC
== END ==
LOC: RAD 14:35
PROVIDERS: ATTEND Internal Medicine Cardiovascular Disease
DX: J90 Pleural effusion, not elsewhere classified (principal); M48.54XA Collapsed vertebra, not elsewhere classified, thoracic region, initial encounter for fracture; J98.4 Other disorders of lung; M41.85 Other forms of scoliosis, thoracolumbar region; M53.84 Other specified dorsopathies, thoracic region; R60.9 Edema, unspecified; I50.32 Chronic diastolic (congestive) heart failure
CPT/HCPCS: 71046; 80048; 80299; 83880; 84443; 85025

== ENCOUNTER → 2020-11-01 | Outpatient (CLI) | payer BC, MEDICARE ==
[2019-08-03 09:55] VITALS: BP 115/56
--- NOTE | 2020-11-01 13:46 | RAD ---
CT HEAD INDICATION: Reason: MEMORY LOSS / Spl. Instructions: / History: COMPARISON: 04/01/2019. Exposure: One or more of the following individualized dose reduction techniques were utilized for thi s examination: 1. Automated exposure control 2. Adjustment of the mA and/or kV according to patient size 3. Use of iterative reconstruction technique TECHNIQUE: 5 mm contiguous axial images were obtained from the skull base to the vertex in both bone and soft tissue algorithm. FINDINGS: Mild bilateral periventricular white matter hypodensities likely chronic small vessel ischemic diseas e. No evidence of acute intracranial hemorrhage. No extra-axial fluid collections. No mass effect or midline shift. Ventricular size is appropriate. Basal cisterns are patent. No fractures identified.Novak-white differentiation is preserved.Globes and orbits are within normal l imits. Paranasal sinuses and mastoid air cells are clear. IMPRESSION: No acute intracranial findings. Electronically signed by: Landen Gnozalez MD (11/01/2020 1:43 PM) [id number]
== END ==
LOC: CT 13:22
PROVIDERS: ATTEND Psychiatry & Neurology Neurology with Special Qualifications in Child Neurology
DX: R41.3 Other amnesia (principal)
CPT/HCPCS: 70450

== ENCOUNTER 2021-04-05 16:38 | Emergency (ER) | payer BC, MEDICARE ==
[~2021-04-05] VITALS: Ht 157.5 cm; Wt 42.0 kg
[~2021-04-05 16:38] MED LIST changes: +LISI10TA16 PO; -LISI10TA2 PO
--- NOTE | 2021-04-05 16:48 | PHYS DOC ---
Past Medical History Past Medical History: High Cholesterol, Hypertension (PATRICIA THOMPSON DO) Past Surgical History: Coronary Bypass Surgery, Hip Replacement, Pacemaker Additional Past Surgical Histo: VALVE (PATRICIA THOMPSON DO) Smoking Status: Never Smoker Alcohol Use: None Drug Use: None (PATRICIA THOMPSON DO) General Adult EDM: Chief Complaint: left knee pain HPI: HPI: Patient is a 89 year old female who was brought here by EMS from home after she fell in the bathroom, complained of left knee pain, could not get up from the sitting position, not able to put any weight on her left lower extremity. EMS gave her 50 mcg of fentanyl on route. Patient denies any head or neck injury, denies any back pain. Patient says he was standing in the bathroom trying to clean her hand somehow she slipped and fell on her left buttock area, when she tried to sit up she could not put any weight on her left leg because of pain in the back of her left knee. Patient says she cannot straighten her left leg due to pain. (PATRICIA THOMPSON DO) Review of Systems: Review of Systems: Constitutional: Denies fever or chills. [] Eyes: Denies change in visual acuity. [] HENT: Denies nasal congestion or sore throat. [] Respiratory: Denies cough or shortness of breath. [] Cardiovascular: Denies chest pain or edema. [] GI: Denies abdominal pain, nausea, vomiting, bloody stools or diarrhea. [] : Denies dysuria. [] Musculoskeletal: Positive for left knee pain, no back pain, no hip pain. Integument: Denies rash. [] Neurologic: Denies headache, focal weakness or sensory changes. [] Endocrine: Denies polyuria or polydipsia. [] Lymphatic: Denies swollen glands. [] Psychiatric: Denies depression or anxiety. [] (PATRICIA THOMPSON DO) Heart Score: C/O Chest Pain: N/A Risk Factors: Risk Factors: DM, Current or recent (<one month) smoker, HTN, HLP, family history of CAD, obesity. Risk Scores: Score 0 - 3: 2.5% MACE over next 6 weeks - Discharge Home Score 4 - 6: 20.3% MACE over next 6 weeks - Admit for Clinical Observation Score 7 - 10: 72.7% MACE over next 6 weeks - Early Invasive Strategies (PATRICIA THOMPSON DO) Allergies: Allergies: Allergies Coded Allergies Type Severity Reaction Last Updated Verified Sulfa (Sulfonamide Antibiotics) Allergy Intermediate HIVES 04/01/19 Yes (PATRICIA THOMPSON DO) Physical Exam: PE: Constitutional: Well developed, well nourished, no acute distress, non-toxic appearance. [] HENT: Normocephalic, atraumatic, bilateral external ears normal, oropharynx moist, no oral exudates, nose normal. [] Eyes: PERRLA, EOMI, conjunctiva normal, no discharge. [] Neck: Normal range of motion, no tenderness, supple, no stridor. [] Cardiovascular:Heart rate regular rhythm, no murmur [] Lungs & Thorax: Bilateral breath sounds clear to auscultation [] Abdomen: Bowel sounds normal, soft, no tenderness, no masses, no pulsatile masses. [] Skin: Warm, dry, no erythema, no rash. [] Back: No tenderness, no CVA tenderness. [] Extremities: Left knee tender and swollen, left knee in the flexed position. Left hip is nontender to palpation, left distal femur tender to palpation. NO open wound. Neurologic: Alert and oriented X 3, normal motor function, normal sensory function, no focal deficits noted. [] Psychologic: Affect normal, judgement normal, mood normal. [] (PATRICIA THOMPSON DO) Current Patient Data: Labs: Laboratory Tests Test 04/05/21 17:41 White Blood Count 4.0 x10^3/uL Red Blood Count 2.34 x10^6/uL Hemoglobin 8.4 g/dL Hematocrit 26.0 % Mean Corpuscular Volume 111 fL Mean Corpuscular Hemoglobin 36 pg Mean Corpuscular Hemoglobin Concent 32 g/dL Red Cell Distribution Width 16.4 % Platelet Count 135 x10^3/uL Neutrophils (%) (Auto) 85 % Lymphocytes (%) (Auto) 5 % Monocytes (%) (Auto) 8 % Eosinophils (%) (Auto) 1 % Basophils (%) (Auto) 1 % Neutrophils # (Auto) 3.4 x10^3/uL Lymphocytes # (Auto) 0.2 x10^3/uL Monocytes # (Auto) 0.3 x10^3/uL Eosinophils # (Auto) 0.1 x10^3/uL Basophils # (Auto) 0.0 x10^3/uL Platelet Estimate Pending Sodium Level 144 mmol/L Potassium Level 4.7 mmol/L Chloride Level 106 mmol/L Carbon Dioxide Level 29 mmol/L Anion Gap 9 Blood Urea Nitrogen 43 mg/dL Creatinine 2.3 mg/dL Estimated GFR (Cockcroft-Gault) 20.0 BUN/Creatinine Ratio 19 Glucose Level 163 mg/dL Calcium Level 8.7 mg/dL Total Bilirubin 0.6 mg/dL Aspartate Amino Transf (AST/SGOT) 44 U/L Alanine Aminotransferase (ALT/SGPT) 30 U/L Alkaline Phosphatase 122 U/L Total Protein 6.0 g/dL Albumin 3.3 g/dL Albumin/Globulin Ratio 1.2 (PATRICIA THOMPSON DO) EKG: EKG: [] (PATRICIA THOMPSON DO) Radiology/Procedures: Radiology/Procedures: [] Impression: [facility] [address] [place], [place] [id number] IMAGING REPORT Signed PATIENT: ADDISON GARCIA ACCOUNT: [id number] : 1930 LOCATION: ER AGE: 89 SEX: F EXAM STATUS: REG ER ORD. PHYSICIAN: PATRICIA THOMPSON DO REASON: fell , left hip pain, left pelvic pain PROCEDURE: HIP LEFT 2V WITH PELVIS Two-view left hip and three-view left knee dated 04/05/2021. No comparison available. Clinical data indication: Pain after fall. FINDINGS: 2 views of left hip show old healed fracture of the intertrochanteric left femur. There is anterior grade medullary nail with stabilizing femoral neck rods in place. Interlocking screws at the distal femoral stem. Hip alignment is anatomic. There are old healed fractures of the superior and inferior pubic ramus on the left. Mild degenerative change of the right hip joint with evidence of prior sacral plasty in the left. 3 views of left knee show a comminuted intra-articular split fracture of the distal femur, bisecting the femoral condyles. There is mild dorsal displacement with impaction. Proximal tibia and fibular intact. No additional fractures are seen. Joint effusion with soft tissue swelling. Mild tricompartmental DJD. IMPRESSION: 1. Intra-articular bicondylar distal femur fracture as described. 2. Old healed fracture of the proximal left femur status post ORIF. 3. There are also old healed fractures of the superior and inferior pubic ramus on the left with evidence of prior left sacral plasty. 4. Mild degenerative changes. Electronically signed by: Eliel Greer MD (04/05/2021 5:11 PM) [facility] [place]ATED and SIGNED BY: ELIEL GREER MD DATE: 04/05/21 [id number] (PATRICIA THOMPSON DO) Course & Med Decision Making: Course & Med Decision Making Pertinent Labs and Imaging studies reviewed. (See chart for details) Patient is an 89-year-old female who was brought here by EMS from home after she fell in the bathroom causing a fracture of her left distal femur, discussed with the orthopedic surgeon on-call Dr. Jonah Sinclair who reviewed the x-rays and recommended that patient need to be transferred to a trauma center due to the nature of her injury. Patient care was endorsed to the incoming physician at shift change at [address] Dennise Krishnamurthy, she will arrange for transfer of the patient to another hospital. (PATRICIA THOMPSON DO) Course & Med Decision Making I received signout at shift change and reevaluated patient. I spoke to patient's son Satish ([phone]) regarding her care via phone and ed, (patient consents to his/her/their knowledge and involvement in pts' medical care). Concern for accidental mechanical fall with left distal femur bicondylar fracture. Patient with no signs of head trauma. Will transfer to [facility] for higher level of care on trauma evaluation per Ortho recommendations. Patient stable at time of transfer and agrees with this plan. I have spoken with the patient and/or caregivers. I have explained the patient's condition, diagnosis and treatment plan based on the information available to me at this time. I have answered the patient's and/or caregivers questions and answered any concerns. The patient and/or caregivers have as good an understanding of the patient's diagnosis, condition and treatment plan as can be expected at this point. The patient has been stabilized within the capability of the emergency department. The patient will be transported for further care and management or will be moved to an observation or inpatient ser vice. I have communicated with the staff or medical practitioner taking over this patient's care. (DENNISE KRISHNAMURTHY DO) Dragon Disclaimer: Dragon Disclaimer: This electronic medical record was generated, in whole or in part, using a voice recognition dictation system. (PATRICIA THOMPSON DO) Departure Departure Impression: Primary Impression: Closed fracture of left distal femur Additional Impressions: Acute renal failure superimposed on chronic kidney disease Macrocytic anemia Disposition: 02 (, Dr. Moses Godfrey) Condition: STABLE Referrals: SOURAV CASTREJON MD (PCP) PATRICIA THOMPSON DO Apr 05, 2021 16:48 DENNISE KRISHNAMURTHY DO Apr 05, 2021 19:29
--- NOTE | 2021-04-05 17:13 | RAD ---
Two-view left hip and three-view left knee dated 04/05/2021. No comparison available. Clinical data indication: Pain after fall. FINDINGS: 2 views of left hip show old healed fracture of the intertrochanteric left femur. There is anterior g rade medullary nail with stabilizing femoral neck rods in place. Interlocking screws at the distal fe moral stem. Hip alignment is anatomic. There are old healed fractures of the superior and inferior pu bic ramus on the left. Mild degenerative change of the right hip joint with evidence of prior sacral plasty in the left. 3 views of left knee show a comminuted intra-articular split fracture of the distal femur, bisecting the femoral condyles. There is mild dorsal displacement with impaction. Proximal tibia and fibular in tact. No additional fractures are seen. Joint effusion with soft tissue swelling. Mild tricompartment al DJD. IMPRESSION: 1. Intra-articular bicondylar distal femur fracture as described. 2. Old healed fracture of the proximal left femur status post ORIF. 3. There are also old healed fractures of the superior and inferior pubic ramus on the left with evid ence of prior left sacral plasty. 4. Mild degenerative changes. Electronically signed by: Eliel Greer MD (04/05/2021 5:11 PM) JEWEL
--- NOTE | 2021-04-05 17:14 | RAD ---
Single view chest dated 04/05/2021 5:11 PM: COMPARISON: Single view chest dated 04/05/2021. Comparison made to 10/12/2020. Clinical data indication: Preop left knee fracture. FINDINGS: Single upright view the chest shows moderate cardiac enlargement, unchanged. There is a dual lead le ft subclavian pacer in place. The patient is status post median sternotomy. Linear metallic device ov er the left heart is unchanged. Patchy perihilar and bibasilar airspace disease with diffuse increased interstitial markings. Finding s a mildly increased from prior study. There is blunting of left costophrenic sulcus. No pneumothorax . IMPRESSION: 1. Perihilar airspace disease, edema versus pneumonia. Suspected small left pleural effusion. 2. Stable cardiomegaly. Electronically signed by: Eliel Greer MD (04/05/2021 5:12 PM) JEWEL
[2021-04-05 17:52] LABS: BASO % 1 % (0-3); EOS # 0.1 x10^3/uL (0.0-0.7); EOS % 1 % (0-3); HEMOGLOBIN 8.4 g/dL (12.0-15.5); LYMPH # 0.2 x10^3/uL (1.0-4.8); LYMPH % 5 % (24-48); MEAN CORPUSCULAR HEMOGLOBIN 36 pg (25-35); MEAN CORPUSCULAR HGB CONC 32 g/dL (31-37); MEAN CORPUSCULAR VOLUME 111 fL (79-100); MONO # 0.3 x10^3/uL (0.0-1.1); MONO % 8 % (0-9); NEUT # 3.4 x10^3/uL (1.8-7.7); NEUT % 85 % (31-73); PLATELET COUNT 135 x10^3/uL (140-400); RED BLOOD COUNT 2.34 x10^6/uL (3.50-5.40); RED CELL DISTRIBUTION WIDTH 16.4 % (11.5-14.5)
[2021-04-05 18:10] LABS: CALCIUM 8.7 mg/dL (8.5-10.1); CREATININE 2.3 mg/dL (0.6-1.0); POTASSIUM 4.7 mmol/L (3.5-5.1)
[2021-04-05 18:15] LABS: ALBUMIN 3.3 g/dL (3.4-5.0); ALBUMIN/GLOBULIN RATIO 1.2 (1.0-1.7); TOTAL BILIRUBIN 0.6 mg/dL (0.2-1.0)
[2021-04-05 18:43] LABS: PLT ESTIMATE DECREASED (ADEQUATE); POLYCHROMASIA PRESENT
[2021-04-05 18:44] LABS: ANISOCYTOSIS SLIGHT; OVALOCYTES FEW; POIKILOCYTOSIS SLIGHT; TEAR DROP CELLS OCC
[2021-04-05 19:20] VITALS: BP 157/68
[2021-04-05] MEDS ORDERED: KETOROLAC 30 MG/ML VIAL. ONE (19:23)
[2021-04-05] MEDS ORDERED: ACETAMINOPHEN 500 MG TABLET PO ONE (19:30)
[2021-04-05] MEDS ORDERED: KETOROLAC 15 MG/ML VIAL. IVP ONE (19:30)
--- NOTE | 2021-04-06 06:25 | EKG ---
[facility] [address] [place] [address] Test Date: 2021-04-05 Test Time: 17:12:11 Pat Name: ADDISON GARCIA Department: Room: Gender: F Engineer Chief: : 1930 Requested By: PATRICIA THOMPSON Order Number: [id number] Reading MD: Measurements Intervals [place] Rate: 67 P: -45 NM: 284 QRS: -26 QRSD: 106 T: 137 QT: 472 QTc: 502 Interpretive Statements SINUS RHYTHM PROLONGED NM INTERVAL LEFTWARD AXIS LVH WITH REPOLARIZATION ABNORMALITY PROLONGED QT ABNORMAL ECG RI6.02 Compared to ECG 04/05/2021 17:10:47 First degree AV block now present
--- NOTE | 2021-04-06 06:38 | EKG ---
[facility] [address] [place] [address] Test Date: 2021-04-05 Test Time: 17:10:47 Pat Name: ADDISON GARCIA Department: Room: Gender: F Journeyman Pipe Welder: : 1930 Requested By: SEKOU KRISHNAMURTHY Order Number: [id number] Reading MD: Measurements Intervals [place] Rate: 65 P: WA: QRS: -27 QRSD: 108 T: 148 QT: 524 QTc: 546 Interpretive Statements IRREGULAR RHYTHM, NO P-WAVE FOUND VENTRICULAR PREMATURE COMPLEX(ES) LEFTWARD AXIS LVH WITH REPOLARIZATION ABNORMALITY QRS(T) CONTOUR ABNORMALITY CONSIDER ANTEROSEPTAL MYOCARDIAL DAMAGE PROLONGED QT ABNORMAL ECG RI6.02 No previous ECG available for comparison
== END 2021-04-05 20:24 | disposition short-term general hospital (02) ==
LOC: ER 16:38
DX: S72.402A Unspecified fracture of lower end of left femur, initial encounter for closed fracture (principal); M25.552 Pain in left hip; M25.562 Pain in left knee; R07.89 Other chest pain; E78.00 Pure hypercholesterolemia, unspecified; I10 Essential (primary) hypertension; Z95.0 Presence of cardiac pacemaker; Z95.1 Presence of aortocoronary bypass graft; Z88.2 Allergy status to sulfonamides; W01.0XXA Fall on same level from slipping, tripping and stumbling without subsequent striking against object, initial encounter; Y93.89 Activity, other specified; Y92.89 Other specified places as the place of occurrence of the external cause; Y99.8 Other external cause status
CPT/HCPCS: 29505; 36415; 71045; 73502; 73562; 80053; 85025; 86850; 86900; 86901; 87426; 93005; 96374; 99285; J1885

== ENCOUNTER → 2021-04-21 | Outpatient (CLI) | payer BC, MEDICARE ==
[2021-04-05 19:20] VITALS: BP 157/68
[~2021-04-21] MED LIST changes: +AMIO200T53 PO; -AMIO200T6 PO; +CYCL10TA19 PO; -CYCL10TA2 PO
--- NOTE | 2021-04-21 12:08 | RAD ---
INDICATION: Reason: LT Leg Swelling/Knee Pain; HX of LT Femur FX 2 weeks ago / Spl. Instructions: / History: COMPARISON: None. TECHNIQUE: Grayscale, color and doppler ultrasound images were obtained of the left lower extremity v enous vasculature. LEFT: No thrombus identified in the common femoral vein, femoral vein, popliteal vein or visualized calf ve ins. IMPRESSION: * No thrombus identified in deep venous system of the left lower extremity. Electronically signed by: Roque Jones MD (04/21/2021 12:05 PM) [id number]
== END ==
LOC: US 11:07
PROVIDERS: ATTEND Physical Medicine & Rehabilitation
DX: M79.89 Other specified soft tissue disorders (principal); M25.562 Pain in left knee
CPT/HCPCS: 93971

== ENCOUNTER 2021-05-04 10:50 | Emergency (ER) | payer BC, MEDICARE ==
[~2021-05-04] VITALS: Ht 157.5 cm; Wt 45.0 kg
[~2021-05-04 10:50] MED LIST changes: -AMIO200T53 PO; +AMIO200T6 PO; -CYCL10TA19 PO; +CYCL10TA2 PO
--- NOTE | 2021-05-04 11:07 | PHYS DOC ---
Past Medical History Past Medical History: High Cholesterol, Hypertension Additional Past Medical Histor: H/O INCONTINENT, PT UNSURE OF MEDICAL HX, RECENT FEMUR FX. Past Surgical History: Coronary Bypass Surgery, Hip Replacement, Pacemaker Additional Past Surgical Histo: VALVE Smoking Status: Never Smoker Alcohol Use: None Drug Use: None General Adult EDM: Chief Complaint: WEAKNESS/GENERALIZED HPI: HPI: This is a pleasant 89-year-old female who presents emergency department today after getting labs drawn. Her labs show new onset acute renal failure. She has not felt well for about 2 weeks generally feeling pain all over. She has had some pain on her left flank which she describes as mild intermittent without alleviating factors. Otherwise she denies vomiting fevers chills chest pain or shortness of breath. Review of systems negative for headache back pain dysuria polyuria or vomiting. All other review of systems negative. 89-year-old female presenting with new onset renal failure after a femur fracture repair currently in rehabilitation. Afebrile. Blood pressure was initially 98/53. Currently 125/59. CBC shows mild leukocytosis of 11.8. Hemoglobin 10.5. Chemistry panel shows a BUN of 92. Creatinine of 4. AST 120. ALT 76. Alk phos 209. Troponin within normal limits. Urinalysis shows cloudy urine with large blood. Large leuk esterase. Many bacteria. We gave the patient IV Rocephin. Covid test negative. CT abdomen pelvis shows atrophic right kidney with multiple left renal calculi measuring 2 to 1 cm in size with left hydronephrosis and hydroureter without an obvious ureteral calculus. Diffuse thickening suggestive of possible underlying stricture. Given the results of the CT with UTI and renal failure we will need to transfer the patient to a place with urology. I called [place] emergency department and they never called us back. We then called [facility] who is full on capacity and then who is also following capacity. [facility] had MedSurg beds at [facility] and so the patient be transferred there for urology consultation. I spoke with the hospitalist nurse practitioner Souleymane who accepts the patient on behalf of Dr. Metzger. Heart Score: C/O Chest Pain: No Risk Factors: Risk Factors: DM, Current or recent (<one month) smoker, HTN, HLP, family history of CAD, obesity. Risk Scores: Score 0 - 3: 2.5% MACE over next 6 weeks - Discharge Home Score 4 - 6: 20.3% MACE over next 6 weeks - Admit for Clinical Observation Score 7 - 10: 72.7% MACE over next 6 weeks - Early Invasive Strategies Allergies: Allergies: Allergies Coded Allergies Type Severity Reaction Last Updated Verified Sulfa (Sulfonamide Antibiotics) Allergy Intermediate HIVES 04/01/19 Yes Physical Exam: PE: Constitutional: Well developed, well nourished, no acute distress, non-toxic appearance. [] HENT: Normocephalic, atraumatic, bilateral external ears normal, oropharynx moist, no oral exudates, nose normal. [] Eyes: PERRLA, EOMI, conjunctiva normal, no discharge. [] Neck: Normal range of motion, no tenderness, supple, no stridor. [] Cardiovascular:Heart rate regular rhythm, no murmur [] Lungs & Thorax: Bilateral breath sounds clear to auscultation [] Abdomen: Bowel sounds normal, soft, no tenderness, no masses, no pulsatile masses. [] No rebound tenderness or guarding. Skin: Warm, dry, no erythema, no rash. [] Back: No tenderness, no CVA tenderness. [] Extremities: The patient's left lower extremity is in a soft splint. The foot is neurovascularly intact with palpable pulse and 2-second cap refill. The remainder the extremities are unremarkable nontender neurovascular intact and without any signs of obvious trauma. Neurologic: Alert and oriented X 3, normal motor function, normal sensory function, no focal deficits noted. [] Psychologic: Affect normal, judgement normal, mood normal. [] EKG: EKG: EKG shows regular rate with a regular rhythm. No obvious P waves. There is a sign of a probable pacemaker spike. Not suggestive of ACS Radiology/Procedures: Radiology/Procedures: [] Course & Med Decision Making: Course & Med Decision Making Pertinent Labs and Imaging studies reviewed. (See chart for details) [] Dragon Disclaimer: Dragon Disclaimer: This electronic medical record was generated, in whole or in part, using a voice recognition dictation system. Departure Departure Impression: Primary Impression: Acute renal failure Additional Impressions: Ureteral stricture Atrophic kidney Disposition: 02 SHORT TERM HOSPITAL Condition: STABLE Referrals: SOURAV CASTREJON MD (PCP) RICO KITCHEN MD May 04, 2021 11:07
[2021-05-04 11:56] LABS: BASO # 0.1 x10^3/uL (0.0-0.2); BASO % 1 % (0-3); EOS # 0.1 x10^3/uL (0.0-0.7); EOS % 1 % (0-3); HEMATOCRIT 33.2 % (36.0-47.0); HEMOGLOBIN 10.5 g/dL (12.0-15.5); LYMPH # 0.3 x10^3/uL (1.0-4.8); LYMPH % 3 % (24-48); MEAN CORPUSCULAR HEMOGLOBIN 32 pg (25-35); MEAN CORPUSCULAR HGB CONC 32 g/dL (31-37); MEAN CORPUSCULAR VOLUME 102 fL (79-100); MONO # 0.4 x10^3/uL (0.0-1.1); MONO % 3 % (0-9); NEUT # 10.9 x10^3/uL (1.8-7.7); NEUT % 93 % (31-73); PLATELET COUNT 164 x10^3/uL (140-400); RED BLOOD COUNT 3.27 x10^6/uL (3.50-5.40); RED CELL DISTRIBUTION WIDTH 20.4 % (11.5-14.5); WHITE BLOOD COUNT 11.8 x10^3/uL (4.0-11.0)
[2021-05-04 12:06] LABS: CALCIUM 8.2 mg/dL (8.5-10.1); GFR 10.6; POTASSIUM 4.1 mmol/L (3.5-5.1)
[2021-05-04 12:11] LABS: ALBUMIN/GLOBULIN RATIO 0.5 (1.0-1.7); TOTAL BILIRUBIN 0.8 mg/dL (0.2-1.0); TOTAL PROTEIN 5.7 g/dL (6.4-8.2)
--- NOTE | 2021-05-04 13:06 | RAD ---
CT scan abdomen and pelvis without contrast 05/04/2021 CLINICAL HISTORY: Renal failure. TECHNIQUE: Unenhanced, contiguous, 2 mm axial sections were obtained through the abdomen and pelvis. One or more of the following individualized dose reduction techniques were utilized for this study: 1. Automated exposure control. 2. Adjustment of the mA and/or kV according to patient size. 3. Use of iterative reconstruction technique. FINDINGS: Comparison study is dated 05/27/2019. Images through the lung bases demonstrate moderate cardiomegaly. Mitral annular calcifications are se en. Extensive coronary artery calcifications are noted. Pacemaker leads are noted in place. Scattered calcification of the thoracic aorta is seen. Small to moderate-sized pleural effusions are seen bila terally, left greater than right. Bilateral lower lobe atelectasis is seen, left greater than right. The liver is mildly enlarged measuring 20 cm in length. The spleen, pancreas and adrenal glands are w ithin normal limits. Marked atrophy of the right kidney is again noted. Several nonobstructing calcul i are seen scattered throughout the left kidney. These measure 2 mm to 1 cm in size. No ureteral calc ulus is seen. Mild left hydronephrosis and hydroureter is seen extending to the distal left ureter ne ar the level of the left UVJ. Diffuse wall thickening of the distal left ureter is seen. These findin gs are new since previous examination. Atherosclerotic calcification of the abdominal aorta and its branches is seen. Aneurysmal dilatation of the infrarenal abdominal aorta is seen. This measures 3.3 cm in greatest transverse diameter. This is unchanged. The gallbladder appears to extend laterally from the inferior aspect of the liver cont racted. There is no evidence of bowel obstruction. Images pelvis demonstrated the urinary bladder distended with urine. Calcifications are seen within t he pelvis consistent with phleboliths. A moderate amount of free fluid is seen within the pelvis. A i ntramedullary romel with locking bone screws seen within the proximal left femur. Mild to moderate S-sh aped curvature of the thoracolumbar spine is seen. Old compression fracture of the T12 vertebral body is noted. The patient is post left-sided sacral plasty. Old healed fracture of the left superior ramón us is noted. Degenerative changes are seen involving lower thoracic and throughout the lumbar spine a long with both hips. IMPRESSION: 1. . Moderate cardiomegaly. Small to moderate-sized pleural effusions with bilateral lower lobe atele ctasis, left greater than right. 2. Marked atrophy of the right kidney is again seen. Multiple nonobstructing left renal calculi are n oted which measure 2 mm to 1 cm in size. Mild left hydronephrosis and hydroureter is seen which exten ds to the distal left ureter at the level of the left UVJ. No ureteral calculus is visualized. There is diffuse wall thickening of the distal left ureter which could reflect an underlying stricture. 3. 3.2 cm infrarenal abdominal aortic aneurysm, unchanged. 4. Moderate amount of free fluid is seen within the pelvis. Electronically signed by: Jonah Selby MD (05/04/2021 1:04 PM) [id number]
[2021-05-04 14:03] LABS: % BANDS 6 % (0-9); % LYMPHS 5 % (24-48); % MONOS 1 % (0-10); % SEGS 88 % (35-66); PLT ESTIMATE ADEQUATE (ADEQUATE); POLYCHROMASIA SLIGHT; TOXIC GRANULATION MOD
[2021-05-04 14:04] LABS: ANISOCYTOSIS MOD
[2021-05-04 14:05] LABS: SCHISTOCYTES FEW
[2021-05-04 16:37] LABS: BILIRUBIN,URINE NEGATIVE (NEG); CLARITY,URINE CLOUDY; COLOR,URINE YELLOW; NITRITE,URINE NEGATIVE (NEG); PROTEIN,URINE 100 mg/dL (NEG-TRACE); UROBILINOGEN,URINE 0.2 mg/dL (0.2 mg/dL)
[2021-05-04 16:49] LABS: BACTERIA,URINE MANY /HPF (0-FEW); WBC,URINE >40 /HPF (0-4)
[2021-05-04] MEDS ORDERED: ACETAMINOPHEN 325 MG TABLET. PO ONE (17:00)
[2021-05-04] MEDS ORDERED: cefTRIAXone IV Push 1 GM VIAL. IVP ONE (17:00)
[2021-05-04] MEDS ORDERED: IV NORMAL SALINE 500ML BAG 500 ML IV ONE (17:30)
[2021-05-04 20:00] VITALS: BP 112/56
== END 2021-05-04 21:14 | disposition short-term general hospital (02) ==
LOC: ER 10:50
DX: N17.9 Acute kidney failure, unspecified (principal); Z20.822 Contact with and (suspected) exposure to COVID-19; N13.1 Hydronephrosis with ureteral stricture, not elsewhere classified; I12.9 Hypertensive chronic kidney disease with stage 1 through stage 4 chronic kidney disease, or unspecified chronic kidney disease; N18.9 Chronic kidney disease, unspecified; E78.00 Pure hypercholesterolemia, unspecified; Z95.0 Presence of cardiac pacemaker; Z95.1 Presence of aortocoronary bypass graft; I71.4 Abdominal aortic aneurysm, without rupture; Z88.2 Allergy status to sulfonamides
CPT/HCPCS: 36415; 74176; 80053; 81001; 84484; 85007; 85025; 87086; 87426; 93005; 96361; 96374; 99285; J0696; J7040; U0003; U0005; 87077; 87186